=== PATIENT | female | born 1995 | race Caucasian/White ===

== ENCOUNTER 2020-05-21 11:19 | Emergency (ER) | payer OTHER, SELFPAY ==
[2020-05-21 11:30] VITALS: BP 147/91; PULSE 124; RESP 18; TEMP 36.9; O2SAT 97; BMI 29.2
--- NOTE | 2020-05-21 11:45 | HMH.EDGENADL ---
ED Disposition Clinical Impression: Colitis Disposition: Home, Self-Care Condition on Discharge: Good Instructions: DI for Diarrhea and Traveler's Diarrhea -- Adult Referrals: Roberto Winters [Primary Care Provider] - 3 days - Critical Care Critical Care Time: No Attestation: On 05/21/20, the high probability of a clinically significant, sudden or life threatening deterioration of the following system(s) required my full and direct attention, intervention and personal management. The time I documented below is in addition to time spent performing reported procedures but includes the following listed in this critical care notation. Medical Decision Making - Medical Records Medical records reviewed: Yes: I reviewed the patient's medical records. - Louie Inquiry Pt receiving controlled substance: No Vital Signs: 05/21/20 11:30 05/21/20 15:04 05/21/20 15:30 Temperature 98.4 F Temperature Source Oral Pulse Rate [Right Radial] 124 H 112 H 109 H Respiratory Rate 18 20 Blood Pressure [Right Arm] 147/91 H 94/53 L 108/60 L Blood Pressure Mean [Right Arm] 109 66 76 Blood Pressure Source [Right Arm] Automatic Cuff Automatic Cuff Automatic Cuff Blood Pressure Position [Right Arm] Sitting Sitting Sitting 02 Sat by Pulse Oximetry 97 95 100 Oxygen Delivery Method Room Air Room Air - Lab Data Lab results reviewed: Yes: I reviewed the patient's lab results. Lab Results 05/21/20 11:35: WBC 12.1 H, RBC 5.47 H, Hgb 12.4, Hct 39.4, MCV 72.0 L, MCH 22.6 L, MCHC 31.4 L, RDW 17.6 H, Plt Count 250, MPV 8.0, Neut % (Auto) 76.4, Lymph % (Auto) 17.9, [place] % (Auto) 3.9, Eos % (Auto) 1.5, Baso % (Auto) 0.3, Neut # (Auto) 9.3 H, Lymph # (Auto) 2.2, [place] # (Auto) 0.5, Eos # (Auto) 0.2, Baso # (Auto) 0.0 05/21/20 11:35: Sodium 137, Potassium 3.5, Chloride 102, Carbon Dioxide 23, Anion Gap 15.5 H, BUN 7, Creatinine 0.70, Estimated Creat Clear 134, Estimated GFR 100, Est GFR ( Amer) 121, Glucose 79, Calcium 8.8, Total Bilirubin 0.4, AST 21, ALT 13, Alkaline Phosphatase 121, Total Protein 7.2, Albumin 4.0, Globulin 3.2, Albumin/Globulin Ratio 1.3, Lipase 656 H 05/21/20 11:35: SARS-CoV-2 IgG Ab (Rapid) Negative, SARS-CoV-2 IgM Ab (Rapid) Negative 05/21/20 11:35: Serum HCG, Qual Negative 05/21/20 11:50: Lactate 0.8 05/21/20 15:15: Urine Color Yellow, Urine Appearance Clear, Urine pH 6.0, Ur Specific [place] 1.020, Urine Protein Negative, Urine Glucose (UA) Negative, Urine Ketones 3+, Urine Blood Negative, Urine Nitrate Negative, Urine Bilirubin Negative, Urine Urobilinogen 0.2, Ur Leukocyte Esterase Negative, Ur Squamous Epith Cells 10-20 05/21/20 15:15: Urine HCG, Qual Negative Result diagrams: 05/21/20 11:35 05/21/20 11:35 Orders (Tests/Meds): ED MEDICATIONS Generic Name Dose Route Start Last Admin Trade Name Freq PRN Reason Stop Dose Admin Sodium Chloride 1,000 mls @ 999 mls/hr 05/21/20 15:00 05/21/20 15:28 Sod Chlor 0.9% 1000ml Bag IV 05/21/20 16:00 999 mls/hr .Q1H1M NEHA Administration Discontinued Medications Generic Name Dose Route Start Last Admin Trade Name Freq PRN Reason Stop Dose Admin Sodium Chloride 1,000 mls @ 999 mls/hr 05/21/20 11:45 05/21/20 11:54 Sod Chlor 0.9% 1000ml Bag IV 05/21/20 12:45 999 mls/hr .Q1H1M NEHA Administration Sodium Chloride 1,000 mls @ 999 mls/hr 05/21/20 13:00 05/21/20 13:04 Sod Chlor 0.9% 1000ml Bag IV 05/21/20 14:00 999 mls/hr .Q1H1M NEHA Administration Iopamidol 75 ml 05/21/20 14:28 05/21/20 14:29 Iopamidol-370 (76%);100ml Bottle IV 05/21/20 14:29 75 ml ONCE ONE Administration Sodium Chloride 10 ml 05/21/20 14:28 05/21/20 14:29 Sodium Chloride 0.9% 10ml Syr (Rad Only) IV 05/21/20 14:29 10 ml ONCE ONE Administration - CT Data CT Scan: Abdomen, Pelvis Time Received: 15:[address] Reviewed: Yes: I have reviewed the patient's CT results Findings Narrative: Diffuse colitis, 7 mm appendix of uncertain significance Med
[2020-05-21 11:52] LABS: Chloride 102 mmol/L (98-107)
[2020-05-21 11:53] LABS: Basophils % 0.3 % (0.1-2.0); Eosinophils # 0.2 K/mm3 (0.0-0.4); Eosinophils % 1.5 % (0.1-12.0); Hematocrit 39.4 % (37.0-47.0); Hemoglobin 12.4 g/dL (12.2-16.2); Lymphocytes # 2.2 K/mm3 (0.7-4.5); Lymphocytes % 17.9 % (10-50); Mean Corpuscular HGB Conc 31.4 g/dL (31.8-35.4); Mean Corpuscular Hemoglobin 22.6 pg (27.0-31.2); Monocytes # 0.5 K/mm3 (0.1-1.0); Monocytes % 3.9 % (1.7-9.3); Neutrophils # 9.3 K/mm3 (1.8-7.8); Neutrophils % 76.4 % (37.0-80.0); Platelet Count 250 K/mm3 (142-424); Potassium 3.5 mmoL/L (3.5-5.1); Red Blood Count 5.47 M/mm3 (4.20-5.40); Red Cell Distribution Width 17.6 % (11.5-17.5); Sodium 137 mmol/L (136-145); White Blood Count 12.1 K/mm3 (4.8-10.8)
[2020-05-21 11:55] LABS: Alanine Aminotransferase 13 U/L (12-78); Aspartate Amino Transferase 21 U/L (14-36); Blood Urea Nitrogen 7 mg/dl (7-17); Creatinine Clearance Estimated 134 mL/min (50-200); Estimated Glomerular Filt Rate 100 ml/min (>60); GFR (African American) 121 ML/MIN (>60)
[2020-05-21 11:56] LABS: Albumin/Globulin Ratio 1.3 (1.1-1.8); Alkaline Phosphatase 121 U/L (38-126); Anion Gap 15.5 mEq/L (5-15); Bilirubin,Total 0.4 mg/dl (0.2-1.3); Calcium 8.8 mg/dl (8.4-10.2); Carbon Dioxide 23 mmol/L (22.0-30.0); Globulin 3.2 g/dL (1.3-3.2); Glucose 79 mg/dl (74-100); Total Protein,Serum 7.2 g/dl (6.3-8.2)
[2020-05-21 12:01] LABS: Lipase 656 U/L (23-300)
--- NOTE | 2020-05-21 12:05 | CT_ITS ---
PROCEDURE: CT ABDOMEN PELVIS W CON CLINICAL INDICATION: diarrhea, elevated lipase COMPARISON: No exams were available for comparison TECHNIQUE: IV Contrast: 75ML Isovue 370 Oral Contrast None Axial images obtained with sagittal and coronal reformats. All CT scans at the facility use one or more dose reduction, viz: automated exposure control, ma/kV adjustment per patient size (including targeted exams where dose is matched to indication, i.e. head), or iterative reconstruction technique. FINDINGS: LOWER THORAX: No acute finding ABDOMEN & PELVIS: The liver, spleen, adrenal glands, and pancreas have an unremarkable appearance. No renal or ureteral calculi. There is diffuse thickening of the entire colon with mild stranding of the pericolic fat consistent with pancolitis. No obstruction or free air. No evidence pneumatosis. There is mild prominence of the appendix measuring up to 7 mm in diameter. No stranding of the periappendiceal fat.. There is some minimal fluid in the right pericolic gutter. There are few scattered small mesenteric and retroperitoneal lymph nodes. No acute bony findings. IMPRESSION: Diffuse colitis involving the entire colon Mild prominence of the appendix of questionable clinical significance. Dictated by: Benedicto Yan MD 05/21/2020 14:54 Benedicto Yan MD in [place] 05/21/2020 14:54
[2020-05-21 12:16] LABS: Lactic Acid 0.8 mmol/L (0.7-2.1)
[2020-05-21 12:32] LABS: Coronavirus 19 IgG Antibody Negative (Negative); Coronavirus 19 IgM Antibody Negative (Negative)
[2020-05-21 13:05] LABS: HCG Qualitative, Serum Negative (Negative)
--- NOTE | 2020-05-21 13:24 | PC.NURSE ---
Pt going for CT
[2020-05-21 15:04] VITALS: BP 94/53; PULSE 112; O2SAT 95
[2020-05-21 15:26] LABS: Microscopic, Urine URINE MICROSCOPIC (MICROSCOPIC)
[2020-05-21 15:28] LABS: Appearance,Urine CLEAR (Clear); Blood, Urine Negative (Negative); Color,Urine YELLOW (Yellow); Glucose,Urine (UA) Negative (Negative); Ketones,Urine 3+ (Negative); Leukocyte Esterase,Urine Negative (Negative); Nitrate,Urine Negative (Negative); Protein,Urine Negative (Negative); Urobilinogen,Urine 0.2 EU/dl (0.2)
[2020-05-21 15:30] VITALS: BP 108/60; PULSE 109; RESP 20; O2SAT 100
[2020-05-21 15:32] LABS: Urine Pregnancy, HCG Qual. Negative (Negative)
[2020-05-21 15:33] LABS: Bilirubin,Urine Negative (Negative)
[2020-05-21 16:04] VITALS: BP 102/65; PULSE 95; RESP 16; TEMP 36.6; O2SAT 98
== END 2020-05-21 16:06 | disposition home or self-care (01) ==
PROVIDERS: Emergency Provider Emergency Medicine; PCP Internal Medicine
DX: K52.9 Noninfective gastroenteritis and colitis, unspecified (principal)
CPT/HCPCS: 74177; 80053; 81001; 81025; 83605; 83690; 84703; 85025; 86328; 96365; 96366; 99283; Q9967

== ENCOUNTER 2020-05-23 18:11 | Observation (INO) | payer OTHER, SELFPAY ==
[2020-05-23] VITALS (7 sets, daily range): BP systolic 117–141; BP diastolic 79–95; PULSE 112–150; RESP 16–18; TEMP 36.7–36.9; O2SAT 96–100; BMI 29.2; BMI 27.2
--- NOTE | 2020-05-23 18:18 | HMH.EDGENADL ---
ED Disposition Clinical Impression: Colitis Abdominal pain Qualifiers: Abdominal location: generalized Qualified Code(s): R10.84 - Generalized abdominal pain Vomiting Qualifiers: Vomiting type: unspecified Vomiting Intractability: non-intractable Nausea presence: with nausea Qualified Code(s): R11.2 - Nausea with vomiting, unspecified Disposition: Admitted as Observation Condition on Discharge: Fair Referrals: Roberto Winters [Primary Care Provider] - Time of Disposition: 19:45 - Critical Care Critical Care Time: No Attestation: On , the high probability of a clinically significant, sudden or life threatening deterioration of the following system(s) required my full and direct attention, intervention and personal management. The time I documented below is in addition to time spent performing reported procedures but includes the following listed in this critical care notation. Medical Decision Making - Medical Records Medical records reviewed: Yes: I reviewed the patient's medical records. - Louie Inquiry Pt receiving controlled substance: No Vital Signs: 05/23/20 18:13 05/23/20 18:45 Temperature 98.5 F Temperature Source Oral Pulse Rate [Right] 150 H 131 H Respiratory Rate 16 Blood Pressure [Right Arm] 134/95 H Blood Pressure Mean [Right Arm] 108 Blood Pressure Source [Right Arm] Automatic Cuff Automatic Cuff Blood Pressure Position [Right Arm] Sitting Sitting 02 Sat by Pulse Oximetry 99 97 Oxygen Delivery Method Room Air Room Air - Lab Data Lab Results 05/23/20 18:25: SARS-CoV-2 IgG Ab (Rapid) Negative, SARS-CoV-2 IgM Ab (Rapid) Negative 05/23/20 18:26: WBC 14.1 H, RBC 5.75 H, Hgb 12.8, Hct 42.0, MCV 73.0 L, MCH 22.3 L, MCHC 30.5 L, RDW 17.9 H, Plt Count 458 H D, MPV 8.4, Neut % (Auto) 78.0, Lymph % (Auto) 16.3, [place] % (Auto) 4.3, Eos % (Auto) 0.8, Baso % (Auto) 0.7, Neut # (Auto) 11.0 H, Lymph # (Auto) 2.3, [place] # (Auto) 0.6, Eos # (Auto) 0.1, Baso # (Auto) 0.1 05/23/20 18:26: Sodium 137, Potassium 4.6 D, Chloride 109 H, Carbon Dioxide 9 L* D, Anion Gap 23.6 H, BUN 3 L D, Creatinine 0.70, Estimated GFR 100, Est GFR ( Amer) 121, Glucose 113 H, Calcium 9.6, Total Bilirubin 0.4, AST 18, ALT 13, Alkaline Phosphatase 116, Total Protein 8.0, Albumin 4.4, Globulin 3.6 H, Albumin/Globulin Ratio 1.2 Result diagrams: 05/23/20 18:26 05/23/20 18:26 Orders (Tests/Meds): ED MEDICATIONS Generic Name Dose Route Start Last Admin Trade Name Freq PRN Reason Stop Dose Admin Metronidazole 500 mg in 100 mls @ 100 mls/hr 05/23/20 20:00 Flagyl 500mg/100ml Ivpb IV 06/06/20 19:59 Q8H NEHA Protocol Levofloxacin/Dextrose 750 mg in 150 mls @ 100 mls/hr 05/23/20 20:00 Levofloxacin 750mg/150ml Premix IV 06/06/20 19:59 Q24H NEHA Protocol Discontinued Medications Generic Name Dose Route Start Last Admin Trade Name Freq PRN Reason Stop Dose Admin Sodium Chloride 1,000 mls @ 999 mls/hr 05/23/20 18:30 05/23/20 18:36 Sod Chlor 0.9% 1000ml Bag IV 05/23/20 19:30 999 mls/hr .Q1H1M NEHA Administration Iopamidol 75 ml 05/23/20 19:03 05/23/20 19:04 Iopamidol-370 (76%);100ml Bottle IV 05/23/20 19:04 75 ml ONCE ONE Administration Metoclopramide HCl 10 mg 05/23/20 19:27 Metoclopramide Hcl 10mg/2ml Vial IVP 05/23/20 19:28 ONCE ONE Morphine Sulfate 4 mg 05/23/20 18:23 05/23/20 18:36 Morphine 4mg/Ml Syringe IV 05/23/20 18:24 4 mg ONCE ONE Administration Ondansetron HCl 4 mg 05/23/20 18:23 05/23/20 18:36 Ondansetron 4mg/2ml Vial IV 05/23/20 18:24 4 mg ONCE ONE Administration Sodium Chloride 10 ml 05/23/20 19:03 05/23/20 19:04 Sodium Chloride 0.9% 10ml Syr (Rad Only) IV 05/23/20 19:04 10 ml ONCE ONE Administration ORDERS Category Date Time Status CT abdomen pelvis w con Stat Cat Scan 05/23/20 18:32 Taken Lactic Acid Stat Lab 05/23/20 18:17 Ordered UA [Urinalysis and Microscopic] Stat Lab 05/23/20 18:54
--- NOTE | 2020-05-23 18:32 | CT_ITS ---
PROCEDURE: CT ABDOMEN PELVIS W CON CLINICAL INDICATION: abd pain localized right upper quadrant pain COMPARISON: CT CT ABDOMEN PELVIS W CON from 05/21/2020 TECHNIQUE: IV Contrast: 75ML Isovue 370 Oral Contrast None Axial images obtained with sagittal and coronal reformats. All CT scans at the facility use one or more dose reduction, viz: automated exposure control, ma/kV adjustment per patient size (including targeted exams where dose is matched to indication, i.e. head), or iterative reconstruction technique. FINDINGS: LOWER THORAX: No acute finding ABDOMEN & PELVIS: The liver, spleen adrenal glands pancreas and kidneys have an unremarkable appearance. There is some vague increased density within the gallbladder which could be due to stones and/or sludge. Gallbladder ultrasound may provide further evaluation. There remains mild diffuse thickening of the colon throughout with mild stranding of the pericolic fat consistent with colitis. No pneumatosis. No free air or portal venous gas. There is mild prominence of the appendix. No stranding of the periappendiceal fat. No intestinal obstruction or free air. No pelvic mass or abnormal fluid collection.. No acute bony findings. IMPRESSION: 1. Persistent diffuse thickening of the colon with mild stranding of the pericolic fat consistent with pancolitis. 2. Mild nonspecific prominence of the appendix not significantly changed 3. Vague slight increased density of the gallbladder which could be due to underlying sludge and/or stones. Gallbladder ultrasound may provide further evaluation. Dictated by: Benedicto Yan MD 05/24/2020 04:46 Benedicto Yan MD in [place] 05/24/2020 04:46
[2020-05-23 18:36] LABS: Basophils # 0.1 K/mm3 (0-0.2); Basophils % 0.7 % (0.1-2.0); Eosinophils # 0.1 K/mm3 (0.0-0.4); Eosinophils % 0.8 % (0.1-12.0); Hemoglobin 12.8 g/dL (12.2-16.2); Lymphocytes # 2.3 K/mm3 (0.7-4.5); Lymphocytes % 16.3 % (10-50); Mean Corpuscular HGB Conc 30.5 g/dL (31.8-35.4); Mean Corpuscular Hemoglobin 22.3 pg (27.0-31.2); Mean Platelet Volume 8.4 fl (7.4-10.4); Monocytes # 0.6 K/mm3 (0.1-1.0); Monocytes % 4.3 % (1.7-9.3); Platelet Count 458 K/mm3 (142-424); Red Blood Count 5.75 M/mm3 (4.20-5.40); Red Cell Distribution Width 17.9 % (11.5-17.5); White Blood Count 14.1 K/mm3 (4.8-10.8)
[2020-05-23 18:37] LABS: Chloride 109 mmol/L (98-107); Potassium 4.6 mmoL/L (3.5-5.1); Sodium 137 mmol/L (136-145)
[2020-05-23 18:40] LABS: Alanine Aminotransferase 13 U/L (12-78); Albumin Level 4.4 g/dl (3.5-5.0); Albumin/Globulin Ratio 1.2 (1.1-1.8); Alkaline Phosphatase 116 U/L (38-126); Anion Gap 23.6 mEq/L (5-15); Aspartate Amino Transferase 18 U/L (14-36); Bilirubin,Total 0.4 mg/dl (0.2-1.3); Blood Urea Nitrogen 3 mg/dl (7-17); Estimated Glomerular Filt Rate 100 ml/min (>60); GFR (African American) 121 ML/MIN (>60); Globulin 3.6 g/dL (1.3-3.2)
[2020-05-23 18:41] LABS: Calcium 9.6 mg/dl (8.4-10.2); Glucose 113 mg/dl (74-100)
[2020-05-23 18:42] LABS: Carbon Dioxide 9 mmol/L (22.0-30.0)
--- NOTE | 2020-05-23 18:55 | PC.NURSE ---
Pt was unable to urinate.
[2020-05-23 19:11] LABS: Coronavirus 19 IgG Antibody Negative (Negative); Coronavirus 19 IgM Antibody Negative (Negative)
[2020-05-23 20:58] LABS: Lactic Acid 0.8 mmol/L (0.7-2.1)
--- NOTE | 2020-05-23 21:05 | PC.NURSE ---
PT ARRIVED TO FLOOR VIA W/C FROM ED W/STAFF AT 2105
[2020-05-23 23:12] LABS: Microscopic, Urine URINE MICROSCOPIC (MICROSCOPIC)
[2020-05-23 23:14] LABS: Appearance,Urine CLEAR (Clear); Blood, Urine 1+ (Negative); Color,Urine YELLOW (Yellow); Glucose,Urine (UA) Negative (Negative); Ketones,Urine 3+ (Negative); Leukocyte Esterase,Urine Negative (Negative); Nitrate,Urine Negative (Negative); Protein,Urine 2+ (Negative); Specific Gravity, Urine >= 1.030 (1.005-1.030); Urobilinogen,Urine 0.2 EU/dl (0.2)
[2020-05-23 23:31] LABS: Bilirubin,Urine Negative (Negative)
[2020-05-23 23:35] LABS: Bacteria,Urine 1+ /lpf; Mucus,Urine 1+ /lpf
[2020-05-24 04:00] VITALS: BP 104/55; PULSE 116; RESP 16; TEMP 36.5; O2SAT 98
[2020-05-24 05:00] VITALS: BMI 27.2
[2020-05-24 06:45] LABS: Basophils # 0.1 K/mm3 (0-0.2); Basophils % 0.5 % (0.1-2.0); Eosinophils # 0.1 K/mm3 (0.0-0.4); Eosinophils % 0.5 % (0.1-12.0); Hematocrit 38.2 % (37.0-47.0); Lymphocytes # 1.8 K/mm3 (0.7-4.5); Lymphocytes % 17.4 % (10-50); Mean Corpuscular HGB Conc 29.5 g/dL (31.8-35.4); Mean Corpuscular Hemoglobin 21.9 pg (27.0-31.2); Mean Platelet Volume 8.1 fl (7.4-10.4); Monocytes # 0.6 K/mm3 (0.1-1.0); Monocytes % 5.7 % (1.7-9.3); Neutrophils # 7.9 K/mm3 (1.8-7.8); Neutrophils % 75.8 % (37.0-80.0); Platelet Count 356 K/mm3 (142-424); Red Blood Count 5.16 M/mm3 (4.20-5.40); Red Cell Distribution Width 18.3 % (11.5-17.5); White Blood Count 10.4 K/mm3 (4.8-10.8)
[2020-05-24 06:50] LABS: Chloride 112 mmol/L (98-107); Sodium 137 mmol/L (136-145)
[2020-05-24 06:51] LABS: Potassium 3.7 mmoL/L (3.5-5.1)
[2020-05-24 06:53] LABS: Blood Urea Nitrogen 2 mg/dl (7-17); Creatinine Clearance Estimated 145 mL/min (50-200); Estimated Glomerular Filt Rate 120 ml/min (>60); GFR (African American) 145 ML/MIN (>60)
[2020-05-24 06:54] LABS: Anion Gap 15.7 mEq/L (5-15); Carbon Dioxide 13 mmol/L (22.0-30.0); Glucose 106 mg/dl (74-100)
[2020-05-24 07:11] LABS: Hemoglobin 11.3 g/dL (12.2-16.2)
[2020-05-24 07:13] LABS: Calcium 8.3 mg/dl (8.4-10.2)
--- NOTE | 2020-05-24 07:58 | P.CONPHA_ITS ---
[facility] Pharmacy VTE Monitoring - Patient Demographics Admission date: 05/23/20 Report Date: 05/24/20 Time: 07:58 Allergies/Adverse Reactions: Patient Allergies No Known Allergies Allergy (Verified 05/21/20 11:35) Height: 1.55 m Weight: 65.402 kg Patient Problems: Current Active Problems Colitis (Acute) Abdominal pain (Acute) Vomiting (Acute) - VTE Risk Labs: VTE Related Lab Results Hgb 11.3 g/dL (12.2-16.2) L D 05/24/20 05:47 Hct 38.2 % (37.0-47.0) 05/24/20 05:47 Plt Count 356 K/mm3 (142-424) 05/24/20 05:47 BUN 2 mg/dl (7-17) L D 05/24/20 05:47 Creatinine 0.60 mg/dl (0.52-1.04) 05/24/20 05:47 Estimated Creat Clear 145 mL/min (50-200) 05/24/20 05:47 Was VTE Risk Assessment Performed: Yes VTE Score: 0 VTE Risk Level: Very Low Risk - Prophylaxis VTE Prophylaxis Ordered?: Yes Types of VTE Prophylaxis: TEDS Knee High Location of Applied Device: Bilateral Lower Extremeties
[2020-05-24 08:00] VITALS: BP 122/70; PULSE 119; RESP 16; TEMP 36.8; O2SAT 96
--- NOTE | 2020-05-24 08:06 | PC.NURSE ---
Pt. had one episode of nausea, no vomiting; relieved with zofran per mar. Tenderness to rlq; bowel sounds active. No c/o soa, or dizziness.
--- NOTE | 2020-05-24 08:56 | HMH.HP ---
*Admission Date: 05/23/20 <Cassia Cervantes 05/24/20 09:08> *History of present illness: Avis is a 25-year-old female who presented to the emergency department with abdominal pain. She has had pain for the last 4 to 5 days along with diarrhea. Most of the pain is across her lower abdomen. She has been unable to eat or drink anything and yesterday began having nausea and vomiting as well. Denies fevers, chills. She was evaluated in the ER 2 days prior where a CT scan of the abdomen and pelvis was performed. She was given IV fluids and felt better and was discharged home. She presented back to the ER yesterday after the nausea and vomiting started. She was tachycardic at 140 bpm. The ER physician was concerned about acute appendicitis, ruptured appendicitis, and colitis. She was given an IV fluid bolus, 4 mg IV morphine and 4 mg IV Zofran. Her White blood cell count was elevated at 14,000. She had a repeat CT showing pancolitis. She was admitted and started on IV antibiotics. <Cassia Cervantes 05/24/20 09:08> [facility] History I have reviewed the patient's past medical history: Yes <Cassia Ceravntes 05/24/20 09:08> Medical History: Denies:: Diabetes Mellitus Type 2, Hyperlipidemia, Hypertension <Cassia Cervantes 05/24/20 09:08> *Have you ever received a pneumonia vaccine?: No <Cassia Cervantes 05/24/20 09:08> *Have you received a flu vaccine this season?: Yes <Cassia Cervantes 05/24/20 09:08> Laterality Cases: Bilateral: Other <Cassia Cervantes 05/24/20 09:08> Other Surgeries: Yes: <Cassia Cervantes 05/24/20 09:08> - *Social History Last grade of school completed: Some college <Cassia Cervantes 05/24/20 09:08> Smoking Status: Current every day smoker <Cassia Cervantes 05/24/20 09:08> Tobacco Type: cigarettes <Cassia Cervantes 05/24/20 09:08> # Packs/Day (cigarettes): 1 <Cassia Cervantes 05/24/20 09:08> Alcohol Intake: never <VictorianonoelCassia 05/24/20 09:08> *Occupational Status:: employed <VictorianonoelCassia 05/24/20 09:08> Housing: house <VictorianonoelCassia 05/24/20 09:08> Household Members: spouse <HelenCassia 05/24/20 09:08> *Travel in the last 8 weeks: None <Cassia Cervantes 05/24/20 09:08> Family Hx:: No significant family history <HelenCassia 05/24/20 09:08> Review of Systems - Constitutional Reports fatigue, Reports weakness, Denies fever(s) <HelenCassia 05/24/20 09:08> - Eyes Denies blurry vision, Denies double vision <HelenCassia 05/24/20 09:08> - ENT Denies nasal congestion, Denies sore throat <Cassia Cervantes 05/24/20 09:08> - *Cardiovascular Denies chest pain, Denies shortness of breath <HelenCassia 05/24/20 09:08> - *Respiratory Denies cough, Denies shortness of breath <HelenCassia 05/24/20 09:08> - *Gastrointestinal Reports abdominal pain, Reports loose stools, Reports nausea, Reports vomiting <HelenCassia 05/24/20 09:08> - *Genitourinary Denies difficulty urinating, Denies painful urination <Cassia Cervantes 05/24/20 09:08> - *Musculoskeletal Denies joint pain <Cassia Cervantes 05/24/20 09:08> - *Neurologic Reports weakness, Denies headache(s), Denies dizziness <Diogo Cervantesa 05/24/20 09:08> Meds Home Medications Medication Instructions Recorded Confirmed Type No Known Home Medications 05/23/20 05/23/20 History <Osman Parker 05/24/20 09:28> Allergies Allergy/AdvReac Type Severity Reaction Status Date / Time No Known Allergies Allergy Verified 05/21/20 11:35 <Osman Parker 05/24/20 09:28> Exam Vital signs and Labs for Last 24 Hours: Temp Pulse Resp BP Pulse Ox 98.3 F 119 H 16 122/70 96 05/24/20 08:00 05/24/20 08:00 05/24/20 08:00 05/24/20 08:00 05/24/20 08:00 Laboratory Results - last 24 hr 05/23/20 18:25: SARS-CoV-2 IgG Ab (Rapid) Negative, SARS-CoV-2 IgM Ab (Rapid) Negative 05/23/20 18:26: WBC 14.1 H, RBC 5.75 H, Hgb 12.8, Hct 42.0, MCV 73.0 L, MCH 22.3 L, MCHC 30.5 L, RDW 17.9
[2020-05-24 10:14] LABS: Adenovirus F 40/41, stool Not Detected (NotDetected); Astrovirus Not Detected (NotDetected); Campylobacter Not Detected (NotDetected); Clostridium Difficile A/B, PCR Not Detected (NotDetected); Cryptosporidium Not Detected (NotDetected); Cyclospora Cayetanesis Not Detected (NotDetected); Entamoeba histolytica Not Detected (NotDetected); Enteroaggregative E coli Not Detected (NotDetected); Enteropathogenic E coli Not Detected (NotDetected); Enterotoxigenic E coli Not Detected (NotDetected); Giardia lamblia Not Detected (NotDetected); Norovirus Not Detected (NotDetected); Plesimonas Shigalloides, PCR Not Detected (NotDetected); Rotavirus A Not Detected (NotDetected); Salmonella, PCR Not Detected (NotDetected); Sapovirus Not Detected (NotDetected); Shiga-like toxin E coli Not Detected (NotDetected); Shigella Enterovasive E coli Not Detected (NotDetected); Vibrio Cholerae Not Detected (NotDetected); Vibrio, PCR Not Detected (NotDetected); Yersinia Entercolitica, PCR Not Detected (NotDetected)
[2020-05-24 11:37] VITALS: BMI 27.0
[2020-05-24 15:26] VITALS: BP 117/68; PULSE 107; RESP 16; TEMP 36.9; O2SAT 99
[2020-05-24 20:00] VITALS: BP 125/70; PULSE 115; RESP 20; TEMP 37.3; O2SAT 96
--- NOTE | 2020-05-24 21:24 | PC.NURSE ---
PATIENT REQUESTED ZOFRAN 2X DURING THIS RN SHIFT. PATIENT REQUESTED ICE CHIPS. THIS RN PHONED DR. JARA, ORDER RECEIVED TO PLACE PATIENT ON CLEAR LIQUID DIET. PATIENT TOLERATED WELL. NO NEW CONCERNS AT THIS TIME.
[2020-05-25 04:00] VITALS: BP 120/58; PULSE 110; RESP 21; TEMP 36.9; O2SAT 96
--- NOTE | 2020-05-25 06:09 | PC.NURSE ---
No acute changes. Pt has c/o nausea this shift. She states she has had 4 liquid stools this shift. Pt has been tachycardic this shift. Other VSS. Medications administered per jun. No other concerns. Will continue to monitor.
[2020-05-25 08:00] VITALS: BP 130/76; PULSE 125; RESP 16; TEMP 36.8; O2SAT 98
--- NOTE | 2020-05-25 08:55 | HMH.ACPN2 ---
<Cassia Cervantes - Last Filed: 05/25/20 08:55> Internal Medicine - PN: Subj *Date: 05/25/20 *Time: 08:55 Interval history: Patient states she feels about the same today. She still having vomiting and diarrhea. She still has some lower abdominal pain. She was able to rest some last night. Exam Vital signs and Labs for Last 24 Hours: Temp Pulse Resp BP Pulse Ox 98.4 F 110 H 21 120/58 L 96 05/25/20 04:00 05/25/20 04:00 05/25/20 04:00 05/25/20 04:00 05/25/20 04:00 I & O for Last 24 hours: Intake & Output 05/22/20 05/23/20 05/24/20 05/25/20 11:59 11:59 11:59 11:59 Intake Total 1100 / 1100 740 / 740 Balance 1100 / 1100 740 / 740 Weight 143 lb 4.807 oz - Constitutional no acute distress - *Routine Respiratory Exam Present: CTA bilaterally - *Routine Cardiovascular Exam Present: RRR - *Routine Abdominal Exam Present: soft, normoactive bowel sounds, tenderness (bilateral lower quadrants) - *Routine Extremities Exam Absent: cyanosis, clubbing, edema - *Routine Skin Exam Present: pallor, warm. Absent: rash - *Routine Neurological Exam Present: alert, oriented X3 Assessment and Plan (1) Colitis Status: Acute Category: Medical Code(s): K52.9 - Noninfective gastroenteritis and colitis, unspecified (2) Abdominal pain Status: Acute Qualifiers: Abdominal location: generalized Qualified Code(s): R10.84 - Generalized abdominal pain Category: Medical Code(s): R10.9 - Unspecified abdominal pain (3) Vomiting Status: Acute Qualifiers: Vomiting type: unspecified Vomiting Intractability: non-intractable Nausea presence: with nausea Qualified Code(s): R11.2 - Nausea with vomiting, unspecified Category: Medical Code(s): R11.10 - Vomiting, unspecified - Assessment and plan all Dx Assessment and Plan for all problems:: Patient did provide a sample for a diarrhea panel, however will take a few days for this to come back. We will continue IV antibiotics and IV fluids. Will advance to a full liquid diet and start patient on some Phenergan for nausea. <Osman Parker - Last Filed: 05/25/20 09:04> Internal Medicine - PN: Subj *Date: 05/25/20 *Time: 09:04 Exam Vital signs and Labs for Last 24 Hours: Temp Pulse Resp BP Pulse Ox 98.4 F 110 H 21 120/58 L 96 05/25/20 04:00 05/25/20 04:00 05/25/20 04:00 05/25/20 04:00 05/25/20 04:00 I & O for Last 24 hours: Intake & Output 05/22/20 05/23/20 05/24/20 05/25/20 23:59 23:59 23:59 23:59 Intake Total 1100 / 1100 740 / 740 Balance 1100 / 1100 740 / 740 Weight 144 lb 3 oz 143 lb 4.807 oz Assessment and Plan (1) Colitis Status: Acute Category: Medical Code(s): K52.9 - Noninfective gastroenteritis and colitis, unspecified (2) Abdominal pain Status: Acute Qualifiers: Abdominal location: generalized Qualified Code(s): R10.84 - Generalized abdominal pain Category: Medical Code(s): R10.9 - Unspecified abdominal pain (3) Vomiting Status: Acute Qualifiers: Vomiting type: unspecified Vomiting Intractability: non-intractable Nausea presence: with nausea Qualified Code(s): R11.2 - Nausea with vomiting, unspecified Category: Medical Code(s): R11.10 - Vomiting, unspecified - Assessment and plan all Dx Assessment and Plan for all problems:: Saw patient, agree with above note.
[2020-05-25 16:00] VITALS: BP 120/62; PULSE 119; RESP 18; TEMP 36.9; O2SAT 97
--- NOTE | 2020-05-25 19:25 | PC.NURSE ---
pt has reported n/v, medicated per mar, with relief. pt reports 4 bowel movements but does not report blood noted. vss. will cont. to monitor.
[2020-05-25 20:00] VITALS: BP 125/69; PULSE 119; RESP 14; TEMP 37.4; O2SAT 97
--- NOTE | 2020-05-26 03:09 | PC.NURSE ---
Addendum entered by Anabell Green RN 05/26/20 06:29: Pt has been sinus tach this shift. Original Note: No acute changes. Pt has had less nausea this shift. C/O nausea x1. Medicated per jun. Pt states that she has had 2 loose stools. She also stated that she saw some blood in it. Was not observed by staff. VSS. No other concerns. Call light within reach. Will continue to monitor.
[2020-05-26 04:00] VITALS: BP 123/74; PULSE 125; RESP 14; TEMP 37.5; O2SAT 100
[2020-05-26 04:42] VITALS: BMI 28.3
[2020-05-26 06:02] LABS: Basophils % 0.4 % (0.1-2.0); Eosinophils # 0.1 K/mm3 (0.0-0.4); Eosinophils % 0.7 % (0.1-12.0); Hematocrit 30.7 % (37.0-47.0); Hemoglobin 10.1 g/dL (12.2-16.2); Lymphocytes # 1.2 K/mm3 (0.7-4.5); Lymphocytes % 13.8 % (10-50); Mean Corpuscular HGB Conc 32.9 g/dL (31.8-35.4); Mean Corpuscular Hemoglobin 23.5 pg (27.0-31.2); Mean Corpuscular Volume 71.6 fl (81-99); Mean Platelet Volume 8.3 fl (7.4-10.4); Monocytes # 0.4 K/mm3 (0.1-1.0); Monocytes % 4.3 % (1.7-9.3); Neutrophils # 6.8 K/mm3 (1.8-7.8); Neutrophils % 80.8 % (37.0-80.0); Platelet Count 260 K/mm3 (142-424); Red Blood Count 4.29 M/mm3 (4.20-5.40); White Blood Count 8.4 K/mm3 (4.8-10.8)
[2020-05-26 06:31] LABS: Anion Gap 11.5 mEq/L (5-15); Carbon Dioxide 16 mmol/L (22.0-30.0); Chloride 108 mmol/L (98-107); Creatinine Clearance Estimated 182 mL/min (50-200); Estimated Glomerular Filt Rate 148 ml/min (>60); GFR (African American) 179 ML/MIN (>60); Glucose 72 mg/dl (74-100); Sodium 133 mmol/L (136-145)
[2020-05-26 06:49] LABS: Blood Urea Nitrogen < 2 mg/dl (7-17)
[2020-05-26 06:50] LABS: Potassium 2.5 mmoL/L (3.5-5.1)
[2020-05-26 06:55] LABS: Calcium 7.2 mg/dl (8.4-10.2)
--- NOTE | 2020-05-26 06:58 | PC.NURSE ---
MD notified about critical lab result of potassium 2.5. PO potassium 20 meq TID ordered.
[2020-05-26 08:00] VITALS: BP 118/69; PULSE 117; RESP 17; TEMP 37.8; O2SAT 96
--- NOTE | 2020-05-26 08:12 | P.PN_ITS ---
Internal Medicine - PN: Subj *Date: 05/26/20 *Time: 08:32 Interval history: Patient feels a little better this morning. She took only a few bites of her full liquid diet yesterday. Exam Vital signs and Labs for Last 24 Hours: Temp Pulse Resp BP Pulse Ox 99.5 F 125 H 14 123/74 100 05/26/20 04:00 05/26/20 04:00 05/26/20 04:00 05/26/20 04:00 05/26/20 04:00 Laboratory Results - last 24 hr 05/26/20 04:50: WBC 8.4, RBC 4.29, Hgb 10.1 L, Hct 30.7 L, MCV 71.6 L, MCH 23.5 L, MCHC 32.9, RDW 19.0 H, Plt Count 260 D, MPV 8.3, Neut % (Auto) 80.8 H, Lymph % (Auto) 13.8, [place] % (Auto) 4.3, Eos % (Auto) 0.7, Baso % (Auto) 0.4, Neut # (Auto) 6.8, Lymph # (Auto) 1.2, [place] # (Auto) 0.4, Eos # (Auto) 0.1, Baso # (Auto) 0.0 05/26/20 04:50: Sodium 133 L, Potassium 2.5 L* D, Chloride 108 H, Carbon Dioxide 16 L D, Anion Gap 11.5, BUN < 2 L, Creatinine 0.50 L, Estimated Creat Clear 182, Estimated GFR 148, Est GFR ( Amer) 179 D, Glucose 72 L, Calcium 7.2 L D Vital Signs - 24 hr 05/25/20 16:00 05/25/20 20:00 05/26/20 04:00 Temperature 98.5 F 99.4 F 99.5 F Pulse Rate [Right] 119 H 119 H 125 H Respiratory Rate 18 14 14 Blood Pressure [Right Arm] 120/62 125/69 123/74 02 Sat by Pulse Oximetry 97 97 100 I & O for Last 24 hours: Intake & Output 05/23/20 05/24/20 05/25/20 05/26/20 23:59 23:59 23:59 23:59 Intake Total 1100 / 1100 740 / 740 1080 / 1080 480 / 480 Balance 1100 / 1100 740 / 740 1080 / 1080 480 / 480 Weight 144 lb 3 oz 143 lb 4.807 oz 150 lb 1 oz - Constitutional no acute distress - *Routine HEENT Exam Head: Present: normocephalic Eye: Present: EOMI ENT: Present: mucous membranes moist - *Routine Neck Exam Present: supple. Absent: lymphadenopathy - *Routine Respiratory Exam Present: CTA bilaterally - *Routine Cardiovascular Exam Present: RRR - *Routine Abdominal Exam Present: soft, normoactive bowel sounds, tenderness (periumbilical). Absent: rebound, guarding - *Routine Extremities Exam Absent: cyanosis, clubbing, edema - *Routine Skin Exam Present: warm. Absent: rash - *Routine Neurological Exam Present: alert, oriented X3 Assessment and Plan (1) Colitis Status: Acute Category: Medical Code(s): K52.9 - Noninfective gastroenteritis and colitis, unspecified (2) Abdominal pain Status: Acute Qualifiers: Abdominal location: generalized Qualified Code(s): R10.84 - Generalized abdominal pain Category: Medical Code(s): R10.9 - Unspecified abdominal pain (3) Vomiting Status: Acute Qualifiers: Vomiting type: unspecified Vomiting Intractability: non-intractable Nausea presence: with nausea Qualified Code(s): R11.2 - Nausea with vomiting, unspecified Category: Medical Code(s): R11.10 - Vomiting, unspecified (4) Hypokalemia Status: Acute Category: Medical Code(s): E87.6 - Hypokalemia - Assessment and plan all Dx Assessment and Plan for all problems:: Pt is improving, replace potassium, await stool study.
[2020-05-26 13:00] VITALS: BP 117/64; PULSE 110; RESP 16; TEMP 36.7; O2SAT 100
[2020-05-26 15:45] VITALS: BP 109/62; PULSE 115; RESP 16; TEMP 36.7; O2SAT 96
--- NOTE | 2020-05-26 15:55 | PC.NURSE ---
Patient is resting in bed. Neurologically is intact. Cardiac is normotensive and remains on room air. Patient was admitted for colitis and abdominal pain with n/v/d. Patient has only required one dose of zofran today due to nausea. No diarrhea or vomiting. Has tolerated roughly half of her meals today. New IV required due to leaking of existing IV> IV removed. Patient is hopeful to go home tomorrow. No issues or concerns. Will continue to monitor.
--- NOTE | 2020-05-26 19:05 | PC.NURSE ---
report received from Marisa Willson RN
[2020-05-26 20:00] VITALS: BP 107/52; PULSE 119; RESP 16; TEMP 37.3; O2SAT 100
[2020-05-27 04:00] VITALS: BP 102/59; PULSE 118; RESP 14; TEMP 37.4; O2SAT 98
--- NOTE | 2020-05-27 05:21 | PC.NURSE ---
pt has rested well throughout shift, pt alert and oriented and able to make needs known, no change from previous assesment, pt states she has had two episodes of diarrhea this shift, denies abdominal pain or nausea at this time, vss will continue to monitor
[2020-05-27 06:00] VITALS: BMI 28.4
[2020-05-27 06:16] LABS: Basophils # 0.1 K/mm3 (0-0.2); Basophils % 0.5 % (0.1-2.0); Eosinophils # 0.1 K/mm3 (0.0-0.4); Eosinophils % 0.5 % (0.1-12.0); Hemoglobin 9.3 g/dL (12.2-16.2); Lymphocytes # 1.8 K/mm3 (0.7-4.5); Lymphocytes % 18.2 % (10-50); Mean Corpuscular HGB Conc 31.6 g/dL (31.8-35.4); Mean Corpuscular Hemoglobin 22.6 pg (27.0-31.2); Mean Corpuscular Volume 71.4 fl (81-99); Monocytes # 0.5 K/mm3 (0.1-1.0); Monocytes % 4.7 % (1.7-9.3); Neutrophils # 7.3 K/mm3 (1.8-7.8); Platelet Count 301 K/mm3 (142-424); Red Blood Count 4.14 M/mm3 (4.20-5.40); Red Cell Distribution Width 18.7 % (11.5-17.5); White Blood Count 9.6 K/mm3 (4.8-10.8)
[2020-05-27 06:19] LABS: Hematocrit 29.5 % (37.0-47.0)
[2020-05-27 06:22] LABS: Chloride 106 mmol/L (98-107); Sodium 132 mmol/L (136-145)
[2020-05-27 06:25] LABS: Carbon Dioxide 19 mmol/L (22.0-30.0); Creatinine Clearance Estimated 182 mL/min (50-200); Estimated Glomerular Filt Rate 148 ml/min (>60); GFR (African American) 179 ML/MIN (>60)
[2020-05-27 06:26] LABS: Calcium 7.4 mg/dl (8.4-10.2); Glucose 95 mg/dl (74-100)
[2020-05-27 06:45] LABS: Blood Urea Nitrogen < 2 mg/dl (7-17)
[2020-05-27 08:00] VITALS: BP 117/68; PULSE 121; RESP 18; TEMP 36.9; O2SAT 98
--- NOTE | 2020-05-27 08:35 | HMH.ACPN2 ---
Internal Medicine - PN: Subj *Date: 05/27/20 *Time: 08:35 Interval history: Patient feels better today, tolerating full liquid diet, no vomiting in the past 24 hours. Exam Vital signs and Labs for Last 24 Hours: Temp Pulse Resp BP Pulse Ox 98.4 F 121 H 18 117/68 98 05/27/20 08:00 05/27/20 08:00 05/27/20 08:00 05/27/20 08:00 05/27/20 08:00 Laboratory Results - last 24 hr 05/27/20 05:55: WBC 9.6, RBC 4.14 L, Hgb 9.3 L, Hct 29.5 L, MCV 71.4 L, MCH 22.6 L, MCHC 31.6 L, RDW 18.7 H, Plt Count 301, MPV 9.0, Neut % (Auto) 76.0, Lymph % (Auto) 18.2, [place] % (Auto) 4.7, Eos % (Auto) 0.5, Baso % (Auto) 0.5, Neut # (Auto) 7.3, Lymph # (Auto) 1.8, [place] # (Auto) 0.5, Eos # (Auto) 0.1, Baso # (Auto) 0.1 05/27/20 05:55: Sodium 132 L, Potassium 3.0 L, Chloride 106, Carbon Dioxide 19 L, Anion Gap 10.0, BUN < 2 L, Creatinine 0.50 L, Estimated Creat Clear 182, Estimated GFR 148, Est GFR ( Amer) 179, Glucose 95, Calcium 7.4 L Vital Signs - 24 hr 05/26/20 13:00 05/26/20 15:45 05/26/20 20:00 Temperature 98.1 F 98.1 F 99.1 F Pulse Rate [Right] 110 H 115 H 119 H Respiratory Rate 16 16 16 Blood Pressure [Right Arm] 117/64 109/62 L 107/52 L 02 Sat by Pulse Oximetry 100 96 100 05/27/20 04:00 05/27/20 08:00 Temperature 99.4 F 98.4 F Pulse Rate [Right] 118 H 121 H Respiratory Rate 14 18 Blood Pressure [Right Arm] 102/59 L 117/68 02 Sat by Pulse Oximetry 98 98 I & O for Last 24 hours: Intake & Output 05/24/20 05/25/20 05/26/20 05/27/20 23:59 23:59 23:59 23:59 Intake Total 740 / 740 1080 / 1080 1440 / 1440 Balance 740 / 740 1080 / 1080 1440 / 1440 Weight 143 lb 4.807 oz 150 lb 1 oz 150 lb 8 oz - Constitutional no acute distress - *Routine HEENT Exam Head: Present: normocephalic Eye: Present: EOMI ENT: Present: mucous membranes moist - *Routine Neck Exam Present: supple. Absent: lymphadenopathy - *Routine Respiratory Exam Present: CTA bilaterally - *Routine Cardiovascular Exam Present: RRR - *Routine Abdominal Exam Present: soft, normoactive bowel sounds, tenderness (minimal periumbilical) - *Routine Extremities Exam Absent: cyanosis, clubbing, edema - *Routine Skin Exam Present: warm. Absent: rash - *Routine Neurological Exam Present: alert, oriented X3 Assessment and Plan (1) Colitis Status: Acute Category: Medical Code(s): K52.9 - Noninfective gastroenteritis and colitis, unspecified (2) Abdominal pain Status: Acute Qualifiers: Abdominal location: generalized Qualified Code(s): R10.84 - Generalized abdominal pain Category: Medical Code(s): R10.9 - Unspecified abdominal pain (3) Vomiting Status: Acute Qualifiers: Vomiting type: unspecified Vomiting Intractability: non-intractable Nausea presence: with nausea Qualified Code(s): R11.2 - Nausea with vomiting, unspecified Category: Medical Code(s): R11.10 - Vomiting, unspecified (4) Hypokalemia Status: Acute Category: Medical Code(s): E87.6 - Hypokalemia - Assessment and plan all Dx Assessment and Plan for all problems:: OK to discharge home today, with Levaquin, Flagyl, Zofran and potassium, f/u with Dr. Winters in 1 week.
--- NOTE | 2020-05-27 14:23 | HMH.DCSUM ---
General - General Admission date:: 05/23/20 Discharge date: 05/27/20 HPI HPI: Avis was a 25-year-old female who presented to the emergency department with abdominal pain. She had had pain for the prior 4 to 5 days along with diarrhea. Most of the pain was across her lower abdomen. She had been unable to eat or drink anything and had begun having nausea and vomiting as well the day prior. Denied fevers or chills. She had been evaluated in the ER 2 days prior where a CT scan of the abdomen and pelvis was performed. She was given IV fluids and felt better and was discharged home. She presented back to the ER when the nausea and vomiting started. She was tachycardic at 140 bpm. The ER physician was concerned about acute appendicitis, ruptured appendicitis, and colitis. She was given an IV fluid bolus, 4 mg IV morphine, and 4 mg IV Zofran. Her white blood cell count was elevated at 14,000. She had a repeat CT scan showing pancolitis. She was admitted and started on IV antibiotics. Hospital Course Hospital Course: The following morning, she was feeling slightly better. Her white blood cell count had normalized. Her vomiting had stopped although she continued with diarrhea. She was tolerating ice chips. Her IV antibiotics were continued. By the morning of 05/25/2020, she was feeling about the same. She continued with vomiting and diarrhea and stool sample was obtained for diarrhea panel. She was advanced to a full liquid diet and started on Phenergan for nausea. On 05/26/2020 she continued to improve although her appetite remained decreased. She was started on oral potassium replacement for a potassium of 2.7 which did improve to 3.0. By the morning of 05/27/2020, she was feeling better and was tolerating full liquid diet with no vomiting. She was felt to be stable for discharge home with Levaquin, Flagyl, Zofran, and potassium. She was instructed to follow up with Dr. Winters in 1 week. At the time of this writing, results of diarrhea panel remain pending. Objective Vital signs: Temp Pulse Resp BP Pulse Ox 98.4 F 121 H 18 117/68 98 05/27/20 08:00 05/27/20 08:00 05/27/20 08:00 05/27/20 08:00 05/27/20 08:00 Results Labs on day of discharge: Labs from last 24 hours 05/27/20 05/27/20 05:55 05:55 WBC 9.6 RBC 4.14 L Hgb 9.3 L Hct 29.5 L MCV 71.4 L MCH 22.6 L MCHC 31.6 L RDW 18.7 H Plt Count 301 MPV 9.0 Neut % (Auto) 76.0 Lymph % (Auto) 18.2 [place] % (Auto) 4.7 Eos % (Auto) 0.5 Baso % (Auto) 0.5 Neut # (Auto) 7.3 Lymph # (Auto) 1.8 [place] # (Auto) 0.5 Eos # (Auto) 0.1 Baso # (Auto) 0.1 Sodium 132 L Potassium 3.0 L Chloride 106 Carbon Dioxide 19 L Anion Gap 10.0 BUN < 2 L Creatinine 0.50 L Estimated Creat Clear 182 Estimated GFR 148 Est GFR ( Amer) 179 Glucose 95 Calcium 7.4 L DS: Diagnosis - Discharge Diagnosis (1) Colitis Status: Acute (2) Abdominal pain Status: Acute (3) Vomiting Status: Acute (4) Hypokalemia Status: Acute Discharge Plan - Patient Discharge Instructions ACTIVITY: Continue current activity Additional Instructions: Nursing Diagnosis: Knowledge Deficit Disease/Condition Goal(s): Education of disease process Instruction(s): Follow provider plan/instructions (See attached discharge education) Follow/up with primary care provider as instructed in discharge packet Patient Instructions: Nausea and Vomiting-Adult, DI for Colitis - Follow up Plan Follow up with: Roberto Winters [Primary Care Provider] - 06/03/20 9:50 am Disposition: Home, Self-Usp Medications: Home Medications Medication Instructions Recorded Confirmed Type Potassium Chloride 10 meq PO DAILY #10 tablet.er 05/27/20 Rx levoFLOXacin [Levaquin 500mg 500 mg PO DAILY #5 tab 05/27/20 Rx tab] metroNIDAZOLE [Flagyl 500mg 500 mg PO TID #15 t
== END 2020-05-27 10:35 | disposition home or self-care (01) ==
LOC: ER 19:45 → 2ND 21:17
PROVIDERS: Admitting Provider Family Medicine; Emergency Provider Emergency Medicine; PCP Internal Medicine; Visit Provider Family Medicine
DX: K52.9 Noninfective gastroenteritis and colitis, unspecified (principal); R10.9 Unspecified abdominal pain; Z72.0 Tobacco use; E87.6 Hypokalemia; R11.10 Vomiting, unspecified; Z79.899 Other long term (current) drug therapy
CPT/HCPCS: 36415; 74177; 80048; 80053; 81001; 83605; 85025; 86328; 87507; 96365; 96367; 96375; 99284; G0378; J1956; J2405; Q9967

== ENCOUNTER 2020-05-31 14:34 | Outpatient (CLI) | payer OTHER, SELFPAY ==
[2020-05-31 15:00] VITALS: BMI 26.0
[2020-05-31 15:07] VITALS: BP 103/63; PULSE 115; RESP 18; TEMP 36.2
[2020-05-31 15:11] LABS: Basophils # 0.1 K/mm3 (0-0.2); Eosinophils # 0.1 K/mm3 (0.0-0.4); Hematocrit 33.7 % (37.0-47.0); Hemoglobin 10.9 g/dL (12.2-16.2); Red Cell Distribution Width 17.9 % (11.5-17.5)
[2020-05-31 15:15] LABS: Basophils % 0.6 % (0.1-2.0); Eosinophils % 0.5 % (0.1-12.0); Lymphocytes # 1.9 K/mm3 (0.7-4.5); Lymphocytes % 14.8 % (10-50); Mean Corpuscular HGB Conc 32.4 g/dL (31.8-35.4); Mean Corpuscular Hemoglobin 22.4 pg (27.0-31.2); Mean Corpuscular Volume 69.2 fl (81-99); Mean Platelet Volume 9.4 fl (7.4-10.4); Monocytes # 0.5 K/mm3 (0.1-1.0); Monocytes % 3.7 % (1.7-9.3); Neutrophils # 10.1 K/mm3 (1.8-7.8); Neutrophils % 80.4 % (37.0-80.0); Platelet Count 563 K/mm3 (142-424); Red Blood Count 4.88 M/mm3 (4.20-5.40); White Blood Count 12.6 K/mm3 (4.8-10.8)
[2020-05-31 15:19] LABS: Anion Gap 12.2 mEq/L (5-15); Blood Urea Nitrogen 4 mg/dl (7-17); Calcium 8.1 mg/dl (8.4-10.2); Carbon Dioxide 26 mmol/L (22.0-30.0); Chloride 92 mmol/L (98-107); Creatinine Clearance Estimated 119 mL/min (50-200); Estimated Glomerular Filt Rate 100 ml/min (>60); GFR (African American) 121 ML/MIN (>60); Glucose 133 mg/dl (74-100); Sodium 128 mmol/L (136-145)
[2020-05-31 15:20] LABS: Potassium 2.2 mmoL/L (3.5-5.1)
[2020-05-31 17:20] VITALS: BP 127/73; PULSE 121; RESP 18
[2020-05-31 17:26] LABS: Adenovirus F 40/41, stool Not Detected (NotDetected); Astrovirus Not Detected (NotDetected); Campylobacter Not Detected (NotDetected); Clostridium Difficile A/B, PCR Not Detected (NotDetected); Cryptosporidium Not Detected (NotDetected); Cyclospora Cayetanesis Not Detected (NotDetected); Entamoeba histolytica Not Detected (NotDetected); Enteroaggregative E coli Not Detected (NotDetected); Enteropathogenic E coli Not Detected (NotDetected); Enterotoxigenic E coli Not Detected (NotDetected); Giardia lamblia Not Detected (NotDetected); Norovirus Not Detected (NotDetected); Plesimonas Shigalloides, PCR Not Detected (NotDetected); Rotavirus A Not Detected (NotDetected); Salmonella, PCR Not Detected (NotDetected); Shiga-like toxin E coli Not Detected (NotDetected); Shigella Enterovasive E coli Not Detected (NotDetected); Vibrio Cholerae Not Detected (NotDetected); Vibrio, PCR Not Detected (NotDetected); Yersinia Entercolitica, PCR Not Detected (NotDetected)
[2020-06-04 19:57] LABS: Sapovirus Not Detected (NotDetected)
== END 2020-05-31 17:20 | disposition home or self-care (01) ==
LOC: INF 14:37
PROVIDERS: PCP Internal Medicine; Visit Provider Internal Medicine
DX: K52.9 Noninfective gastroenteritis and colitis, unspecified (principal); E86.0 Dehydration
CPT/HCPCS: 80048; 85025; 87507; 96360; 96361; J2405

== ENCOUNTER 2020-06-17 09:43 | Inpatient (IN) | payer OTHER, SELFPAY ==
[2020-06-17] VITALS (7 sets, daily range): BP systolic 90–113; BP diastolic 57–75; PULSE 76–128; RESP 13–18; TEMP 36.3–36.7; O2SAT 95–100; BMI 25.4; BMI 25.0
--- NOTE | 2020-06-17 09:44 | HMH.EDABDPAI ---
ED Disposition Clinical Impression: Colitis, Hypokalemia, Hyponatremia Disposition: Admitted as Observation Condition on Discharge: Fair Referrals: Roberto Winters [Primary Care Provider] - Time of Disposition: 11:36 - Critical Care Critical Care Time: No Attestation: On , the high probability of a clinically significant, sudden or life threatening deterioration of the following system(s) required my full and direct attention, intervention and personal management. The time I documented below is in addition to time spent performing reported procedures but includes the following listed in this critical care notation. Medical Decision Making - Louie Inquiry Pt receiving controlled substance: No Vital Signs: 06/17/20 09:43 06/17/20 10:11 06/17/20 10:56 Temperature 97.4 F L Temperature Source Oral Pulse Rate [Left Radial] 128 H 76 98 H Respiratory Rate 16 18 16 Blood Pressure [Left Arm] 90/57 L 104/67 L 103/71 L Blood Pressure Mean [Left Arm] 68 79 81 Blood Pressure Source [Left Arm] Automatic Cuff Automatic Cuff Blood Pressure Position [Left Arm] Sitting Supine 02 Sat by Pulse Oximetry 98 95 100 Oxygen Delivery Method Room Air Room Air - Lab Data Lab results reviewed: Yes: I reviewed the patient's lab results. Lab Results 06/17/20 09:50: WBC 10.5, RBC 4.43, Hgb 9.9 L, Hct 31.3 L, MCV 70.7 L, MCH 22.3 L, MCHC 31.5 L, RDW 17.5, Plt Count 453 H, MPV 7.2 L, Neut % (Auto) 85.7 H, Lymph % (Auto) 10.9, [place] % (Auto) 2.6, Eos % (Auto) 0.3, Baso % (Auto) 0.4, Neut # (Auto) 9.0 H, Lymph # (Auto) 1.2, [place] # (Auto) 0.3, Eos # (Auto) 0.0, Baso # (Auto) 0.0, Total Counted 100, Neutrophils % (Manual) 86 H, Lymphocytes % (Manual) 12, Monocytes % (Manual) 2, Platelet Estimate Normal, RBC Morphology Normal 06/17/20 09:50: Sodium 123 L, Potassium 2.4 L*, Chloride 84 L, Carbon Dioxide 36 H, Anion Gap 5.4, BUN 10, Creatinine 0.50 L, Estimated Creat Clear 163, Estimated GFR 148, Est GFR ( Amer) 179, Glucose 118 H, Calcium 6.9 L, Total Bilirubin 0.3, AST 21, ALT 10 L, Alkaline Phosphatase 139 H, Total Protein 5.2 L D, Albumin 1.9 L, Globulin 3.3 H, Albumin/Globulin Ratio 0.6 L 06/17/20 10:18: Lactate 1.2 Result diagrams: 06/17/20 09:50 06/17/20 09:50 Orders (Tests/Meds): ED MEDICATIONS Generic Name Dose Route Start Last Admin Trade Name Freq PRN Reason Stop Dose Admin Potassium Chloride/Water 100 mls @ 50 mls/hr 06/17/20 10:15 06/17/20 10:49 Potassium Chloride 20meq/100ml Ivpb IV 06/17/20 16:14 50 mls/hr Q2H NEHA Administration Discontinued Medications Generic Name Dose Route Start Last Admin Trade Name Freq PRN Reason Stop Dose Admin Sodium Chloride 1,000 mls @ 999 mls/hr 06/17/20 10:00 06/17/20 10:05 Sod Chlor 0.9% 1000ml Bag IV 06/17/20 11:00 999 mls/hr .Q1H1M NEHA Administration Morphine Sulfate 2 mg 06/17/20 09:59 06/17/20 10:10 Morphine 2mg/Ml Syringe IV 06/17/20 10:00 Not Given ONCE ONE Morphine Sulfate 2 mg 06/17/20 10:02 06/17/20 10:05 Morphine 2mg/Ml Syringe IV 06/17/20 10:03 2 mg ONCE ONE Administration ORDERS Category Date Time Status Urinalysis and Microscopic Stat Lab 06/17/20 09:58 Ordered Urine , HCG Qual. Stat Lab 06/17/20 09:58 Ordered Medical Decision Narrative: 25yo F presents for worsening of her colitis symptoms. Patient was recently admitted and states she is no better now. Laboratory studies reveal a persistent hypokalemia along with a worsening hyponatremia. Patient is receiving IV fluids and IV pain medication at this time. Patient recently underwent CT of the abdomen and pelvis I feel an additional scan at this time is unnecessary. She has no new symptoms, only worsening of her previous symptoms. Patient is intolerant to p.o. intake at this time and will therefore require potassium repletion via IV. This will take several hours. Patient would benefit from admission for further treatment and evaluation. Care i
[2020-06-17 10:04] LABS: Basophils % 0.4 % (0.1-2.0); Eosinophils % 0.3 % (0.1-12.0); Hematocrit 31.3 % (37.0-47.0); Hemoglobin 9.9 g/dL (12.2-16.2); Lymphocytes # 1.2 K/mm3 (0.7-4.5); Lymphocytes % 10.9 % (10-50); Mean Corpuscular HGB Conc 31.5 g/dL (31.8-35.4); Mean Corpuscular Hemoglobin 22.3 pg (27.0-31.2); Mean Corpuscular Volume 70.7 fl (81-99); Mean Platelet Volume 7.2 fl (7.4-10.4); Monocytes # 0.3 K/mm3 (0.1-1.0); Monocytes % 2.6 % (1.7-9.3); Neutrophils % 85.7 % (37.0-80.0); Platelet Count 453 K/mm3 (142-424); Red Blood Count 4.43 M/mm3 (4.20-5.40); Red Cell Distribution Width 17.5 % (11.5-17.5); White Blood Count 10.5 K/mm3 (4.8-10.8)
[2020-06-17 10:06] LABS: MANUAL DIFFERENTIAL MANUAL DIFFERENTIAL (MANUAL DIFF)
[2020-06-17 10:09] LABS: Chloride 84 mmol/L (98-107)
[2020-06-17 10:10] LABS: Sodium 123 mmol/L (136-145)
[2020-06-17 10:11] LABS: Potassium 2.4 mmoL/L (3.5-5.1)
[2020-06-17 10:12] LABS: Alanine Aminotransferase 10 U/L (12-78); Aspartate Amino Transferase 21 U/L (14-36); Blood Urea Nitrogen 10 mg/dl (7-17); Creatinine Clearance Estimated 163 mL/min (50-200); Estimated Glomerular Filt Rate 148 ml/min (>60); GFR (African American) 179 ML/MIN (>60)
--- NOTE | 2020-06-17 10:12 | PC.NURSE ---
lab called to draw lactic
[2020-06-17 10:13] LABS: Albumin Level 1.9 g/dl (3.5-5.0); Albumin/Globulin Ratio 0.6 (1.1-1.8); Alkaline Phosphatase 139 U/L (38-126); Anion Gap 5.4 mEq/L (5-15); Bilirubin,Total 0.3 mg/dl (0.2-1.3); Carbon Dioxide 36 mmol/L (22.0-30.0); Globulin 3.3 g/dL (1.3-3.2); Glucose 118 mg/dl (74-100); Total Protein,Serum 5.2 g/dl (6.3-8.2)
--- NOTE | 2020-06-17 10:15 | PC.NURSE ---
notified ER MD of Potassium 2.4
[2020-06-17 10:16] LABS: Calcium 6.9 mg/dl (8.4-10.2)
[2020-06-17 10:32] LABS: Lymphocytes % 12 % (10-50); Monocytes % 2 % (2-9); Neutrophils % 86 % (42-76); Platelet Estimate Normal; RBC Morphology Normal; Total Cells Counted 100
[2020-06-17 10:43] LABS: Lactic Acid 1.2 mmol/L (0.7-2.1)
--- NOTE | 2020-06-17 11:11 | PC.NURSE ---
dike supervisor for service paged
--- NOTE | 2020-06-17 11:15 | PC.NURSE ---
speaking with Dr Alegria
--- NOTE | 2020-06-17 11:50 | PC.NURSE ---
notified care management of admission
--- NOTE | 2020-06-17 13:01 | PC.NURSE ---
lab states pt covid swab has 130 minutes left on result notified housekeeper child care that we have no bed available in ER, states she will notify second floor to use ppe with pt until results are back and she will have them come get pt.
--- NOTE | 2020-06-17 13:19 | PC.NURSE ---
Pt arrived to the floor at this time.
--- NOTE | 2020-06-17 13:22 | PC.NURSE ---
report given to LI brush from second floor
--- NOTE | 2020-06-17 13:25 | HMH.PHAVTE ---
[facility] Pharmacy VTE Monitoring - Patient Demographics Admission date: 06/17/20 Report Date: 06/17/20 Time: 13:26 Allergies/Adverse Reactions: Patient Allergies No Known Allergies Allergy (Verified 05/21/20 11:35) Height: 1.55 m Weight: 61.235 kg Patient Problems: Current Active Problems Colitis (Acute) Hypokalemia (Acute) Hyponatremia (Acute) - VTE Risk Labs: VTE Related Lab Results Hgb 9.9 g/dL (12.2-16.2) L 06/17/20 09:50 Hct 31.3 % (37.0-47.0) L 06/17/20 09:50 Plt Count 453 K/mm3 (142-424) H 06/17/20 09:50 BUN 10 mg/dl (7-17) 06/17/20 09:50 Creatinine 0.50 mg/dl (0.52-1.04) L 06/17/20 09:50 Estimated Creat Clear 163 mL/min (50-200) 06/17/20 09:50 - Prophylaxis VTE Prophylaxis Ordered?: Yes Types of VTE Prophylaxis: IPCS Thigh High Location of Applied Device: Bilateral Lower Extremeties
[2020-06-17 15:57] LABS: Microscopic, Urine URINE MICROSCOPIC (MICROSCOPIC)
[2020-06-17 16:01] LABS: Appearance,Urine CLEAR (Clear); Blood, Urine Negative (Negative); Color,Urine YELLOW (Yellow); Glucose,Urine (UA) Negative (Negative); Ketones,Urine 2+ (Negative); Leukocyte Esterase,Urine Negative (Negative); Nitrate,Urine Negative (Negative); PH,Urine 6.5 (5.0-8.5); Protein,Urine TRACE (Negative); Specific Gravity, Urine 1.015 (1.005-1.030); Urobilinogen,Urine 0.2 EU/dl (0.2)
--- NOTE | 2020-06-17 16:01 | PC.NURSE ---
Report given to Jami Carreno RN at this time. Pt moving to room 265 per positive COVID PCR
[2020-06-17 16:06] LABS: Urine Pregnancy, HCG Qual. Negative (Negative)
[2020-06-17 16:07] LABS: Bilirubin,Urine Negative (Negative)
[2020-06-17 16:15] LABS: Bacteria,Urine 1+ /lpf; Mucus,Urine 2+ /lpf; WBC,Urine 20-50 #/hpf (0-3)
--- NOTE | 2020-06-17 16:53 | HMH.CONS ---
*Admission Date: 06/17/20 *Reason for consult:: Colitis, suspected IBD *History of present illness: This is a 25-year-old female patient who has been seen in the ER and the hospital multiple times over the past month with symptoms of nausea, vomiting, diarrhea and bloody stools. She came to the ER initially and was diagnosed with colitis. She initially improved with IV fluids and was discharged home. She did not improve at home, came back through the ER and was admitted with nausea, vomiting, abdominal pain and persistent colitis 05/23/2020. Stool panel was negative at that time she did have an elevated white blood cell count of 14,000. CT scan on 05/23/2020 showed pancolitis with mild stranding of the pericolic fat. She was treated with IV Levaquin and Flagyl and reports that she was discharged home with oral Levaquin and Flagyl. She reports that she was only able to take about 3 days of the medication at home because she had such severe nausea and vomiting she could not keep it down. The patient reports that after arriving home she began to have a loss of taste and smell and was diagnosed with Covid-19 two weeks ago. Since then she has not had resolution of her symptoms. She has developed significantly more fatigue. She has been unable to hydrate herself appropriately. Her mucous membranes are dry and she appears acutely ill. She is having rectal bleeding, bright red blood per rectum every day for over a month. She came back to the ER and is now admitted again. Her hemoglobin dropped from 12.8 to 9.9 since initial hospitalization 1 month ago. She is pale and reports fatigue and tiredness. She is hyponatremic and hypokalemic with a sodium level of 123 and a potassium level of 2.4. She is admitted for IV fluids and rehydration and is on IV Ertanepenem. Her repeat Covid screening is positive. She denies any respiratory symptoms or fevers. The patient is reporting 8 watery stools per day with nausea and vomiting. She denies any fever but she has abdominal pain across her lower abdomen and is exquisitely tender to palpation. The patient denies any family history of colon cancer, inflammatory bowel disease or celiac disease. She denies any history of the symptoms prior to this. We are awaiting a repeat stool panel and a fecal calprotectin and lactoferrin. [facility] History Medical History: Denies:: Diabetes Mellitus Type 1, Diabetes Mellitus Type 2, Hyperlipidemia, Hypertension *Have you ever received a pneumonia vaccine?: No *Have you received a flu vaccine this season?: Yes Laterality Cases: Bilateral: Other Other Surgeries: Yes: , Tubal Ligation - *Social History Last grade of school completed: Some college Smoking Status: Never smoker Tobacco Type: cigarettes # Packs/Day (cigarettes): 1 Alcohol Intake: never *Occupational Status:: employed Housing: house Household Members: spouse, children *Travel in the last 8 weeks: None Family Hx:: Cancer, Alcoholism Review of Systems - Constitutional Reports fatigue, Reports lack of energy, Reports malaise, Reports weakness, Denies fever(s) - Eyes Denies blurry vision, Denies pain - ENT Reports dry mouth, Denies dizziness, Denies difficulty swallowing, Denies hoarseness, Denies sore throat - *Cardiovascular Reports foot swelling, Denies chest pain, Denies shortness of breath Comments: Complains of bilateral feet swelling - *Respiratory Denies chest congestion, Denies cough, Denies shortness of breath, Denies stridor, Denies wheezing - *Gastrointestinal Reports abdominal pain, Reports change in bowel habits, Reports change in stools, Reports cramping, Reports loose stools, Reports bright, red blood in stools, Reports nausea, Reports vomiting, Denies belching, Denies bloating, Denies coffee ground vomit, Denies constipation, Denies difficulty swallowing, Denies black, tarry stools - *Genitourinary Denies abnormal periods, Denies abnormal vaginal bleeding - *Musculoskeletal Repor
--- NOTE | 2020-06-17 17:37 | HMH.HP ---
*Admission Date: 06/17/20 *Chief complaint: Diarrhea/fatigue/abdominal pain *History of present illness: This is a 25-year-old female patient who has been seen in the ER and the hospital multiple times over the past month with symptoms of nausea, vomiting, diarrhea and bloody stools. She came to the ER initially and was diagnosed with colitis. She initially improved with IV fluids and was discharged home. She did not improve at home, came back through the ER and was admitted with nausea, vomiting, abdominal pain and persistent colitis 05/23/2020. Stool panel was negative at that time she did have an elevated white blood cell count of 14,000. CT scan on 05/23/2020 showed pancolitis with mild stranding of the pericolic fat. She was treated with IV Levaquin and Flagyl and reports that she was discharged home with oral Levaquin and Flagyl. She reports that she was only able to take about 3 days of the medication at home because she had such severe nausea and vomiting she could not keep it down. The patient reports that after arriving home she began to have a loss of taste and smell and was diagnosed with Covid-19 two weeks ago. Since then she has not had resolution of her symptoms. She has developed significantly more fatigue. She has been unable to hydrate herself appropriately. Her mucous membranes are dry and she appears acutely ill. She is having rectal bleeding, bright red blood per rectum every day for over a month. She came back to the ER and is now admitted again. Her hemoglobin dropped from 12.8 to 9.9 since initial hospitalization 1 month ago. She is pale and reports fatigue and tiredness. She is hyponatremic and hypokalemic with a sodium level of 123 and a potassium level of 2.4. She is admitted for IV fluids and rehydration and is on IV Ertanepenem. Her repeat Covid screening is positive. She denies any respiratory symptoms or fevers. The patient is reporting 8 watery stools per day with nausea and vomiting. She denies any fever but she has abdominal pain across her lower abdomen and is exquisitely tender to palpation. The patient denies any family history of colon cancer, inflammatory bowel disease or celiac disease. She denies any history of the symptoms prior to this. We are awaiting a repeat stool panel and a fecal calprotectin and lactoferrin. Above note per GI consultation, agree with history. Patient normally sees Dr. Winters, she saw him after her admission last month and antibiotics were stopped. She feels somewhat better after 1 L of IV fluid. Continues to feel weak, abdominal cramping is somewhat improved [facility] History I have reviewed the patient's past medical history: Yes Medical History: Denies:: Diabetes Mellitus Type 1, Diabetes Mellitus Type 2, Hyperlipidemia, Hypertension *Have you ever received a pneumonia vaccine?: No *Have you received a flu vaccine this season?: Yes Laterality Cases: Bilateral: Other Other Surgeries: Yes: , Tubal Ligation - *Social History Last grade of school completed: Some college Smoking Status: Never smoker Tobacco Type: cigarettes # Packs/Day (cigarettes): 1 Alcohol Intake: never *Occupational Status:: employed Housing: house Household Members: spouse, children *Travel in the last 8 weeks: None Family Hx:: Cancer, Alcoholism Review of Systems - Review of Systems Review of systems:: pertinent systems reviewed and negative unless documented below - *Neurologic Reports weakness, Denies abnormal speech, Denies behavioral changes, Denies dizziness, Denies numbness, Denies fainting, Denies tingling Meds Home Medications Medication Instructions Recorded Confirmed Type ondansetron HCL [Ondansetron 4mg 4 mg PO Q6HP PRN 06/17/20 06/17/20 History tab*] Allergies Allergy/AdvReac Type Severity Reaction Status Date / Time No Known Allergies Allergy Verified 05/21/20 11:35 Exam Vital signs and Labs for Last 24 Hours: Temp Pulse Resp BP Pulse Ox 97
[2020-06-17 19:11] LABS: Iron 25 ug/dL (37-170)
[2020-06-17 19:18] LABS: C-Reactive Protein 20.3 mg/L (0-4)
[2020-06-17 19:21] LABS: Total Iron Binding Capacity 142 ug/dL (265-497)
[2020-06-17 19:47] LABS: Ferritin 19.7 ng/ml (6.24-137)
[2020-06-17 23:23] LABS: Erythrocyte Sedimentation Rate 17 mm/hr (0-20)
[2020-06-18] VITALS (18 sets, daily range): BP systolic 92–120; BP diastolic 52–79; PULSE 86–112; RESP 11–18; TEMP 36.1–36.9; O2SAT 98–100; BMI 24.9
--- NOTE | 2020-06-18 04:04 | PC.NURSE ---
Pt has been pleasant and cooperative this shift. A&O X4. Pt has complained of pain X1 and received Morphine per MAR with favorable results. Pt is on room air with sats. >90%. Lungs CTA. No edema noted. Skin is C/D/I. No N/V/D this shift. Pt ambulates independently to/from the bathroom and throughout the room. 20 G peripheral IV in the LT AC is patent and SL. 20 G peripheral IV in the RT AC is patent and infusing LR @ 100 ML/HR. VSS. Call light within reach. Will continue to monitor.
[2020-06-18 05:28] LABS: Basophils % 0.3 % (0.1-2.0); Eosinophils % 0.2 % (0.1-12.0); Hematocrit 28.3 % (37.0-47.0); Lymphocytes # 1.2 K/mm3 (0.7-4.5); Lymphocytes % 13.4 % (10-50); Mean Corpuscular HGB Conc 30.9 g/dL (31.8-35.4); Mean Corpuscular Hemoglobin 22.1 pg (27.0-31.2); Mean Corpuscular Volume 71.7 fl (81-99); Mean Platelet Volume 8.1 fl (7.4-10.4); Monocytes # 0.3 K/mm3 (0.1-1.0); Monocytes % 3.1 % (1.7-9.3); Neutrophils # 7.2 K/mm3 (1.8-7.8); Neutrophils % 83.1 % (37.0-80.0); Platelet Count 483 K/mm3 (142-424); Red Blood Count 3.95 M/mm3 (4.20-5.40); Red Cell Distribution Width 17.9 % (11.5-17.5); White Blood Count 8.7 K/mm3 (4.8-10.8)
[2020-06-18 05:35] LABS: Anion Gap 7.4 mEq/L (5-15); Blood Urea Nitrogen 9 mg/dl (7-17); Carbon Dioxide 29 mmol/L (22.0-30.0); Chloride 93 mmol/L (98-107); Creatinine Clearance Estimated 160 mL/min (50-200); Estimated Glomerular Filt Rate 148 ml/min (>60); GFR (African American) 179 ML/MIN (>60); Glucose 98 mg/dl (74-100); Magnesium 1.5 mg/dl (1.6-2.3); Sodium 127 mmol/L (136-145)
[2020-06-18 05:36] LABS: Hemoglobin 8.6 g/dL (12.2-16.2)
[2020-06-18 05:38] LABS: Calcium 6.3 mg/dl (8.4-10.2); Potassium 2.4 mmoL/L (3.5-5.1)
[2020-06-18 05:54] LABS: Procalcitonin 0.156 ng/mL (0.0-2.0)
--- NOTE | 2020-06-18 06:58 | HMH.ACPN2 ---
Internal Medicine - PN: Subj *Date: 06/18/20 *Time: 13:53 Interval history: Has continued to have significant abdominal pain overnight since admission. Still having bloody bowel movements. Denies chest pain or shortness of breath. No cough. Tolerating small amounts of clear liquid diet. Still complains of significant fatigue and weakness. reviewed labs this morning, worsening anemia, electrolyte abnormalities not significantly better. Exam Vital signs and Labs for Last 24 Hours: Temp Pulse Resp BP Pulse Ox 98.2 F 98 H 11 L 95/70 L 100 06/18/20 04:00 06/18/20 04:00 06/18/20 04:00 06/18/20 04:00 06/18/20 04:00 Laboratory Results - last 24 hr 06/17/20 09:50: WBC 10.5, RBC 4.43, Hgb 9.9 L, Hct 31.3 L, MCV 70.7 L, MCH 22.3 L, MCHC 31.5 L, RDW 17.5, Plt Count 453 H, MPV 7.2 L, Neut % (Auto) 85.7 H, Lymph % (Auto) 10.9, [place] % (Auto) 2.6, Eos % (Auto) 0.3, Baso % (Auto) 0.4, Neut # (Auto) 9.0 H, Lymph # (Auto) 1.2, [place] # (Auto) 0.3, Eos # (Auto) 0.0, Baso # (Auto) 0.0, Total Counted 100, Neutrophils % (Manual) 86 H, Lymphocytes % (Manual) 12, Monocytes % (Manual) 2, Platelet Estimate Normal, RBC Morphology Normal 06/17/20 09:50: Sodium 123 L, Potassium 2.4 L*, Chloride 84 L, Carbon Dioxide 36 H, Anion Gap 5.4, BUN 10, Creatinine 0.50 L, Estimated Creat Clear 163, Estimated GFR 148, Est GFR ( Amer) 179, Glucose 118 H, Calcium 6.9 L, Total Bilirubin 0.3, AST 21, ALT 10 L, Alkaline Phosphatase 139 H, Total Protein 5.2 L D, Albumin 1.9 L, Globulin 3.3 H, Albumin/Globulin Ratio 0.6 L 06/17/20 09:50: Iron 25 L, TIBC 142 L, Iron Saturation 17.21338, Ferritin 19.7, C-Reactive Protein 20.3 H 06/17/20 10:18: Lactate 1.2 06/17/20 15:45: Urine Color Yellow, Urine Appearance Clear, Urine pH 6.5, Ur Specific [place] 1.015, Urine Protein Trace, Urine Glucose (UA) Negative, Urine Ketones 2+, Urine Blood Negative, Urine Nitrate Negative, Urine Bilirubin Negative, Urine Urobilinogen 0.2, Ur Leukocyte Esterase Negative, Urine WBC 20-50, Urine Bacteria 1+, Urine Mucus 2+ 06/17/20 15:45: Urine HCG, Qual Negative 06/17/20 22:55: ESR 17 06/18/20 05:00: WBC 8.7, RBC 3.95 L, Hgb 8.6 L D, Hct 28.3 L, MCV 71.7 L, MCH 22.1 L, MCHC 30.9 L, RDW 17.9 H, Plt Count 483 H, MPV 8.1, Neut % (Auto) 83.1 H, Lymph % (Auto) 13.4, [place] % (Auto) 3.1, Eos % (Auto) 0.2, Baso % (Auto) 0.3, Neut # (Auto) 7.2, Lymph # (Auto) 1.2, [place] # (Auto) 0.3, Eos # (Auto) 0.0, Baso # (Auto) 0.0 06/18/20 05:00: Sodium 127 L, Potassium 2.4 L*, Chloride 93 L, Carbon Dioxide 29, Anion Gap 7.4, BUN 9, Creatinine 0.50 L, Estimated Creat Clear 160, Estimated GFR 148, Est GFR ( Amer) 179, Glucose 98, Calcium 6.3 L, Phosphorus 3.0, Magnesium 1.5 L 06/18/20 05:00: Procalcitonin 0.156 I & O for Last 24 hours: Intake & Output 06/15/20 06/16/20 06/17/20 06/18/20 23:59 23:59 23:59 23:59 Intake Total 240 / 240 1421 / 1421 Balance 240 / 240 1421 / 1421 Weight 60.056 kg 59.931 kg Microbiology Reports for the Last 24 Hours: Microbiology 06/17/20 11:48 Nasopharyngeal Coronavirus COVID-19 PCR - Final - Constitutional mild distress Comments: fatigued - *Routine HEENT Exam Head: Present: normocephalic Eye: Present: EOMI, PERRL ENT: Present: mucous membranes moist - *Routine Neck Exam Present: supple. Absent: lymphadenopathy - *Routine Respiratory Exam Present: CTA bilaterally - *Routine Cardiovascular Exam Present: RRR - *Routine Abdominal Exam Present: soft, normoactive bowel sounds, tenderness (diffuse, no rabound or guarding) - *Routine Extremities Exam Present: pallor. Absent: cyanosis, clubbing, edema - *Routine Skin Exam Present: pallor, warm. Absent: petechiae, rash - *Routine Neurological Exam Present: alert, oriented X3 Assessment and Plan (1) Colitis Status: Acute Category: Medical Code(s): K52.9 - Noninfective gastroenteritis and colitis, unspecified (2) Anemia Status: Acute Qualifiers: Anemia type: unsp
--- NOTE | 2020-06-18 13:53 | PC.NURSE ---
MD KATZ AWARE OF PT C/O DIZZINESS AFTER 20MIN OF PRBC INFUSION, RATE TURNED DOWN TO 125ML/HR. STATED HE WILL PUT ORDERS IN.
--- NOTE | 2020-06-18 15:31 | PC.NURSE ---
lab stated pt diarrhea panel kept failing, and a we would need to recollect a new sample.
--- NOTE | 2020-06-18 15:43 | PC.NURSE ---
[id number] was verified by Samantha Frausto RN and myself. unit began at 1315 and ended at 1540
[2020-06-18 18:09] LABS: Hematocrit 30.1 % (37.0-47.0); Hemoglobin 9.4 g/dL (12.2-16.2)
[2020-06-18 19:20] LABS: Chloride 99 mmol/L (98-107); Sodium 126 mmol/L (136-145)
[2020-06-18 19:21] LABS: Potassium 4.2 mmoL/L (3.5-5.1)
[2020-06-18 19:24] LABS: Anion Gap 8.2 mEq/L (5-15); Blood Urea Nitrogen 10 mg/dl (7-17); Carbon Dioxide 23 mmol/L (22.0-30.0); Creatinine Clearance Estimated 266 mL/min (50-200); Estimated Glomerular Filt Rate 267 ml/min (>60); GFR (African American) 323 ML/MIN (>60); Glucose 126 mg/dl (74-100)
--- NOTE | 2020-06-18 19:35 | PC.NURSE ---
PT HAS DONE WELL TODAY. NO MORE C/O DIZZINESS SINCE PREVIOUS NOTE. HAS C/O X2 TODAY, PRN PAIN MEDICATION GIVEN WITH ADEQUATE RELIEF. PT HAS AMBULATED TO BATHROOM WITH ASSISTANCE OF THE IV POLE. PT REPORTS MINIMAL BMS THIS SHIFT, WAS ABLE TO VISUALLY SEE ONE BM AND IT WAS SMALL WITH NO BLOOD NOTED. VSS. WILL CONT. TO MONITOR.
[2020-06-18 19:43] LABS: Calcium 6.6 mg/dl (8.4-10.2)
[2020-06-18 23:27] LABS: Adenovirus F 40/41, stool Not Detected (NotDetected); Astrovirus Not Detected (NotDetected); Campylobacter Not Detected (NotDetected); Clostridium Difficile A/B, PCR Not Detected (NotDetected); Cryptosporidium Not Detected (NotDetected); Cyclospora Cayetanesis Not Detected (NotDetected); Entamoeba histolytica Not Detected (NotDetected); Enteroaggregative E coli Not Detected (NotDetected); Enteropathogenic E coli Not Detected (NotDetected); Enterotoxigenic E coli Not Detected (NotDetected); Giardia lamblia Not Detected (NotDetected); Norovirus Not Detected (NotDetected); Plesimonas Shigalloides, PCR Not Detected (NotDetected); Rotavirus A Not Detected (NotDetected); Salmonella, PCR Not Detected (NotDetected); Sapovirus Not Detected (NotDetected); Shiga-like toxin E coli Not Detected (NotDetected); Shigella Enterovasive E coli Not Detected (NotDetected); Vibrio Cholerae Not Detected (NotDetected); Vibrio, PCR Not Detected (NotDetected); Yersinia Entercolitica, PCR Not Detected (NotDetected)
[2020-06-19] VITALS (16 sets, daily range): BP systolic 87–122; BP diastolic 59–86; PULSE 80–101; RESP 14–18; TEMP 36.5–36.9; O2SAT 98–100; BMI 24.9; BMI 25.0
--- NOTE | 2020-06-19 04:17 | PC.NURSE ---
Pt has been pleasant and cooperative this shift. A&O X4. Pt has complained of pain X1 and received Morphine per MAR with favorable results. Pt is on room air with sats. >90%. Lungs CTA. No edema noted. Skin is C/D/I. Pt reports 2 episodes of loose stool thus far this shift. Stool specimen obtained. No nausea or vomiting. Pt ambulates independently to/from the bathroom and throughout the room. 20 G peripheral IV in the LT AC is patent and SL. 20 G peripheral IV in the RT AC is patent and infusing LR @ 100 ML/HR. VSS. Call light within reach. Will continue to monitor.
[2020-06-19 06:59] LABS: Lymphocytes # 0.8 K/mm3 (0.7-4.5); Monocytes # 0.2 K/mm3 (0.1-1.0); Neutrophils # 3.8 K/mm3 (1.8-7.8); Red Cell Distribution Width 18.6 % (11.5-17.5); White Blood Count 4.9 K/mm3 (4.8-10.8)
[2020-06-19 07:05] LABS: Basophils % 0.3 % (0.1-2.0); Eosinophils % 0.2 % (0.1-12.0); Hematocrit 26.5 % (37.0-47.0); Lymphocytes % 16.5 % (10-50); Mean Corpuscular Hemoglobin 23.4 pg (27.0-31.2); Mean Corpuscular Volume 75.4 fl (81-99); Mean Platelet Volume 7.9 fl (7.4-10.4); Monocytes % 4.5 % (1.7-9.3); Neutrophils % 78.5 % (37.0-80.0); Platelet Count 313 K/mm3 (142-424); Red Blood Count 3.51 M/mm3 (4.20-5.40)
[2020-06-19 07:15] LABS: Alanine Aminotransferase 8 U/L (12-78); Albumin Level 1.4 g/dl (3.5-5.0); Albumin/Globulin Ratio 0.5 (1.1-1.8); Alkaline Phosphatase 101 U/L (38-126); Anion Gap 2.4 mEq/L (5-15); Aspartate Amino Transferase 21 U/L (14-36); Bilirubin,Total 0.2 mg/dl (0.2-1.3); Blood Urea Nitrogen 9 mg/dl (7-17); Carbon Dioxide 31 mmol/L (22.0-30.0); Chloride 95 mmol/L (98-107); Creatinine Clearance Estimated 200 mL/min (50-200); Estimated Glomerular Filt Rate 191 ml/min (>60); GFR (African American) 232 ML/MIN (>60); Globulin 2.7 g/dL (1.3-3.2); Glucose 113 mg/dl (74-100); Magnesium 1.9 mg/dl (1.6-2.3); Potassium 3.4 mmoL/L (3.5-5.1); Sodium 125 mmol/L (136-145); Total Protein,Serum 4.1 g/dl (6.3-8.2)
[2020-06-19 07:19] LABS: Hemoglobin 8.2 g/dL (12.2-16.2)
[2020-06-19 07:26] LABS: Calcium 6.8 mg/dl (8.4-10.2)
--- NOTE | 2020-06-19 07:47 | HMH.ACPN2 ---
Internal Medicine - PN: [place] *Date: 06/19/20 *Time: 07:47 Interval history: Overall patient states she feels better, tolerating clear liquids well. Notes that she has a little bit more energy. Notes that she has tolerated sitting up and using the bedside commode, has had a couple of stools that look reddish. Exam Vital signs and Labs for Last 24 Hours: Temp Pulse Resp BP Pulse Ox 98.1 F 80 14 87/60 L 98 06/19/20 04:00 06/19/20 04:00 06/19/20 04:00 06/19/20 04:00 06/19/20 04:00 Laboratory Results - last 24 hr 06/18/20 08:55: Blood Type B Negative, Antibody Screen Negative, Crossmatch (AHG) See Detail 06/18/20 10:54: Blood Type Confirm B Negative 06/18/20 17:50: Hgb 9.4 L, Hct 30.1 L 06/18/20 17:50: Sodium 126 L, Potassium 4.2 D, Chloride 99, Carbon Dioxide 23 D, Anion Gap 8.2, BUN 10, Creatinine 0.30 L D, Estimated Creat Clear 266, Estimated GFR 267, Est GFR ( Amer) 323 D, Glucose 126 H D, Calcium 6.6 L, Magnesium 2.0 D 06/18/20 22:15: Stl Aeromonas (PCR) Not detected, Stl C. cayetanensis PCR Not detected, Stool Rotavirus (PCR) Not detected, Stl Adenov F 40/41 PCR Not detected, Stool Astrovirus (PCR) Not detected, Stool Campylobacter PCR Not detected, Stl C.difficile Tox PCR Not detected, Stool Cryptosporidium PCR Not detected, Stl E.coli Shiga Tox PCR Not detected, Stool E coli O157 PCR Not detected, Stl Enterotoxigenic E PCR Not detected, Stool EPEC (PCR) Not detected, Stool EAEC (PCR) Not detected, Stl E. histolytica PCR Not detected, Stool Giardia Lamblia PCR Not detected, Stool Salmonella PCR Not detected, Stool Sapovirus (PCR) Not detected, Stl P. shigelloides PCR Not detected, Stl Shigella/EIEC PCR Not detected, St Y.enterocolitica PCR Not detected, Stool Vibrio (PCR) Not detected, Stl Vibrio cholerae PCR Not detected, Stl Norovirus GI/GII PCR Not detected 06/19/20 06:35: WBC 4.9 D, RBC 3.51 L, Hgb 8.2 L D, Hct 26.5 L, MCV 75.4 L, MCH 23.4 L, MCHC 31.0 L, RDW 18.6 H, Plt Count 313 D, MPV 7.9, Neut % (Auto) 78.5, Lymph % (Auto) 16.5, [place] % (Auto) 4.5, Eos % (Auto) 0.2, Baso % (Auto) 0.3, Neut # (Auto) 3.8, Lymph # (Auto) 0.8, [place] # (Auto) 0.2, Eos # (Auto) 0.0, Baso # (Auto) 0.0 06/19/20 06:35: Sodium 125 L, Potassium 3.4 L, Chloride 95 L, Carbon Dioxide 31 H D, Anion Gap 2.4 L, BUN 9, Creatinine 0.40 L D, Estimated Creat Clear 200, Estimated GFR 191, Est GFR ( Amer) 232 D, Glucose 113 H, Calcium 6.8 L, Magnesium 1.9, Total Bilirubin 0.2, AST 21, ALT 8 L, Alkaline Phosphatase 101, Total Protein 4.1 L, Albumin 1.4 L, Globulin 2.7, Albumin/Globulin Ratio 0.5 L I & O for Last 24 hours: Intake & Output 06/16/20 06/17/20 06/18/20 06/19/20 11:59 11:59 11:59 11:59 Intake Total 1781 / 1781 1608 / 1608 Output Total Balance 1780 / 1780 1608 / 1608 Weight 135 lb 132 lb 2 oz 132 lb Microbiology Reports for the Last 24 Hours: Microbiology 06/17/20 15:45 Urine,Clean Catch Urine Culture - Preliminary NO GROWTH AFTER 24 HOURS Narrative: Alert, pleasant, talkative. Less pallor today. Lungs clear, heart rate regular. Positive bowel sounds. Abdomen slightly tender diffusely but no rebound or guarding. Neurologically intact, no rash. ENT exam clear. Assessment and Plan (1) Colitis Status: Acute Category: Medical Code(s): K52.9 - Noninfective gastroenteritis and colitis, unspecified (2) Anemia Status: Acute Qualifiers: Anemia type: unspecified type Qualified Code(s): D64.9 - Anemia, unspecified Category: Medical Code(s): D64.9 - Anemia, unspecified (3) COVID-19 virus infection Status: Acute Category: Medical Code(s): U07.1 - COVID-19 (4) Hypokalemia Status: Acute Category: Medical Code(s): E87.6 - Hypokalemia (5) Hyponatremia Status: Acute Category: Medical Code(s): E87.1 - Hypo-osmolality and hyponatremia (6) Hypomagnesemia Status: Acute Category: Medical Code(s): E83.42 - Hypomagn
--- NOTE | 2020-06-19 17:38 | PC.NURSE ---
Alert and oriented x4. Lungs clear, bowel sounds active x4. She remains on RA with O2 sats in the upper 90's. Abdomen mildly tender to palpation. She has requested morphine x2 this shift for abdominal pain. Relief noted on reassessment. She has ambulated to the bathroom independently and with assist x1, depending on how well she is feeling. She has had a few loose stools with some redness noted to them. Appetite OK, tolerating her full liquid diet with no complaints. She received 1 unit of PRBC's this shift. Afebrile. Refused teds. Will continue to monitor.
--- NOTE | 2020-06-19 18:19 | PC.NURSE ---
Notified María in lab that labs are ready to be picked up
[2020-06-19 18:28] LABS: Hematocrit 30.7 % (37.0-47.0)
[2020-06-19 18:53] LABS: Hemoglobin 9.9 g/dL (12.2-16.2)
[2020-06-20] VITALS: BP 117/75; PULSE 94; RESP 16; TEMP 36.6; O2SAT 98
[2020-06-20 04:00] VITALS: BP 112/71; PULSE 77; RESP 14; TEMP 36.6; O2SAT 96
--- NOTE | 2020-06-20 04:16 | PC.NURSE ---
Pt has been pleasant and cooperative this shift. A&O X4. Pt has complained of pain X2 and received Morphine per MAR with favorable results. Pt is on room air with sats. >90%. Lungs CTA. Pt is noted to be slightly edematous in her extremities. IVF currently on stand-by per pt request. Skin is C/D/I. Pt reports 2 episodes of loose stool thus far this shift. Pt ambulates independently to/from the bathroom and throughout the room. 20 G peripheral IV's to bilateral AC's are patent and SL. VSS. Call light within reach. Will continue to monitor.
[2020-06-20 05:00] VITALS: BMI 26.1
[2020-06-20 06:55] LABS: Basophils % 0.4 % (0.1-2.0); Eosinophils % 0.1 % (0.1-12.0); Lymphocytes # 1.8 K/mm3 (0.7-4.5); Lymphocytes % 19.2 % (10-50); Mean Corpuscular HGB Conc 30.8 g/dL (31.8-35.4); Mean Corpuscular Hemoglobin 23.9 pg (27.0-31.2); Mean Corpuscular Volume 77.5 fl (81-99); Mean Platelet Volume 8.6 fl (7.4-10.4); Monocytes # 0.3 K/mm3 (0.1-1.0); Monocytes % 2.7 % (1.7-9.3); Neutrophils # 7.2 K/mm3 (1.8-7.8); Neutrophils % 77.7 % (37.0-80.0); Platelet Count 432 K/mm3 (142-424); Red Blood Count 4.78 M/mm3 (4.20-5.40); Red Cell Distribution Width 18.5 % (11.5-17.5); White Blood Count 9.2 K/mm3 (4.8-10.8)
[2020-06-20 07:10] LABS: Alanine Aminotransferase 13 U/L (12-78); Albumin Level 1.9 g/dl (3.5-5.0); Albumin/Globulin Ratio 0.6 (1.1-1.8); Alkaline Phosphatase 138 U/L (38-126); Anion Gap 8.7 mEq/L (5-15); Aspartate Amino Transferase 31 U/L (14-36); Bilirubin,Total 0.2 mg/dl (0.2-1.3); Blood Urea Nitrogen 9 mg/dl (7-17); Calcium 7.4 mg/dl (8.4-10.2); Carbon Dioxide 27 mmol/L (22.0-30.0); Chloride 97 mmol/L (98-107); Creatinine Clearance Estimated 209 mL/min (50-200); Estimated Glomerular Filt Rate 191 ml/min (>60); GFR (African American) 232 ML/MIN (>60); Globulin 3.4 g/dL (1.3-3.2); Glucose 97 mg/dl (74-100); Potassium 3.7 mmoL/L (3.5-5.1); Sodium 129 mmol/L (136-145); Total Protein,Serum 5.3 g/dl (6.3-8.2)
[2020-06-20 07:42] LABS: Hemoglobin 11.5 g/dL (12.2-16.2)
--- NOTE | 2020-06-20 07:59 | HMH.ACPN2 ---
Internal Medicine - PN: Subj *Date: 06/20/20 *Time: 07:59 Interval history: Patient did well overnight, had a couple of more bloody stool episodes but has had no vomiting and is tolerated full liquids fairly well. Exam Vital signs and Labs for Last 24 Hours: Temp Pulse Resp BP Pulse Ox 97.8 F 77 14 112/71 96 06/20/20 04:00 06/20/20 04:00 06/20/20 04:00 06/20/20 04:00 06/20/20 04:00 Laboratory Results - last 24 hr 06/18/20 08:55: Blood Type B Negative, Antibody Screen Negative, Crossmatch (AHG) See Detail 06/19/20 18:20: Hgb 9.9 L D, Hct 30.7 L 06/20/20 05:30: WBC 9.2 D, RBC 4.78 D, Hgb 11.5 L D, Hct 37.0, MCV 77.5 L, MCH 23.9 L, MCHC 30.8 L, RDW 18.5 H, Plt Count 432 H D, MPV 8.6, Neut % (Auto) 77.7, Lymph % (Auto) 19.2, [place] % (Auto) 2.7, Eos % (Auto) 0.1, Baso % (Auto) 0.4, Neut # (Auto) 7.2, Lymph # (Auto) 1.8, [place] # (Auto) 0.3, Eos # (Auto) 0.0, Baso # (Auto) 0.0 06/20/20 05:30: Sodium 129 L, Potassium 3.7, Chloride 97 L, Carbon Dioxide 27, Anion Gap 8.7, BUN 9, Creatinine 0.40 L, Estimated Creat Clear 209, Estimated GFR 191, Est GFR ( Amer) 232, Glucose 97, Calcium 7.4 L, Total Bilirubin 0.2, AST 31 D, ALT 13 D, Alkaline Phosphatase 138 H, Total Protein 5.3 L D, Albumin 1.9 L D, Globulin 3.4 H, Albumin/Globulin Ratio 0.6 L I & O for Last 24 hours: Intake & Output 06/17/20 06/18/20 06/19/20 06/20/20 11:59 11:59 11:59 11:59 Intake Total 1781 / 1781 2568 / 2568 2427 / 2427 Output Total 500 / 500 Balance 1780 / 1780 2568 / 2568 1927 / 1927 Weight 135 lb 132 lb 2 oz 132 lb 138 lb 3.677 oz Microbiology Reports for the Last 24 Hours: Microbiology 06/17/20 15:45 Urine,Clean Catch Urine Culture - Final NO GROWTH AFTER 48 HOURS 06/17/20 12:07 Blood Blood Culture - Preliminary NO GROWTH AFTER 48 HOURS 06/17/20 12:07 Blood Blood Culture - Preliminary NO GROWTH AFTER 48 HOURS Narrative: Patient is less pale, color to her cheeks, looks like she feels better, sitting up in the bed. Lungs are clear, heart rate regular, abdomen is rubber press tender in both lower quadrants but soft and normal bowel sounds. Minimal hand and feet edema. No skin rash otherwise. Neurologically intact, ENT exam clear. Assessment and Plan (1) Colitis Status: Acute Category: Medical Code(s): K52.9 - Noninfective gastroenteritis and colitis, unspecified (2) Anemia Status: Acute Qualifiers: Anemia type: unspecified type Qualified Code(s): D64.9 - Anemia, unspecified Category: Medical Code(s): D64.9 - Anemia, unspecified (3) COVID-19 virus infection Status: Acute Category: Medical Code(s): U07.1 - COVID-19 (4) Hypokalemia Status: Acute Category: Medical Code(s): E87.6 - Hypokalemia (5) Hyponatremia Status: Acute Category: Medical Code(s): E87.1 - Hypo-osmolality and hyponatremia (6) Hypomagnesemia Status: Acute Category: Medical Code(s): E83.42 - Hypomagnesemia - Assessment and plan all Dx Assessment and Plan for all problems:: Electrolytes are improving, replace calcium again today intravenously. Check labs tomorrow. Anemia secondary to blood loss has improved after the second unit of transfusion with a hemoglobin of 11.5 today. I have saline locked her fluids given her minimal evidence of edema. Given her ongoing bloody stools we will have GI reevaluate tomorrow for endoscopy for biopsy purposes. Overall improving on fluids and steroids. Hopefully home tomorrow after endoscopy.
[2020-06-20 08:00] VITALS: BP 101/62; PULSE 97; RESP 20; TEMP 37; O2SAT 100
--- NOTE | 2020-06-20 08:55 | PC.NURSE ---
Notified Dr Wayne office that Dr Alegria is requesting a scope on patient for tomorrow. Dr Wayne office stated they would get it set up and notify pre-op.
[2020-06-20 12:00] VITALS: BP 112/77; PULSE 94; RESP 18; TEMP 36.9; O2SAT 99
[2020-06-20 16:00] VITALS: BP 102/71; PULSE 90; RESP 16; TEMP 36.6; O2SAT 100
--- NOTE | 2020-06-20 17:01 | PC.NURSE ---
Pt has slept off and on the majority of the shift. She was given morphine x1 for abd pain with her reporting relief on reassessment. Zofran given x1 for nausea with relief noted on reassessment. Lungs are clear, bowel sounds active x4. She is tolerating her clear liquid diet. She has ambulated to the bathroom independently with no complaints. +1 edema noted to extremities. IV to lac is sl per MD. She is to be NPO at midnight except for moviprep for colonoscopy tomorrow. Pt verbalized understanding. Will continue to monitor.
[2020-06-20 20:00] VITALS: BP 106/74; PULSE 84; RESP 16; TEMP 36.7; O2SAT 99
[2020-06-21] VITALS (20 sets, daily range): BP systolic 96–123; BP diastolic 54–87; PULSE 80–106; RESP 14–18; TEMP 36.5–36.7; O2SAT 98–100; BMI 27.0; BMI 26.9
--- NOTE | 2020-06-21 00:53 | PC.NURSE ---
Pt is currently resting in bed. Was up to side of bed for most of evening drinking moviprep and other clear liquids. She is currently NPO. Will receive additional moviprep at 0500. Stool is currently loose and brown. Pt states she will take bath between [id number]. Consent is signed and on chart for procedure. VSS. Pt declined any medication for nausea or pain. Call light within reach. Will continue to monitor.
[2020-06-21 05:27] LABS: Calprotectin, Fecal 3840 ug/g (0-120)
[2020-06-21 05:27] LABS: Saccharomyces cerevisiae, IgA <20.0 Units (0.0-24.9); Saccharomyces cerevisiae, IgG <20.0 Units (0.0-24.9)
[2020-06-21 06:51] LABS: Basophils % 0.2 % (0.1-2.0); Hemoglobin 10.8 g/dL (12.2-16.2); Lymphocytes # 1.5 K/mm3 (0.7-4.5); Lymphocytes % 25.8 % (10-50); Mean Corpuscular HGB Conc 30.9 g/dL (31.8-35.4); Mean Corpuscular Hemoglobin 23.8 pg (27.0-31.2); Mean Corpuscular Volume 77.2 fl (81-99); Mean Platelet Volume 7.6 fl (7.4-10.4); Monocytes # 0.2 K/mm3 (0.1-1.0); Neutrophils # 4.2 K/mm3 (1.8-7.8); Platelet Count 395 K/mm3 (142-424); Red Blood Count 4.54 M/mm3 (4.20-5.40); Red Cell Distribution Width 18.7 % (11.5-17.5); White Blood Count 5.9 K/mm3 (4.8-10.8)
--- NOTE | 2020-06-21 06:53 | HMH.DCSUM ---
General - General Admission date:: 06/17/20 Discharge date: 06/21/20 HPI HPI: This is a 25-year-old female patient who has been seen in the ER and the hospital multiple times over the past month with symptoms of nausea, vomiting, diarrhea and bloody stools. She came to the ER initially and was diagnosed with colitis. She initially improved with IV fluids and was discharged home. She did not improve at home, came back through the ER and was admitted with nausea, vomiting, abdominal pain and persistent colitis 05/23/2020. Stool panel was negative at that time she did have an elevated white blood cell count of 14,000. CT scan on 05/23/2020 showed pancolitis with mild stranding of the pericolic fat. She was treated with IV Levaquin and Flagyl and reports that she was discharged home with oral Levaquin and Flagyl. She reports that she was only able to take about 3 days of the medication at home because she had such severe nausea and vomiting she could not keep it down. The patient reports that after arriving home she began to have a loss of taste and smell and was diagnosed with Covid-19 two weeks ago. Since then she has not had resolution of her symptoms. She has developed significantly more fatigue. She has been unable to hydrate herself appropriately. Her mucous membranes are dry and she appears acutely ill. She is having rectal bleeding, bright red blood per rectum every day for over a month. She came back to the ER and is now admitted again. Her hemoglobin dropped from 12.8 to 9.9 since initial hospitalization 1 month ago. She is pale and reports fatigue and tiredness. She is hyponatremic and hypokalemic with a sodium level of 123 and a potassium level of 2.4. She is admitted for IV fluids and rehydration and is on IV Ertanepenem. Her repeat Covid screening is positive. She denies any respiratory symptoms or fevers. The patient is reporting 8 watery stools per day with nausea and vomiting. She denies any fever but she has abdominal pain across her lower abdomen and is exquisitely tender to palpation. The patient denies any family history of colon cancer, inflammatory bowel disease or celiac disease. She denies any history of the symptoms prior to this. We are awaiting a repeat stool panel and a fecal calprotectin and lactoferrin. Above note per GI consultation, agree with history. Patient normally sees Dr. Winters, she saw him after her admission last month and antibiotics were stopped. She feels somewhat better after 1 L of IV fluid. Continues to feel weak, abdominal cramping is somewhat improved Objective Vital signs: Temp Pulse Resp BP Pulse Ox 97.7 F 86 14 118/73 100 06/21/20 04:00 06/21/20 04:00 06/21/20 04:00 06/21/20 04:00 06/21/20 04:00 Results Labs on day of discharge: Labs from last 24 hours 06/20/20 06/20/20 06/17/20 05:30 05:30 15:45 WBC 9.2 D RBC 4.78 D Hgb 11.5 L D Hct 37.0 MCV 77.5 L MCH 23.9 L MCHC 30.8 L RDW 18.5 H Plt Count 432 H D MPV 8.6 Neut % (Auto) 77.7 Lymph % (Auto) 19.2 [place] % (Auto) 2.7 Eos % (Auto) 0.1 Baso % (Auto) 0.4 Neut # (Auto) 7.2 Lymph # (Auto) 1.8 [place] # (Auto) 0.3 Eos # (Auto) 0.0 Baso # (Auto) 0.0 Sodium 129 L Potassium 3.7 Chloride 97 L Carbon Dioxide 27 Anion Gap 8.7 BUN 9 Creatinine 0.40 L Estimated Creat Clear 209 Estimated GFR 191 Est GFR ( Amer) 232 Glucose 97 Calcium 7.4 L Total Bilirubin 0.2 AST 31 D ALT 13 D Alkaline Phosphatase 138 H Total Protein 5.3 L D Albumin 1.9 L D Globulin 3.4 H Albumin/Globulin Ratio 0.6 L Stool Calprotectin 3840 H Atypical p-ANCA S.cerevisiae IgG Ab S.cerevisiae IgA Ab 06/17/20 09:50 WBC RBC Hgb Hct MCV MCH MCHC RDW Plt Count MPV Neut % (Auto) Lymph % (Auto) [place] % (Auto) Eos % (Auto) Baso % (Auto) Neut # (Auto)
[2020-06-21 07:10] LABS: Alanine Aminotransferase 15 U/L (12-78); Albumin/Globulin Ratio 0.6 (1.1-1.8); Alkaline Phosphatase 143 U/L (38-126); Anion Gap 8.4 mEq/L (5-15); Aspartate Amino Transferase 31 U/L (14-36); Blood Urea Nitrogen 9 mg/dl (7-17); Calcium 7.3 mg/dl (8.4-10.2); Carbon Dioxide 28 mmol/L (22.0-30.0); Chloride 98 mmol/L (98-107); Creatinine Clearance Estimated 217 mL/min (50-200); Estimated Glomerular Filt Rate 191 ml/min (>60); GFR (African American) 232 ML/MIN (>60); Globulin 3.2 g/dL (1.3-3.2); Glucose 84 mg/dl (74-100); Magnesium 1.9 mg/dl (1.6-2.3); Potassium 3.4 mmoL/L (3.5-5.1); Sodium 131 mmol/L (136-145); Total Protein,Serum 5.2 g/dl (6.3-8.2)
[2020-06-21 07:11] LABS: Bilirubin,Total 0.1 mg/dl (0.2-1.3)
--- NOTE | 2020-06-21 11:36 | HMH.ACPN ---
Internal Medicine - PN: Subj *Date: 06/21/20 *Time: 11:36 Exam Vital signs and Labs for Last 24 Hours: Temp Pulse Resp BP Pulse Ox 97.9 F 95 H 18 120/84 99 06/21/20 07:49 06/21/20 07:49 06/21/20 07:49 06/21/20 07:49 06/21/20 08:00 Laboratory Results - last 24 hr 06/17/20 09:50: Atypical p-ANCA 1:80 H, S.cerevisiae IgG Ab <20.0, S.cerevisiae IgA Ab <20.0 06/17/20 15:45: Stool Calprotectin 3840 H 06/21/20 05:55: WBC 5.9 D, RBC 4.54, Hgb 10.8 L, Hct 35.0 L, MCV 77.2 L, MCH 23.8 L, MCHC 30.9 L, RDW 18.7 H, Plt Count 395, MPV 7.6, Neut % (Auto) 71.0, Lymph % (Auto) 25.8, [place] % (Auto) 3.0, Eos % (Auto) 0.0 L, Baso % (Auto) 0.2, Neut # (Auto) 4.2, Lymph # (Auto) 1.5, [place] # (Auto) 0.2, Eos # (Auto) 0.0, Baso # (Auto) 0.0 06/21/20 05:55: Sodium 131 L, Potassium 3.4 L, Chloride 98, Carbon Dioxide 28, Anion Gap 8.4, BUN 9, Creatinine 0.40 L, Estimated Creat Clear 217, Estimated GFR 191, Est GFR ( Amer) 232, Glucose 84, Calcium 7.3 L, Magnesium 1.9, Total Bilirubin 0.1 L, AST 31, ALT 15, Alkaline Phosphatase 143 H, Total Protein 5.2 L, Albumin 2.0 L, Globulin 3.2, Albumin/Globulin Ratio 0.6 L I & O for Last 24 hours: Intake & Output 06/18/20 06/19/20 06/20/20 06/21/20 23:59 23:59 23:59 23:59 Intake Total 2020 4093 / 4093 962 / 962 Output Total 500 / 500 500 / 500 Balance 2019 3593 / 3593 962 / 962 -500 / -500 Weight 59.931 kg 60 kg 62.7 kg 64.609 kg Assessment and Plan (1) Inflammatory bowel diseases (IBD) Problem details: Has responded well to steroids. Fecal Calprotectin significantly elevated, fecal lactoferrin still pending. P-ANCA positive. Suggestive of ulcerative colitis. Formal diagnosis pending results from colonoscopy. Will need further follow-up as an outpatient with GI. Status: Acute Category: Medical Code(s): K52.9 - Noninfective gastroenteritis and colitis, unspecified (2) Colitis Status: Acute Category: Medical Code(s): K52.9 - Noninfective gastroenteritis and colitis, unspecified (3) Anemia Status: Acute Qualifiers: Anemia type: unspecified type Qualified Code(s): D64.9 - Anemia, unspecified Category: Medical Code(s): D64.9 - Anemia, unspecified (4) COVID-19 virus infection Status: Acute Category: Medical Code(s): U07.1 - COVID-19 (5) Hypokalemia Status: Acute Category: Medical Code(s): E87.6 - Hypokalemia (6) Hyponatremia Status: Acute Category: Medical Code(s): E87.1 - Hypo-osmolality and hyponatremia (7) Hypomagnesemia Status: Acute Category: Medical Code(s): E83.42 - Hypomagnesemia The patient's infection will respond to the chosen ABx?: Yes Is the patient receiving the right drug, dose, and route?: Yes Could a more targeted ABx be ordered?: No
--- NOTE | 2020-06-21 14:19 | HMH.ANESCL ---
[facility] Anesthesia Checklist - Patient Identification Patient Identification: Verbal (Name & ) - Structural Data Admitted From: Inpatient Planned Operative Procedure/s: colonoscopy Consent for Planned Operative Procedure(s) Verified: Yes Verified Documents: Surgical Consent - NPO Status Verified Time NPO: 00:00 - Chart Verification Results Verified: CBC, BMP - Cardiovascular Assessment Heart Sounds: S1 & S2 Pulse Rhythm: Regular - Airway Assessment C-Spine Mobility Assessed: Yes TMJ Mobility Assessed: Yes Dentition: Good Dentition - Neurological Assessment Level of Consciousness: Awake - Anesthesia Plan Anesthesia Risk discussed: Yes ASA Class: III Anesthesia Type: [facility] History I have reviewed the patient's past medical history: Yes Medical History: Denies:: Diabetes Mellitus Type 1, Diabetes Mellitus Type 2, Hyperlipidemia, Hypertension *Have you ever received a pneumonia vaccine?: No *Have you received a flu vaccine this season?: Yes Anesthesia experience/problems:: none Laterality Cases: Bilateral: Other Other Surgeries: Yes: , Tubal Ligation - *Social History Last grade of school completed: Some college Smoking Status: Never smoker Tobacco Type: cigarettes # Packs/Day (cigarettes): 1 Alcohol Intake: never Substance Use Type: denies use *Occupational Status:: employed Housing: house Household Members: spouse, children *Travel in the last 8 weeks: None Family Hx:: Cancer, Alcoholism
--- NOTE | 2020-06-21 14:33 | PC.NURSE ---
Pt down for scope @ this time by wheelchair accompanied by staff.
--- NOTE | 2020-06-21 14:52 | HMH.PROC ---
[facility] Procedure Note Procedure Note:: Colonoscopy Procedure Report: Colonoscopy with cold biopsies Endoscopist: Alejandro Wayne II, MD Referring physician: Roberto Winters MD Date of Procedure: June 21, 2020 Equipment: Olympus 180 variable stiffness pediatric colonoscope Sedation: MAC sedation Indication: Mrs. Marte is a 25-year-old female who has been admitted several times for diarrhea and bloody stools. She also has had nausea and some vomiting. She has received intravenous fluids. She had a negative PCR gastrointestinal stool panel for pathogens. Her CAT scan on 05/23/2020 showed pancolitis with mild stranding of the pericolic fat. She had received IV antibiotics with Levaquin and Flagyl. The patient also was diagnosed with COVID-19 2-/2 weeks ago. The patient has had anemia with hemoglobin and hematocrit 9.9 and 31.3. She does have a very mildly elevated alkaline phosphatase level. She has thrombocytosis related to inflammation. Her sed rate was 17. She reports a 20 to 30 pound weight loss. She has had crampy lower abdominal pain and discomfort with diarrhea and loss of appetite. She has some moderate fatigue. The patient reports no gas or bloating. She has 6-8 loose to watery bowel movements daily. Procedure: Prior to the procedure, a history and physical exam was performed, and patient's medications and allergies were reviewed. The risks, benefits and alternatives of the sedation and procedure were discussed with the patient. All questions were answered and informed consent was obtained. The patient was brought to the procedure room. Patient identification and proposed procedure were verified by the physician and the nurse. The patient was placed in a left lateral decubitus position and the scope was passed under direct vision. Throughout the procedure, the patient's blood pressure, pulse, and oxygen saturations were monitored continuously. The colonoscopy was accomplished without difficulty. The patient tolerated the procedure well. Findings: On digital rectal examination there was normal rectal tone. There were no external hemorrhoids. The colonoscope was introduced through the anal canal to the rectum and advanced to the cecum. The ileocecal valve and appendiceal orifice were identified. The scope was advanced a short distance into the ileum which appeared grossly normal. The scope was then withdrawn into the colon. There was diffuse moderate to severe circumferential erythema and edema, friability and ulceration noted throughout the colon with some spontaneous heme. There were several nodular pseudopolyps and several aphthous erosions and aphthous ulcerations. There was sparing of the rectum. These findings were most consistent with moderate to severe Crohn's colitis (Crohn's disease of the large intestine but not small intestine). Biopsies were taken separately from the right/ascending colon and left colon. There were no pseudomembranes. There were areas where there was mild luminal stenosis. Impression: 1. Moderate to severe Crohn's colitis with sparing of the rectum Plan: I would recommend IV hydrocortisone 100 mg IV every 8 hours or Solu-Medrol. I would also consider oral mesalamine (Lialda 2.4 g p.o. twice daily). Given the severity of her Crohn's colitis, she will likely need a top-down approach. I would consider starting with Humira but we will need to get this approved. I would obtain iron studies and recommend parenteral iron infusion if she is low. I would also like for her to have IBD serologies ([facility]). We will need to get TB Gold testing prior to initiation of Humira. I would also obtain routine hepatitis testing. I would slowly increase diet to low residue.
[2020-06-21 16:11] LABS: Iron 26 ug/dL (37-170)
[2020-06-21 16:20] LABS: Total Iron Binding Capacity 148 ug/dL (265-497)
--- NOTE | 2020-06-21 17:26 | PC.NURSE ---
Addendum entered by Lizz Frausto RN 06/21/20 18:29: Pt up to [facility] w/ standby assistance of staff. She did have one med size blood tinged watery stool. Reports abdominal pain rating 8/10. Medicated per JUN. Dr. Ramos @ bedside @ this time speaking w/ pt to update on POC. Original Note: Still drowsy after sedation from colonoscopy. VS remain stable. Remains on room air. Afebrile. Lungs CTA. Hr regular. No edema. Abdomen soft, tender w/ active BS in all quads. Has had multiple watery stools that are blood tinged this shift, no BM since returning to room. Voiding w/o difficulty. Prior to scope pt was very weak when transferring back and forth to C. Is currently resting. No complaints voiced. Has not required any pain meds or anit-emetics this shift. Call kasey w/in reach.
--- NOTE | 2020-06-21 17:31 | HMH.ACPN2 ---
Internal Medicine - PN: Subj *Date: 06/21/20 *Time: 09:00 Interval history: Patient overall look good this morning. Still pale and weak but doing better. Tolerating clear liquid diet until last night when made n.p.o. for scope today. Afebrile. Blood pressure improved. Labs improving with increased hemoglobin and normalization of electrolytes. Denies nausea or vomiting. Still having some loose stools with blood but significant improvement. Further management pending results from C-scope. Exam Vital signs and Labs for Last 24 Hours: Temp Pulse Resp BP Pulse Ox 98.1 F 98 H 16 102/69 L 100 06/21/20 17:05 06/21/20 17:05 06/21/20 17:05 06/21/20 17:05 06/21/20 17:05 Laboratory Results - last 24 hr 06/17/20 09:50: Atypical p-ANCA 1:80 H, S.cerevisiae IgG Ab <20.0, S.cerevisiae IgA Ab <20.0 06/17/20 15:45: Stool Calprotectin 3840 H 06/21/20 05:55: WBC 5.9 D, RBC 4.54, Hgb 10.8 L, Hct 35.0 L, MCV 77.2 L, MCH 23.8 L, MCHC 30.9 L, RDW 18.7 H, Plt Count 395, MPV 7.6, Neut % (Auto) 71.0, Lymph % (Auto) 25.8, [place] % (Auto) 3.0, Eos % (Auto) 0.0 L, Baso % (Auto) 0.2, Neut # (Auto) 4.2, Lymph # (Auto) 1.5, [place] # (Auto) 0.2, Eos # (Auto) 0.0, Baso # (Auto) 0.0 06/21/20 05:55: Sodium 131 L, Potassium 3.4 L, Chloride 98, Carbon Dioxide 28, Anion Gap 8.4, BUN 9, Creatinine 0.40 L, Estimated Creat Clear 217, Estimated GFR 191, Est GFR ( Amer) 232, Glucose 84, Calcium 7.3 L, Magnesium 1.9, Total Bilirubin 0.1 L, AST 31, ALT 15, Alkaline Phosphatase 143 H, Total Protein 5.2 L, Albumin 2.0 L, Globulin 3.2, Albumin/Globulin Ratio 0.6 L 06/21/20 05:55: Iron 26 L, TIBC 148 L, Iron Saturation 17.48111 I & O for Last 24 hours: Intake & Output 06/18/20 06/19/20 06/20/20 06/21/20 23:59 23:59 23:59 23:59 Intake Total 2020 4093 / 4093 962 / 962 Output Total 500 / 500 500 / 500 Balance 2019 3593 / 3593 962 / 962 -500 / -500 Weight 59.931 kg 60 kg 62.7 kg 64.609 kg - Constitutional no acute distress, cooperative Comments: Fatigued - *Routine HEENT Exam Head: Present: normocephalic Eye: Present: EOMI, PERRL ENT: Present: mucous membranes moist - *Routine Neck Exam Present: supple. Absent: lymphadenopathy - *Routine Respiratory Exam Present: CTA bilaterally - *Routine Cardiovascular Exam Present: RRR - *Routine Abdominal Exam Present: soft, normoactive bowel sounds, tenderness (Diffuse but improving) - *Routine Extremities Exam Present: edema (1+ to knees). Absent: cyanosis, clubbing - *Routine Skin Exam Present: pallor, warm. Absent: rash - *Routine Neurological Exam Present: alert, oriented X3 Assessment and Plan (1) Inflammatory bowel diseases (IBD) Problem details: Has responded well to steroids. Fecal Calprotectin significantly elevated, fecal lactoferrin still pending. P-ANCA positive. Suggestive of ulcerative colitis. Formal diagnosis pending results from colonoscopy. Will need further follow-up as an outpatient with GI. Status: Acute Category: Medical Code(s): K52.9 - Noninfective gastroenteritis and colitis, unspecified (2) Colitis Status: Acute Category: Medical Code(s): K52.9 - Noninfective gastroenteritis and colitis, unspecified (3) Anemia Status: Acute Qualifiers: Anemia type: unspecified type Qualified Code(s): D64.9 - Anemia, unspecified Category: Medical Code(s): D64.9 - Anemia, unspecified (4) COVID-19 virus infection Status: Acute Category: Medical Code(s): U07.1 - COVID-19 (5) Hypokalemia Status: Acute Category: Medical Code(s): E87.6 - Hypokalemia (6) Hyponatremia Status: Acute Category: Medical Code(s): E87.1 - Hypo-osmolality and hyponatremia (7) Hypomagnesemia Status: Acute Category: Medical Code(s): E83.42 - Hypomagnesemia - Assessment and plan all Dx Assessment and Plan for all problems:: 25-year-old female with suspected inflammatory bowel disease. Labs positive for elev
--- NOTE | 2020-06-21 22:27 | PC.NURSE ---
Spoke with lab about collection for QuantiFERon client incubated routine. Can not be obtained at this time. Will have to be collected on Wednesday. Will pass on to AM nurse to notify .
[2020-06-22] VITALS: BP 103/73; PULSE 91; RESP 16; TEMP 36.7; O2SAT 97
[2020-06-22 04:00] VITALS: BP 110/73; PULSE 87; RESP 16; TEMP 36.6; O2SAT 100
--- NOTE | 2020-06-22 04:51 | PC.NURSE ---
shift summary pts lung sounds are slightly diminished sats maintained 95% or above on room air with a rate ranging from 16-18. pt complained of abdominal pain once which was relieved with pain meds. pt is alert and oiented X4. pt uses bedside commode urine clear, yellow in color. pt still has blood tinged stool observed by staff.
[2020-06-22 05:00] VITALS: BMI 27.0
[2020-06-22 08:00] VITALS: BP 128/92; PULSE 116; RESP 16; TEMP 36.7; O2SAT 97
--- NOTE | 2020-06-22 08:35 | HMH.DCSUM ---
General - General Admission date:: 06/17/20 Discharge date: 06/22/20 HPI HPI: This is a 25-year-old female patient who has been seen in the ER and the hospital multiple times over the past month with symptoms of nausea, vomiting, diarrhea and bloody stools. She came to the ER initially and was diagnosed with colitis. She initially improved with IV fluids and was discharged home. She did not improve at home, came back through the ER and was admitted with nausea, vomiting, abdominal pain and persistent colitis 05/23/2020. Stool panel was negative at that time she did have an elevated white blood cell count of 14,000. CT scan on 05/23/2020 showed pancolitis with mild stranding of the pericolic fat. She was treated with IV Levaquin and Flagyl and reports that she was discharged home with oral Levaquin and Flagyl. She reports that she was only able to take about 3 days of the medication at home because she had such severe nausea and vomiting she could not keep it down. The patient reports that after arriving home she began to have a loss of taste and smell and was diagnosed with Covid-19 two weeks ago. Since then she has not had resolution of her symptoms. She has developed significantly more fatigue. She has been unable to hydrate herself appropriately. Her mucous membranes are dry and she appears acutely ill. She is having rectal bleeding, bright red blood per rectum every day for over a month. She came back to the ER and is now admitted again. Her hemoglobin dropped from 12.8 to 9.9 since initial hospitalization 1 month ago. She is pale and reports fatigue and tiredness. She is hyponatremic and hypokalemic with a sodium level of 123 and a potassium level of 2.4. She is admitted for IV fluids and rehydration and is on IV Ertanepenem. Her repeat Covid screening is positive. She denies any respiratory symptoms or fevers. The patient is reporting 8 watery stools per day with nausea and vomiting. She denies any fever but she has abdominal pain across her lower abdomen and is exquisitely tender to palpation. The patient denies any family history of colon cancer, inflammatory bowel disease or celiac disease. She denies any history of the symptoms prior to this. We are awaiting a repeat stool panel and a fecal calprotectin and lactoferrin. Above note per GI consultation, agree with history. Patient normally sees Dr. Winters, she saw him after her admission last month and antibiotics were stopped. She feels somewhat better after 1 L of IV fluid. Continues to feel weak, abdominal cramping is somewhat improved Hospital Course Hospital Course: Patient was admitted to hospital. Please see ER notes above. Given patient's repetitive episodes of bleeding the diagnosis of inflammatory bowel disease was considered and GI was consulted. Recommendations were followed, antibiotics were discontinued and patient was placed on p.o. steroids after initially IV steroids and did well with this. Over the next several days she did have significant lower GI bleeding requiring a total of 2 units of packed cells with good improvement in her hemoglobin. Yesterday she was subjected to colonoscopy which did reveal changes consistent with Crohn's disease and GI recommendations were made for oral prednisone with slow taper. This morning she is feeling good, up on the side of the bed eating. Plan number to discharge her home. She will be on prednisone, 60 mg daily for 1 week then tapering down by 10 mg weekly, we will see her in our offices this coming Wednesday, to follow clinical course and establish care as an outpatient. We will also follow along with GI. Of note she did have a positive COVID-19 PCR but she was diagnosed with a rapid antigen test at her place of employment greater than 20 days ago so she is not contagious and can resume normal activity when she feels well from a GI perspective Objective Vital signs: Temp Pulse Resp BP Pulse Ox 97.8 F
[2020-06-24 19:56] LABS: Lactoferrin, Fecal, Quant. 208.68 ug/mL(g) (0.00-7.24)
== END 2020-06-22 11:00 | disposition home or self-care (01) | DRG 391 ==
LOC: ER 11:36 → ICU 06-18 05:59 → 2ND 06-18 10:21
PROVIDERS: Internal Medicine Adolescent Medicine; Internal Medicine Gastroenterology; Nurse Practitioner Family; Admitting Provider Internal Medicine Adolescent Medicine; Emergency Provider Family Medicine; PCP Internal Medicine; Visit Provider Internal Medicine Adolescent Medicine
PROC: 0DJD8ZZ Inspection of Lower Intestinal Tract, Via Natural or Artificial Opening Endoscopic (ICD-10-PCS; CPT 45378; principal; 2020-06-21 14:00)
DX: K58.0 Irritable bowel syndrome with diarrhea (principal); U07.1 COVID-19; E87.1 Hypo-osmolality and hyponatremia; E87.6 Hypokalemia; D64.9 Anemia, unspecified; E83.42 Hypomagnesemia
CPT/HCPCS: 45380; 36415; 80048; 80053; 81001; 81025; 82728; 83540; 83550; 83605; 83630; 83735; 83993; 84100; 84145; 85007; 85014; 85018; 85025; 85651; 86140; 86256; 86671; 86850; 87040; 87086; 87385; 87507; 96365; 96367; 99284; J1335; J2405; P9016; Q0138; U0003

== ENCOUNTER → 2020-06-28 12:09 | Outpatient (CLI) | payer OTHER, SELFPAY ==
--- NOTE | 2020-06-28 12:29 | XR_ITS ---
PROCEDURE: XR CHEST 2V CLINICAL HISTORY: CROHNS,REGIONAL ENTERITIS COMPARISON: CT CT ABDOMEN PELVIS W CON from 05/23/2020 FINDINGS: The cardiomediastinal silhouette and pulmonary vascularity are within normal limits. The lungs are clear without infiltrates, suspicious nodules, or pleural effusions. Air is present in the right hemidiaphragm consistent with pneumoperitoneum. Calcified granuloma is present in the anterior clear space. No acute bony findings IMPRESSION: Pneumoperitoneum Old granulomatous disease Dr. Wayne was notified of the above findings by telephone 06/28/2020 at 2:20 p.m. Dictated by: Benedicto Yan MD 06/28/2020 14:38 Benedicto Yan MD in [place] 06/28/2020 14:38
[2020-06-28 12:49] LABS: Basophils % 0.1 % (0.1-2.0); Eosinophils % 0.1 % (0.1-12.0); Hematocrit 32.9 % (37.0-47.0); Hemoglobin 10.2 g/dL (12.2-16.2); Lymphocytes # 1.2 K/mm3 (0.7-4.5); Mean Corpuscular HGB Conc 31.1 g/dL (31.8-35.4); Mean Corpuscular Hemoglobin 24.4 pg (27.0-31.2); Mean Corpuscular Volume 78.5 fl (81-99); Mean Platelet Volume 7.6 fl (7.4-10.4); Monocytes # 0.2 K/mm3 (0.1-1.0); Monocytes % 1.9 % (1.7-9.3); Neutrophils # 10.3 K/mm3 (1.8-7.8); Neutrophils % 87.9 % (37.0-80.0); Platelet Count 473 K/mm3 (142-424); Red Blood Count 4.18 M/mm3 (4.20-5.40); Red Cell Distribution Width 19.6 % (11.5-17.5); White Blood Count 11.7 K/mm3 (4.8-10.8)
[2020-06-28 12:52] LABS: MANUAL DIFFERENTIAL MANUAL DIFFERENTIAL (MANUAL DIFF)
[2020-06-28 13:03] LABS: Alanine Aminotransferase 32 U/L (12-78); Albumin Level 2.1 g/dl (3.5-5.0); Albumin/Globulin Ratio 0.8 (1.1-1.8); Alkaline Phosphatase 127 U/L (38-126); Anion Gap 4.9 mEq/L (5-15); Aspartate Amino Transferase 22 U/L (14-36); Bilirubin,Total 0.5 mg/dl (0.2-1.3); Blood Urea Nitrogen 7 mg/dl (7-17); Calcium 7.3 mg/dl (8.4-10.2); Carbon Dioxide 38 mmol/L (22.0-30.0); Chloride 92 mmol/L (98-107); Estimated Glomerular Filt Rate 267 ml/min (>60); GFR (African American) 323 ML/MIN (>60); Globulin 2.8 g/dL (1.3-3.2); Glucose 83 mg/dl (74-100); Sodium 132 mmol/L (136-145); Total Protein,Serum 4.9 g/dl (6.3-8.2)
[2020-06-28 13:30] LABS: Potassium 2.9 mmoL/L (3.5-5.1)
[2020-06-28 14:00] LABS: Anisocytosis 1+; Hypochromasia 2+; Lymphocytes % 9 % (10-50); Microcytosis 1+; Monocytes % 3 % (2-9); Neutrophils % 88 % (42-76); Platelet Estimate Slight Increase; Stomatocytes 2+; Total Cells Counted 100
[2020-07-01 15:55] LABS: Hep B Core Ab, Total Negative (Negative); Hep Be Ag Negative (Negative); Hepatitis B Core Antibody IgM Negative (Negative); Hepatitis B Surface Antigen Negative (Negative); Hepatitis Be Antibody Negative (Negative)
[2020-07-02 14:19] LABS: Hep B Surface Ab, Qual Non Reactive (.)
== END ==
PROVIDERS: PCP Internal Medicine Adolescent Medicine; Visit Provider Internal Medicine Gastroenterology
DX: K50.90 Crohn's disease, unspecified, without complications (principal); D50.0 Iron deficiency anemia secondary to blood loss (chronic)
CPT/HCPCS: 36415; 71046; 80053; 85007; 85025; 86704; 86706; 86707; 87340; 87350

== ENCOUNTER → 2020-07-01 15:36 | Outpatient (CLI) | payer OTHER, SELFPAY ==
[2020-07-04 19:43] LABS: QuantiFERON-TB Gold Plus Negative (Negative)
== END ==
PROVIDERS: Visit Provider Internal Medicine Gastroenterology
DX: K50.90 Crohn's disease, unspecified, without complications (principal)
CPT/HCPCS: 36415; 86480

== ENCOUNTER 2020-07-05 16:44 | Inpatient (IN) | payer OTHER, SELFPAY ==
[2020-07-05 12:38] LABS: Basophils % 0.3 % (0.1-2.0); Eosinophils % 0.5 % (0.1-12.0); Hematocrit 31.8 % (37.0-47.0); Hemoglobin 9.3 g/dL (12.2-16.2); Lymphocytes # 1.4 K/mm3 (0.7-4.5); Lymphocytes % 19.1 % (10-50); Mean Corpuscular HGB Conc 29.1 g/dL (31.8-35.4); Mean Corpuscular Hemoglobin 23.4 pg (27.0-31.2); Mean Corpuscular Volume 80.4 fl (81-99); Monocytes # 0.2 K/mm3 (0.1-1.0); Neutrophils # 5.7 K/mm3 (1.8-7.8); Platelet Count 692 K/mm3 (142-424); Red Blood Count 3.96 M/mm3 (4.20-5.40); Red Cell Distribution Width 18.5 % (11.5-17.5); White Blood Count 7.4 K/mm3 (4.8-10.8)
--- NOTE | 2020-07-05 12:40 | CT_ITS ---
PROCEDURE: CT ABDOMEN PELVIS WO/W CON CLINICAL INDICATION: LT LOWER QUAD PAIN,CROHNS DISEASE COMPARISON: CT CT ABDOMEN PELVIS W CON from 05/23/2020 CR XR CHEST 2V from 06/28/2020 TECHNIQUE: IV Contrast: 75ML Isovue 370 Oral Contrast None Axial images obtained with sagittal and coronal reformats. All CT scans at the facility use one or more dose reduction, viz: automated exposure control, ma/kV adjustment per patient size (including targeted exams where dose is matched to indication, i.e. head), or iterative reconstruction technique. FINDINGS: LOWER THORAX: No acute finding ABDOMEN & PELVIS: There is diffuse fatty infiltration of the liver. Pneumoperitoneum is noted with a moderate amount of free air. There remains thickening of the large bowel consistent with colitis. There is a moderate amount of fluid in the pelvis with an air-fluid level and a small amount of interspersed gas in the cul-de-sac region within the fluid. There is mild stranding of the peritoneal fat in the lower abdomen and pelvic region suggesting peritonitis. There is no extravasation of oral contrast. There are 2 pelvic fluid collections. The 1st collection is anterior to the uterus measuring 10 by 4 cm. The 2nd collection is in the cul-de-sac region measuring 9.4 by 6.6 cm. These collections may be contiguous. No acute bony findings. IMPRESSION: Pneumoperitoneum consistent with ruptured viscus with findings suggesting peritonitis and pelvic abscess. Persistent thickening of the entire colon consistent with colitis Dictated by: Benedicto Yan MD 07/05/2020 16:36 Benedicto Yan MD in [place] 07/05/2020 16:36
[2020-07-05 12:47] LABS: Alanine Aminotransferase 12 U/L (12-78); Albumin Level 2.4 g/dl (3.5-5.0); Albumin/Globulin Ratio 0.8 (1.1-1.8); Alkaline Phosphatase 131 U/L (38-126); Anion Gap 7.7 mEq/L (5-15); Aspartate Amino Transferase 17 U/L (14-36); Bilirubin,Total 0.3 mg/dl (0.2-1.3); Blood Urea Nitrogen 8 mg/dl (7-17); Calcium 7.4 mg/dl (8.4-10.2); Carbon Dioxide 34 mmol/L (22.0-30.0); Chloride 93 mmol/L (98-107); Estimated Glomerular Filt Rate 191 ml/min (>60); GFR (African American) 232 ML/MIN (>60); Globulin 2.9 g/dL (1.3-3.2); Glucose 85 mg/dl (74-100); Sodium 132 mmol/L (136-145); Total Protein,Serum 5.3 g/dl (6.3-8.2)
[2020-07-05 12:50] LABS: Potassium 2.7 mmoL/L (3.5-5.1)
[2020-07-05 15:53] LABS: Adenovirus F 40/41, stool Not Detected (NotDetected); Astrovirus Not Detected (NotDetected); Campylobacter Not Detected (NotDetected); Cryptosporidium Not Detected (NotDetected); Cyclospora Cayetanesis Not Detected (NotDetected); Entamoeba histolytica Not Detected (NotDetected); Enteroaggregative E coli Not Detected (NotDetected); Enteropathogenic E coli Not Detected (NotDetected); Enterotoxigenic E coli Not Detected (NotDetected); Giardia lamblia Not Detected (NotDetected); Norovirus Not Detected (NotDetected); Plesimonas Shigalloides, PCR Not Detected (NotDetected); Rotavirus A Not Detected (NotDetected); Salmonella, PCR Not Detected (NotDetected); Sapovirus Not Detected (NotDetected); Shiga-like toxin E coli Not Detected (NotDetected); Shigella Enterovasive E coli Not Detected (NotDetected); Vibrio Cholerae Not Detected (NotDetected); Vibrio, PCR Not Detected (NotDetected); Yersinia Entercolitica, PCR Not Detected (NotDetected)
[2020-07-05 16:49] VITALS: BMI 22.5
[2020-07-05 17:12] VITALS: BP 117/73; PULSE 116; RESP 20; TEMP 36.8; O2SAT 98
[2020-07-05 17:15] VITALS: RESP 16
--- NOTE | 2020-07-05 17:52 | HMH.GSCON ---
*Admission Date: 07/05/20 *Reason for consult:: IBD / perforation *History of present illness: 25yo female admitted to the service of Dr. Ramos for evaluation of abdominal pain. She has known IBD and recently underwent colonoscopy by Dr. Wayne. CT scan confirms free air and abscess. Review of Systems - Review of Systems Review of systems:: unable to obtain [facility] History Medical History: Denies:: Diabetes Mellitus Type 1, Diabetes Mellitus Type 2, Hyperlipidemia, Hypertension *Have you ever received a pneumonia vaccine?: No *Have you received a flu vaccine this season?: Yes Laterality Cases: Bilateral: Other Other Surgeries: Yes: , Tubal Ligation - *Social History Smoking Status: Never smoker Tobacco Type: cigarettes # Packs/Day (cigarettes): 1 Alcohol Intake: never Substance Use Type: denies use *Occupational Status:: employed Housing: house Household Members: spouse, children *Travel in the last 8 weeks: None Family Hx:: Cancer, Alcoholism Meds Home Medications Medication Instructions Recorded Confirmed Type Mesalamine [Asacol HD 800mg Tablet] 2,400 mg PO BID 30 Days #180 06/21/20 Rx tablet. predniSONE [Deltasone 10mg tablet] 60 mg PO DAILY 30 Days #84 tab 06/21/20 Rx Allergies Allergy/AdvReac Type Severity Reaction Status Date / Time No Known Allergies Allergy Verified 05/21/20 11:35 Exam Vital signs and Labs for Last 24 Hours: Temp Pulse Resp BP Pulse Ox 98.3 F 116 H 16 117/73 98 07/05/20 17:12 07/05/20 17:12 07/05/20 17:15 07/05/20 17:12 07/05/20 17:12 Laboratory Results - last 24 hr 07/05/20 12:20: WBC 7.4, RBC 3.96 L, Hgb 9.3 L, Hct 31.8 L, MCV 80.4 L, MCH 23.4 L, MCHC 29.1 L, RDW 18.5 H, Plt Count 692 H, MPV 7.0 L, Neut % (Auto) 77.0, Lymph % (Auto) 19.1, [place] % (Auto) 3.0, Eos % (Auto) 0.5, Baso % (Auto) 0.3, Neut # (Auto) 5.7, Lymph # (Auto) 1.4, [place] # (Auto) 0.2, Eos # (Auto) 0.0, Baso # (Auto) 0.0 07/05/20 12:20: Sodium 132 L, Potassium 2.7 L*, Chloride 93 L, Carbon Dioxide 34 H, Anion Gap 7.7, BUN 8, Creatinine 0.40 L, Estimated GFR 191, Est GFR ( Amer) 232, Glucose 85, Calcium 7.4 L, Total Bilirubin 0.3, AST 17, ALT 12, Alkaline Phosphatase 131 H, Total Protein 5.3 L, Albumin 2.4 L, Globulin 2.9, Albumin/Globulin Ratio 0.8 L I & O for Last 24 hours: Intake & Output 07/03/20 07/04/20 07/05/20 07/06/20 11:59 11:59 11:59 11:59 Weight 131 lb 5 oz - Constitutional Comments: exam deferred due to need for emergent transfer Results - Labs 07/05/20 12:20 07/05/20 12:20 Laboratory Results - last 24 hr 07/05/20 12:20: WBC 7.4, RBC 3.96 L, Hgb 9.3 L, Hct 31.8 L, MCV 80.4 L, MCH 23.4 L, MCHC 29.1 L, RDW 18.5 H, Plt Count 692 H, MPV 7.0 L, Neut % (Auto) 77.0, Lymph % (Auto) 19.1, [place] % (Auto) 3.0, Eos % (Auto) 0.5, Baso % (Auto) 0.3, Neut # (Auto) 5.7, Lymph # (Auto) 1.4, [place] # (Auto) 0.2, Eos # (Auto) 0.0, Baso # (Auto) 0.0 07/05/20 12:20: Sodium 132 L, Potassium 2.7 L*, Chloride 93 L, Carbon Dioxide 34 H, Anion Gap 7.7, BUN 8, Creatinine 0.40 L, Estimated GFR 191, Est GFR ( Amer) 232, Glucose 85, Calcium 7.4 L, Total Bilirubin 0.3, AST 17, ALT 12, Alkaline Phosphatase 131 H, Total Protein 5.3 L, Albumin 2.4 L, Globulin 2.9, Albumin/Globulin Ratio 0.8 L Assessment and Plan (1) Free intraperitoneal air Status: Acute Category: Medical Code(s): K66.8 - Other specified disorders of peritoneum Due to the morbidity/mortality associated with perforated viscus s/p colonoscopy in a patient with known IBD...I recommend immediate transfer to a tertiary care center for evaluation and management (Surgical/GI/Critical Care/ID, etc.). I have spoken with Dr. Ramos concerning these recommendations. (2) IBD (inflammatory bowel disease) Status: Acute Category: Medical Code(s): K52.9 - Noninfective gastroenteritis and colitis, unspecified (3) Colitis Status: Acute Category: Medical Code(s): K52.9 - Noninfective gas
--- NOTE | 2020-07-05 18:17 | HMH.HPDC ---
General - General Admission date:: 07/05/20 Discharge date: 07/05/20 *Admission Date: 07/05/20 *Chief complaint: ABDOMINAL PAIN *History of present illness: Ms. Mciknney is a pleasant 25-year-old female, G2, P2 most recent 5 months ago, with a recent complicated hospital course of hospitalization in early May with colitis that never improved leading to rehospitalization in early June with diagnosis of Crohn's colitis at that time. Of note, she was diagnosed positive for Covid after her first hospitalization at the beginning of May. Covid symptoms resolved prior to second hospitalization where her inflammatory bowel disease was diagnosed. Patient was initiated on mesalamine and prednisone. Had gradual improvement in her symptoms until being seen in clinic today. Presented to clinic today with 2-3 days of worsening abdominal pain in lower abdomen. Increase stool output and cramping during this time of 8-11 stools a day. Patient denies vomiting or fever but has had increased tenderness of her abdomen. Pain when ambulating. Requiring help to get on and off the toilet. Patient was sent to [facility] for urgent imaging and labs. CT abdomen noted to be positive for free fluid in her lower abdomen and free air concerning for colonic perforation and peritonitis. Admitted urgently to the hospital for further management initiation of antibiotics. Surgery consult placed. Given complexity of patient, concurrent diagnosis of Crohn's with acute perforation and peritonitis, surgery concern for significant mortality risk and complexity of patient and recommended transfer to tertiary care center for further management. Of note: - CT obtained 05/21/2020 on initial admission to [facility] showed pancolitis but had no pneumoperitoneum and minimal free fluid in right pericolic gutter. -X-ray of her chest obtained 06/28/20 with free air under the right hemidiaphragm -CT obtained 07/05/2020 demonstrating pneumoperitoneum consistent with ruptured viscus with findings suggestive of peritonitis and pelvic abscess. Persistent thickening of the entire colon consistent with colitis. [facility] History I have reviewed the patient's past medical history: Yes Medical History: Denies:: Diabetes Mellitus Type 1, Diabetes Mellitus Type 2, Hyperlipidemia, Hypertension *Have you ever received a pneumonia vaccine?: No *Have you received a flu vaccine this season?: Yes Laterality Cases: Bilateral: Other Other Surgeries: Yes: , Tubal Ligation - *Social History Last grade of school completed: Some college Smoking Status: Never smoker Tobacco Type: cigarettes # Packs/Day (cigarettes): 1 Alcohol Intake: never Substance Use Type: denies use *Occupational Status:: employed Housing: house Household Members: spouse *Travel in the last 8 weeks: None Family Hx:: Alcoholism Review of Systems - Review of Systems Review of systems:: pertinent systems reviewed and negative unless documented below (14 point review of systems performed, pertinent positives and negatives as per HPI) Exam Vital signs and Labs for Last 24 Hours: Temp Pulse Resp BP Pulse Ox 98.3 F 116 H 16 117/73 98 07/05/20 17:12 07/05/20 17:12 07/05/20 17:15 07/05/20 17:12 07/05/20 17:12 Laboratory Results - last 24 hr 07/05/20 12:20: WBC 7.4, RBC 3.96 L, Hgb 9.3 L, Hct 31.8 L, MCV 80.4 L, MCH 23.4 L, MCHC 29.1 L, RDW 18.5 H, Plt Count 692 H, MPV 7.0 L, Neut % (Auto) 77.0, Lymph % (Auto) 19.1, [place] % (Auto) 3.0, Eos % (Auto) 0.5, Baso % (Auto) 0.3, Neut # (Auto) 5.7, Lymph # (Auto) 1.4, [place] # (Auto) 0.2, Eos # (Auto) 0.0, Baso # (Auto) 0.0 07/05/20 12:20: Sodium 132 L, Potassium 2.7 L*, Chloride 93 L, Carbon Dioxide 34 H, Anion Gap 7.7, BUN 8, Creatinine 0.40 L, Estimated GFR 191, Est GFR ( Amer) 232, Glucose 85, Calcium 7.4 L, Total Bilirubin 0.3, AST 17, ALT 12, Alkaline Phosphatase 131 H, Total Protein 5.3 L, Albumin 2.4 L, Globulin 2
[2020-07-05 18:18] VITALS: RESP 16
--- NOTE | 2020-07-05 18:26 | PC.NURSE ---
1730 - Dr. Ray paged for surgical consult 1734 - Dr. Ray called @ this time and made aware of consult
--- NOTE | 2020-07-05 18:59 | PC.NURSE ---
185 - Report called to Justin @ [facility].
[2020-07-05 19:03] LABS: Lactic Acid 0.9 mmol/L (0.7-2.1)
--- NOTE | 2020-07-05 19:08 | PC.NURSE ---
Attempted to notify [facility] of transfer @ 1905, no answer. 1906 - [facility] called, [facility] to call back.
--- NOTE | 2020-07-05 19:10 | PC.NURSE ---
was notified that [facility]'s ambulance would not be able to pick pt up temporarily. asked if pt needed to be airlifted out. declined. Pt can be taken by ambulance unless pt hemodynamically declines then pt can be airlifted.
[2020-07-05 19:35] LABS: Clostridium Difficile A/B, PCR Detected (NotDetected)
[2020-07-05 19:51] LABS: Microscopic,Cath URINE MICROSCOPIC (MICROSCOPIC)
[2020-07-05 20:00] VITALS: BP 120/71; PULSE 116; RESP 16; TEMP 36.8; O2SAT 97
[2020-07-05 20:05] LABS: Appearance,Urine/Cath CLEAR (Clear); Bilirubin,Cath Negative (Negative); Blood, Urine/Cath Negative (Negative); Color,Urine/Cath YELLOW (Yellow); Glucose,Urine/Cath (UA) Negative (Negative); Ketones,Urine/Cath 2+ (Negative); Leukocyte Esterase,Cath Negative (Negative); Nitrate,Cath Negative (Negative); Protein,Urine/Cath Negative (Negative); Specific Gravity, Urine/Cath <= 1.005 (1.005-1.030); Urobilinogen,Cath 0.2 EU/dl (0.2)
[2020-07-05 20:08] LABS: Amorphous Sediment,Ur/Cath Trace /lpf; WBC,Urine/Cath Occasional #/hpf (0-3)
--- NOTE | 2020-07-05 21:30 | PC.NURSE ---
[facility] ambulance picked pt up and pt to be transferred to ED. Notified Akilah at ED that PCR was positive for CDiff.
--- NOTE | 2020-07-05 21:31 | PC.NURSE ---
patient left with EMS at this time.
== END 2020-07-05 21:30 | disposition short-term general hospital (02) | DRG 395 ==
LOC: 2ND 16:45
PROVIDERS: Admitting Provider Internal Medicine Adolescent Medicine; PCP Internal Medicine Adolescent Medicine; Visit Provider Internal Medicine Adolescent Medicine
DX: K63.1 Perforation of intestine (nontraumatic) (principal); Z86.16 Personal history of COVID-19; K58.9 Irritable bowel syndrome, unspecified
CPT/HCPCS: 36415; 74178; 80053; 81001; 83605; 85025; 87040; 87075; 87086; 87507; J1956; Q9967

== ENCOUNTER 2020-09-11 08:50 | Outpatient (CLI) | payer OTHER, SELFPAY ==
[2020-09-11 09:19] VITALS: BMI 24.5
[2020-09-11 09:35] VITALS: BP 108/60; PULSE 91; RESP 17; TEMP 36.7; O2SAT 99
[2020-09-11 09:41] LABS: Basophils % 0.5 % (0.1-2.0); Eosinophils # 0.1 K/mm3 (0.0-0.4); Eosinophils % 1.3 % (0.1-12.0); Lymphocytes # 2.2 K/mm3 (0.7-4.5); Lymphocytes % 31.2 % (10-50); Mean Corpuscular HGB Conc 31.4 g/dL (31.8-35.4); Mean Corpuscular Hemoglobin 24.1 pg (27.0-31.2); Mean Corpuscular Volume 76.7 fl (81-99); Mean Platelet Volume 9.5 fl (7.4-10.4); Monocytes # 0.3 K/mm3 (0.1-1.0); Monocytes % 4.2 % (1.7-9.3); Neutrophils # 4.4 K/mm3 (1.8-7.8); Neutrophils % 62.8 % (37.0-80.0); Platelet Count 239 K/mm3 (142-424); Red Blood Count 4.57 M/mm3 (4.20-5.40); Red Cell Distribution Width 15.6 % (11.5-17.5); White Blood Count 7.1 K/mm3 (4.8-10.8)
[2020-09-11 09:50] LABS: Alanine Aminotransferase 17 U/L (12-78); Albumin Level 3.9 g/dl (3.5-5.0); Albumin/Globulin Ratio 1.3 (1.1-1.8); Alkaline Phosphatase 77 U/L (38-126); Anion Gap 8.2 mEq/L (5-15); Aspartate Amino Transferase 26 U/L (14-36); Bilirubin,Total 0.3 mg/dl (0.2-1.3); Blood Urea Nitrogen 7 mg/dl (7-17); Calcium 8.7 mg/dl (8.4-10.2); Carbon Dioxide 29 mmol/L (22.0-30.0); Chloride 106 mmol/L (98-107); Creatinine Clearance Estimated 157 mL/min (50-200); Estimated Glomerular Filt Rate 148 ml/min (>60); GFR (African American) 179 ML/MIN (>60); Glucose 88 mg/dl (74-100); Potassium 4.2 mmoL/L (3.5-5.1); Sodium 139 mmol/L (136-145); Total Protein,Serum 6.9 g/dl (6.3-8.2)
[2020-09-11 09:55] LABS: C-Reactive Protein 2.5 mg/L (0-4)
[2020-09-11 10:11] VITALS: BP 97/58; PULSE 101; RESP 17; O2SAT 98
[2020-09-11 10:51] VITALS: BP 90/50; PULSE 87; RESP 17; O2SAT 97
== END 2020-09-11 10:57 | disposition home or self-care (01) ==
LOC: INF 08:55
PROVIDERS: Visit Provider Physician Assistant
DX: K50.114 Crohn's disease of large intestine with abscess (principal)
CPT/HCPCS: 80053; 85025; 86140; 96365; 96413; J3590

== ENCOUNTER → 2021-11-22 11:40 | Outpatient (CLI) | payer OTHER, SELFPAY ==
[2021-11-22 12:56] LABS: Basophils % 0.8 % (0.1-2.0); Eosinophils # 0.1 K/mm3 (0.0-0.4); Eosinophils % 2.4 % (0.1-12.0); Hemoglobin 11.6 g/dL (12.2-16.2); Lymphocytes % 39.7 % (10-50); Mean Corpuscular HGB Conc 31.3 g/dL (31.8-35.4); Mean Corpuscular Hemoglobin 21.9 pg (27.0-31.2); Mean Platelet Volume 12.4 fl (7.4-10.4); Monocytes # 0.2 K/mm3 (0.1-1.0); Monocytes % 3.9 % (1.7-9.3); Neutrophils # 2.6 K/mm3 (1.8-7.8); Neutrophils % 53.2 % (37.0-80.0); Platelet Count 203 K/mm3 (142-424); Red Blood Count 5.29 M/mm3 (4.20-5.40); Red Cell Distribution Width 16.7 % (11.5-17.5); White Blood Count 4.9 K/mm3 (4.8-10.8)
[2021-11-22 13:01] LABS: Alanine Aminotransferase 15 U/L (12-78); Albumin Level 4.1 g/dl (3.5-5.0); Albumin/Globulin Ratio 1.3 (1.1-1.8); Alkaline Phosphatase 91 U/L (38-126); Anion Gap 11.1 mEq/L (5-15); Aspartate Amino Transferase 24 U/L (14-36); Blood Urea Nitrogen 11 mg/dl (7-17); Calcium 8.5 mg/dl (8.4-10.2); Carbon Dioxide 25 mmol/L (22.0-30.0); Chloride 105 mmol/L (98-107); Estimated Glomerular Filt Rate 147 ml/min (>60); GFR (African American) 178 ML/MIN (>60); Globulin 3.1 g/dL (1.3-3.2); Glucose 96 mg/dl (74-100); Potassium 4.1 mmoL/L (3.5-5.1); Sodium 137 mmol/L (136-145); Total Protein,Serum 7.2 g/dl (6.3-8.2)
[2021-11-22 13:08] LABS: C-Reactive Protein 4.9 mg/L (0-4)
[2021-11-22 13:10] LABS: Bilirubin,Total 0.1 mg/dl (0.2-1.3)
[2021-11-22 13:34] LABS: Erythrocyte Sedimentation Rate 14 mm/hr (0-20)
== END ==
PROVIDERS: PCP Nurse Practitioner Family; Visit Provider Nurse Practitioner Family
DX: U07.1 COVID-19 (principal); B09 Unspecified viral infection characterized by skin and mucous membrane lesions
CPT/HCPCS: 36415; 80053; 85025; 85651; 86140

== ENCOUNTER 2023-05-03 11:01 | Outpatient (POV) | payer OTHER, SELFPAY | END 2023-05-03 23:59 | disposition home or self-care (01) | LOC: SC 11:01 | PROVIDERS: Visit Provider Specialist/Technologist | DX: Z00.00 Encounter for general adult medical examination without abnormal findings (principal) ==

== ENCOUNTER 2023-05-14 14:50 | Outpatient (CLI) | payer OTHER, SELFPAY ==
--- NOTE | 2023-05-14 14:52 | MR_ITS ---
FINAL REPORT CLINICAL HISTORY: r/o acoustic neuroma. FINDINGS: Multi planar MR imaging was obtained through the brain without contrast. The midline structures appear intact. There is no evidence of Chiari malformation. On T2 and flair axial images the brain parenchyma is homogeneous. On diffusion-weighted images there is no evidence of restricted diffusion. The visualized paranasal sinuses demonstrate normal signal voids. The seventh and eighth nerve root complexes are intact. No CP angle masses are seen. IMPRESSION: Essentially unremarkable nonenhanced brain MRI. Reviewed, Interpreted and Dictated by Sven Ruelas MD Transcribed by Mimi Rojas Authenticated and [facility]
== END 2023-05-14 23:59 ==
PROVIDERS: PCP Nurse Practitioner Family; Visit Provider Nurse Practitioner
DX: H93.8X3 Other specified disorders of ear, bilateral (principal)
CPT/HCPCS: 70551

== ENCOUNTER 2023-06-07 09:48 | Outpatient (CLI) | payer OTHER, SELFPAY ==
--- NOTE | 2023-06-07 09:49 | US_ITS ---
FINAL REPORT CLINICAL HISTORY: Tinnitus COMPARISON: None FINDINGS: ULTRASOUND SOFT TISSUES NECK: Ultrasound examination of the soft tissues of the neck reveals the submandibular glands are normal in size. In the right parotid gland there is a 7 mm ovoid hypoechoic focus that may represent an intraparotid node versus cyst. There are a few scattered bilateral cervical lymph nodes identified, nonspecific. If clinically indicated CT examination of the neck with contrast could be performed. IMPRESSION: 7 mm ovoid hypoechoic focus that may represent an intraparotid node versus cyst. A few scattered bilateral cervical nodes are identified, nonspecific. If clinically indicated CT examination of the neck with contrast could be performed for further evaluation. Reviewed, Interpreted and Dictated by Sven Ruelas MD Transcribed by Aimee Glez Authenticated and . [facility]
== END 2023-06-07 23:59 ==
LOC: RAD 09:49
PROVIDERS: PCP Nurse Practitioner Family; Visit Provider Nurse Practitioner
DX: H93.8X3 Other specified disorders of ear, bilateral (principal)
CPT/HCPCS: 76536

== ENCOUNTER 2023-12-09 13:54 | Outpatient (CLI) | payer BC, SELFPAY ==
[2023-12-09 14:02] VITALS: BMI 25.4
[2023-12-09] MEDS: diphenhydrAMINE 25MG CAPSULE 25 MG PO (14:26)
[2023-12-09] MEDS: ACETAMINOPHEN 325MG TAB 650 MG PO (14:26)
[2023-12-09] MEDS: METHYLPREDNISOLONE SOD SUCC 125MG VIAL 125 MG IV (14:27)
[2023-12-09] MEDS: SODIUM CHLORIDE 0.9% 50ML BAG 50 ML IV (14:27)
[2023-12-09 14:41] LABS: Basophils % 0.8 % (0.1-2.0); Eosinophils % 0.8 % (0.1-12.0); Hematocrit 36.7 % (37.0-47.0); Hemoglobin 11.4 g/dL (12.2-16.2); Lymphocytes # 1.9 K/mm3 (0.7-4.5); Lymphocytes % 42.8 % (10-50); Mean Corpuscular HGB Conc 31.1 g/dL (31.8-35.4); Mean Corpuscular Hemoglobin 23.5 pg (27.0-31.2); Mean Corpuscular Volume 75.3 fl (81-99); Mean Platelet Volume 11.1 fl (7.4-10.4); Monocytes # 0.1 K/mm3 (0.1-1.0); Monocytes % 3.1 % (1.7-9.3); Neutrophils # 2.3 K/mm3 (1.8-7.8); Neutrophils % 52.5 % (37.0-80.0); Platelet Count 203 K/mm3 (142-424); Red Blood Count 4.88 M/mm3 (4.20-5.40); White Blood Count 4.3 K/mm3 (4.8-10.8)
[2023-12-09 14:43] LABS: Alanine Aminotransferase 18 U/L (12-78); Albumin Level 4.4 g/dl (3.5-5.0); Albumin/Globulin Ratio 1.4 (1.1-1.8); Anion Gap 9.2 mEq/L (5-15); Aspartate Amino Transferase 22 U/L (14-36); Bilirubin,Total 0.3 mg/dl (0.2-1.3); Blood Urea Nitrogen 12 mg/dl (7-17); C-Reactive Protein 0.9 mg/L (0-4); Calcium 8.4 mg/dl (8.4-10.2); Carbon Dioxide 27 mmol/L (22.0-30.0); Chloride 105 mmol/L (98-107); Creatinine Clearance Estimated 133 mL/min (50-200); Estimated Glomerular Filt Rate 117 ml/min (>60); GFR (African American) 142 ML/MIN (>60); Globulin 3.1 g/dL (1.3-3.2); Glucose 95 mg/dl (74-100); Potassium 3.2 mmoL/L (3.5-5.1); Sodium 138 mmol/L (136-145); Total Protein,Serum 7.5 g/dl (6.3-8.2)
[2023-12-09 14:44] LABS: Alkaline Phosphatase 69 U/L (38-126)
[2023-12-09] MEDS: SODIUM CHLORIDE 0.9% IV (14:57)
[2023-12-09] MEDS: USTEKINUMAB IV (14:57)
[2023-12-09 15:00] VITALS: BP 103/60; PULSE 72; RESP 16; O2SAT 99
[2023-12-09 15:30] VITALS: BP 97/58; PULSE 74; RESP 16
[2023-12-09 16:00] VITALS: BP 108/56; PULSE 75; RESP 16
== END 2023-12-09 16:15 | disposition home or self-care (01) ==
LOC: INF 13:56
PROVIDERS: PCP Internal Medicine Adolescent Medicine; Visit Provider Physician Assistant
DX: K50.114 Crohn's disease of large intestine with abscess (principal)
CPT/HCPCS: 80053; 85025; 86140; 96413; J2919; J3358

== ENCOUNTER 2024-04-03 08:54 | Outpatient (CLI) | payer BC, SELFPAY ==
[2024-04-03 09:02] VITALS: BMI 26.4
[2024-04-03 09:34] LABS: Basophils % 0.7 % (0.1-2.0); Eosinophils # 0.1 K/mm3 (0.0-0.4); Eosinophils % 2.1 % (0.1-12.0); Hematocrit 35.5 % (37.0-47.0); Hemoglobin 11.7 g/dL (12.2-16.2); Lymphocytes # 1.8 K/mm3 (0.7-4.5); Lymphocytes % 36.6 % (10-50); Mean Corpuscular Hemoglobin 23.6 pg (27.0-31.2); Mean Corpuscular Volume 71.4 fl (81-99); Monocytes # 0.2 K/mm3 (0.1-1.0); Monocytes % 3.9 % (1.7-9.3); Neutrophils # 2.8 K/mm3 (1.8-7.8); Neutrophils % 56.6 % (37.0-80.0); Platelet Count 190 K/mm3 (142-424); Red Blood Count 4.98 M/mm3 (4.20-5.40); Red Cell Distribution Width 16.2 % (11.5-17.5); White Blood Count 4.9 K/mm3 (4.8-10.8)
[2024-04-03] MEDS: SODIUM CHLORIDE 0.9% 50ML BAG 50 ML IV (09:37)
[2024-04-03] MEDS: SODIUM CHLORIDE 0.9% 10ML FLUSH SYRINGE 10 ML IV (09:37)
[2024-04-03 09:38] VITALS: BP 93/62; PULSE 79; RESP 14; TEMP 36.6; O2SAT 98
[2024-04-03] MEDS: VEDOLIZUMAB 300 MG in 0.9 % SODIUM CHLORIDE 250 ML 500 MG IV (09:38)
[2024-04-03 09:39] LABS: Alanine Aminotransferase 18 U/L (12-78); Albumin Level 4.2 g/dl (3.5-5.0); Anion Gap 12.5 mEq/L (5-15); Aspartate Amino Transferase 32 U/L (14-36); Bilirubin,Total 0.3 mg/dl (0.2-1.3); Blood Urea Nitrogen 15 mg/dl (7-17); Calcium 8.5 mg/dl (8.4-10.2); Carbon Dioxide 25 mmol/L (22.0-30.0); Chloride 107 mmol/L (98-107); Creatinine Clearance Estimated 163 mL/min (50-200); Estimated Glomerular Filt Rate 144 ml/min (>60); GFR (African American) 174 ML/MIN (>60); Glucose 87 mg/dl (74-100); Potassium 4.5 mmoL/L (3.5-5.1); Sodium 140 mmol/L (136-145); Total Protein,Serum 6.9 g/dl (6.3-8.2)
[2024-04-03 09:40] LABS: Albumin/Globulin Ratio 1.6 (1.1-1.8); Alkaline Phosphatase 46 U/L (38-126); Globulin 2.7 g/dL (1.3-3.2)
[2024-04-03 09:44] LABS: C-Reactive Protein 2.1 mg/L (0-4)
[2024-04-03 09:55] VITALS: BP 100/69; PULSE 87; RESP 16; O2SAT 98
[2024-04-03 10:15] VITALS: BP 108/62; PULSE 85; RESP 16; TEMP 36.6; O2SAT 99
== END 2024-04-03 23:59 | disposition home or self-care (01) ==
LOC: INF 08:55
PROVIDERS: PCP Internal Medicine Adolescent Medicine; Visit Provider Physician Assistant
DX: K50.90 Crohn's disease, unspecified, without complications (principal)
CPT/HCPCS: 80053; 85025; 86140; 96413; J3380

== ENCOUNTER 2024-04-17 09:00 | Outpatient (CLI) | payer BC, SELFPAY ==
[2024-04-17 09:08] VITALS: BMI 26.4
[2024-04-17 09:24] LABS: Basophils % 0.7 % (0.1-2.0); Eosinophils # 0.1 K/mm3 (0.0-0.4); Eosinophils % 2.4 % (0.1-12.0); Hemoglobin 11.6 g/dL (12.2-16.2); Lymphocytes # 1.9 K/mm3 (0.7-4.5); Lymphocytes % 42.3 % (10-50); Mean Corpuscular HGB Conc 31.4 g/dL (31.8-35.4); Mean Corpuscular Hemoglobin 23.5 pg (27.0-31.2); Mean Corpuscular Volume 75.1 fl (81-99); Mean Platelet Volume 11.3 fl (7.4-10.4); Monocytes # 0.2 K/mm3 (0.1-1.0); Neutrophils # 2.3 K/mm3 (1.8-7.8); Neutrophils % 49.6 % (37.0-80.0); Platelet Count 183 K/mm3 (142-424); Red Blood Count 4.93 M/mm3 (4.20-5.40); Red Cell Distribution Width 15.2 % (11.5-17.5); White Blood Count 4.6 K/mm3 (4.8-10.8)
[2024-04-17] MEDS: SODIUM CHLORIDE 0.9% 50ML BAG 50 ML IV (09:24)
[2024-04-17] MEDS: SODIUM CHLORIDE 0.9% 10ML FLUSH SYRINGE 10 ML IV (09:24)
[2024-04-17 09:25] VITALS: BP 100/60; PULSE 78; RESP 16; TEMP 37.1; O2SAT 100
[2024-04-17] MEDS: VEDOLIZUMAB 300 MG in 0.9 % SODIUM CHLORIDE 250 ML 500 MG IV (09:25)
[2024-04-17 09:39] LABS: Alanine Aminotransferase 15 U/L (12-78); Albumin Level 4.3 g/dl (3.5-5.0); Albumin/Globulin Ratio 1.7 (1.1-1.8); Alkaline Phosphatase 61 U/L (38-126); Anion Gap 10.8 mEq/L (5-15); Aspartate Amino Transferase 25 U/L (14-36); Bilirubin,Total 0.3 mg/dl (0.2-1.3); Blood Urea Nitrogen 14 mg/dl (7-17); Calcium 8.8 mg/dl (8.4-10.2); Carbon Dioxide 28 mmol/L (22.0-30.0); Chloride 104 mmol/L (98-107); Creatinine Clearance Estimated 136 mL/min (50-200); Estimated Glomerular Filt Rate 117 ml/min (>60); GFR (African American) 141 ML/MIN (>60); Globulin 2.6 g/dL (1.3-3.2); Glucose 83 mg/dl (74-100); Potassium 3.8 mmoL/L (3.5-5.1); Sodium 139 mmol/L (136-145); Total Protein,Serum 6.9 g/dl (6.3-8.2)
[2024-04-17 09:46] LABS: C-Reactive Protein < 0.3 mg/L (0-4)
[2024-04-17 10:05] VITALS: BP 106/65; PULSE 82; RESP 16; TEMP 36.9; O2SAT 100
== END 2024-04-17 10:05 | disposition home or self-care (01) ==
LOC: INF 09:01
PROVIDERS: PCP Internal Medicine Adolescent Medicine; Visit Provider Physician Assistant
DX: K50.00 Crohn's disease of small intestine without complications (principal)
CPT/HCPCS: 80053; 85025; 86140; 96413; J3380

== ENCOUNTER 2024-05-17 09:09 | Outpatient (CLI) | payer BC, SELFPAY ==
[2024-05-17 09:13] VITALS: BP 116/81; PULSE 103; RESP 18; TEMP 36.7; O2SAT 100; BMI 26.4
[2024-05-17] MEDS: SODIUM CHLORIDE 0.9% 50ML BAG 50 ML IV (09:28)
[2024-05-17] MEDS: VEDOLIZUMAB 300 MG in 0.9 % SODIUM CHLORIDE 250 ML 500 MG IV (09:29)
[2024-05-17 09:36] LABS: Albumin Level 4.6 g/dl (3.5-5.0); Chloride 103 mmol/L (98-107); Sodium 140 mmol/L (136-145)
[2024-05-17 09:37] LABS: Potassium 4.1 mmoL/L (3.5-5.1)
[2024-05-17 09:39] LABS: Alanine Aminotransferase 18 U/L (12-78); Anion Gap 12.1 mEq/L (5-15); Aspartate Amino Transferase 29 U/L (14-36); Blood Urea Nitrogen 14 mg/dl (7-17); Carbon Dioxide 29 mmol/L (22.0-30.0); Creatinine Clearance Estimated 136 mL/min (50-200); Estimated Glomerular Filt Rate 117 ml/min (>60); GFR (African American) 141 ML/MIN (>60)
[2024-05-17 09:40] LABS: Albumin/Globulin Ratio 1.5 (1.1-1.8); Alkaline Phosphatase 62 U/L (38-126); Bilirubin,Total 0.2 mg/dl (0.2-1.3); Calcium 8.7 mg/dl (8.4-10.2); Glucose 89 mg/dl (74-100); Total Protein,Serum 7.6 g/dl (6.3-8.2)
[2024-05-17 10:02] LABS: Basophils % 0.6 % (0.1-2.0); Eosinophils # 0.1 K/mm3 (0.0-0.4); Eosinophils % 1.7 % (0.1-12.0); Hematocrit 39.7 % (37.0-47.0); Hemoglobin 12.5 g/dL (12.2-16.2); Lymphocytes % 43.5 % (10-50); Mean Corpuscular HGB Conc 31.5 g/dL (31.8-35.4); Mean Corpuscular Hemoglobin 23.9 pg (27.0-31.2); Mean Corpuscular Volume 75.8 fl (81-99); Mean Platelet Volume 12.3 fl (7.4-10.4); Monocytes # 0.2 K/mm3 (0.1-1.0); Monocytes % 4.9 % (1.7-9.3); Neutrophils # 2.3 K/mm3 (1.8-7.8); Neutrophils % 49.3 % (37.0-80.0); Platelet Count 191 K/mm3 (142-424); Red Blood Count 5.24 M/mm3 (4.20-5.40); Red Cell Distribution Width 15.2 % (11.5-17.5); White Blood Count 4.7 K/mm3 (4.8-10.8)
[2024-05-17 10:15] VITALS: BP 110/64; PULSE 80; RESP 18; O2SAT 99
[2024-05-17 10:16] LABS: C-Reactive Protein < 0.3 mg/L (0-4)
== END 2024-05-17 10:15 | disposition home or self-care (01) ==
LOC: INF 09:10
PROVIDERS: PCP Internal Medicine Adolescent Medicine; Visit Provider Physician Assistant
DX: K50.90 Crohn's disease, unspecified, without complications (principal)
CPT/HCPCS: 80053; 85025; 86140; 96413; J3380

== ENCOUNTER 2024-07-12 09:08 | Outpatient (CLI) | payer BC, SELFPAY ==
[2024-07-12 09:13] VITALS: BMI 26.4
[2024-07-12 09:30] LABS: Basophils % 0.5 % (0.1-2.0); Eosinophils # 0.1 K/mm3 (0.0-0.4); Eosinophils % 2.1 % (0.1-12.0); Hematocrit 39.2 % (37.0-47.0); Hemoglobin 12.2 g/dL (12.2-16.2); Lymphocytes # 1.7 K/mm3 (0.7-4.5); Lymphocytes % 38.6 % (10-50); Mean Corpuscular HGB Conc 31.1 g/dL (31.8-35.4); Mean Platelet Volume 12.1 fl (7.4-10.4); Monocytes # 0.2 K/mm3 (0.1-1.0); Monocytes % 5.3 % (1.7-9.3); Neutrophils # 2.3 K/mm3 (1.8-7.8); Neutrophils % 53.3 % (37.0-80.0); Platelet Count 169 K/mm3 (142-424); Red Blood Count 5.09 M/mm3 (4.20-5.40); Red Cell Distribution Width 15.1 % (11.5-17.5); White Blood Count 4.3 K/mm3 (4.8-10.8)
[2024-07-12] MEDS: SODIUM CHLORIDE 0.9% 50ML BAG 50 ML IV (09:32)
[2024-07-12] MEDS: SODIUM CHLORIDE 0.9% 10ML FLUSH SYRINGE 10 ML IV (09:33)
[2024-07-12] MEDS: VEDOLIZUMAB 300 MG in 0.9 % SODIUM CHLORIDE 250 ML 500 MG IV (09:34)
[2024-07-12 09:38] VITALS: BP 107/65; PULSE 90; RESP 18; TEMP 36.4; O2SAT 98
[2024-07-12 09:38] LABS: Alanine Aminotransferase 15 U/L (12-78); Albumin Level 4.5 g/dl (3.5-5.0); Albumin/Globulin Ratio 1.7 (1.1-1.8); Alkaline Phosphatase 54 U/L (38-126); Anion Gap 12.9 mEq/L (5-15); Aspartate Amino Transferase 25 U/L (14-36); Bilirubin,Total 0.4 mg/dl (0.2-1.3); Blood Urea Nitrogen 17 mg/dl (7-17); Calcium 9.1 mg/dl (8.4-10.2); Carbon Dioxide 28 mmol/L (22.0-30.0); Chloride 103 mmol/L (98-107); Creatinine Clearance Estimated 136 mL/min (50-200); Estimated Glomerular Filt Rate 117 ml/min (>60); GFR (African American) 141 ML/MIN (>60); Globulin 2.7 g/dL (1.3-3.2); Glucose 88 mg/dl (74-100); Potassium 3.9 mmoL/L (3.5-5.1); Sodium 140 mmol/L (136-145); Total Protein,Serum 7.2 g/dl (6.3-8.2)
[2024-07-12 09:45] LABS: C-Reactive Protein 0.6 mg/L (0-4)
[2024-07-12 10:17] VITALS: BP 112/63; PULSE 85; RESP 18; O2SAT 98
== END 2024-07-12 10:17 | disposition home or self-care (01) ==
LOC: INF 09:09
PROVIDERS: PCP Internal Medicine Adolescent Medicine; Visit Provider Physician Assistant
DX: K50.90 Crohn's disease, unspecified, without complications (principal)
CPT/HCPCS: 80053; 85025; 86140; 96413; J3380

== ENCOUNTER 2024-09-06 09:38 | Outpatient (CLI) | payer OTHER, SELFPAY ==
--- OUTSIDE RECORDS SUMMARY | 2024-09-06 09:54 | XMS_ITS | Data Portability ---
Author Organization [facility] [place] & ARIC Guerrier ADMIN Address [address] [place] [id number] Care Team Providers Care Tester Regulator Name Role Phone BENNY DONAHUE Primary Care Provider [phone] Assessment No assessment recorded. Plan of Treatment Reminders Order Date Submit Date Provider Last Modified By Organization Details Last Modified Time Details Appointments None recorded. Lab None recorded. Referral None recorded. Procedures None recorded. Surgeries None recorded. Imaging MR, angiogram , head + neck, w/wo contrast 2023 024 [facility] Number, [address] [place] [address], [phone], 4 08:39:39 MR, venogram, brain, w/wo contrast 2023 024 [facility]fl[facility] [place] Number, [address] [place] [address], [phone], 4 16:17:27 Medication Orders None recorded. Patient TargetsNo targets recorded. Patient InstructionsNo instructions recorded. Reason for Referral None Reported. Results Created Date Observation Date Name Description Value Unit Range Abnormal Flag Note LastModifiedBy Organization Detail LastModifiedTime 10/15/1906/07/2023 US, neck, soft tissu e No observ ation record ed. [facility] Not Available 2023 15:12:39 10/15/19 24 05/14/2023 MRI, brain , w/wo contr ast No observ ation record ed. [facility] Not Available 2023 15:12:39 Result Notes None recorded. Procedures Surgical History Date Name Laterality Status Provider Name and Address Organization Details Recorded Time 10/13/19 24 Date of Last Colonoscopy completed Mellisa ROE - [facility] [place] 10/15/2023 14:14:09 04/19/19 24 Colonoscopy completed Mellisa LARA [facility] [place] 10/15/2023 14:17:58 04/19/19 21 Gastrointestinal Surgery completed Mellisaalexsandra LARA [facility] & [place] 10/15/2023 14:14:46 Imaging Results Imaging Date Name Status LastModified by Organiz ation Details LastModified Time 06/07/2023 US, neck, soft tissue completed [facility] Information not available 10/15/2023 15:12:39 05/14/2023 MRI, brain, w/wo contrast completed [facility] Information not available 10/15/2023 15:12:39 Procedure Notes None recorded. Medical Equipment None Reported. Allergies No known drug allergies Medications Name Sig Start Date Stop Date Status Note LastModified by Organization Details LastModified Time prednisone 20 mg tablet TAKE ONE TABLET BY MOUTH ONCE DAILY FOR 5 DAYS -- FINISH ALL MEDICINE -- --TAKE WITH FOOD-- 10/06 completed Not Available Not Available Not Available Sudogest 30 mg tablet TAKE ONE TABLET BY MOUTH THREE TIMES DAILY 10/06 completed Not Available Not Available Not Available amoxicillin 875 mg tablet TAKE ONE TABLET BY MOUTH EVERY TWELVE HOURS FOR 7 DAYS -- FINISH ALL MEDICINE -- 10/06 completed Not Available Not Available Not Available omeprazole 20 mg capsule,del ayed release TAKE ONE CAPSULE BY MOUTH EVERY DAY 30-60 minutes prior TO breakfast -SWALLOW WHOLE. DO NOT CRUSH OR CHEW- 10/14 completed Not Available Not Available Not Available montelukast 10 mg tablet TAKE ONE TABLET BY MOUTH EVERY DAY AT BEDTIME 10/06 completed Not Available Not Available Not Available azelastine 137 mcg (0.1 %) nasal spray INSTILL 2 SPRAYS IN EACH NOSTRIL TWICE DAILY FOR 3 WEEKS 10/06 completed Not Available Not Available Not Available phentermine 37.5 mg capsule TAKE ONE CAPSULE BY MOUTH EVERY DAY 10/06 completed Not Available Not Available Not Available mesalamine 1,000 mg rectal suppository unwrap AND INSERT ONE SUPPOSITO RY RECTALLY EVERY NIGHT. USE DIRECTED 10/06 completed Not Available Not Available Not Available ferrous gluconate 324 mg (38 mg iron) tablet TAKE ONE TABLET BY MOUTH EVERY DAY with breakfast 10/06 completed Not Available Not Available Not Available peg 3350-electr olytes 236 gram-22.74 gram-6.74 gram-5.86 gram solution MIX DIRECTED AND DRINK 240 ML (8 OUNCES) BY MOUTH EVERY 10 MINUTES UNTIL FECAL EFFLUENT IS CLEAR OR OTHERWISE DIRECTED DO NOT EXCEED TOTAL VOLUME OF 4000 ML 10/11 completed Not Available Not Available Not Available levocetiriz ine 5 mg tablet TAKE ONE TABLET BY MOUTH EVERY EVENING 10/06 completed Not Available Not Available Not Available Stelara 90 mg/mL subcutaneou s syringe Inject by subcutane ous route. active Not Available Not Available No t Available Vitals Date Recorded Body weight Body temperature Body mass index (BMI) Body height Provider Name and Address Organization Details Last Updated DateTime 10/15/2023 10528.15 g 98.9 [degF] 25.9 kg/m2 154.94 cm Mellisa Wahl [facility] [place] 10/15/2023 14:13:40 Social History Question Answer Notes LastModified by [employer] ion Details LastModified Time Tobacco Smoking Status Former Smoker Mellisa JYOTHI Gill [facility] & [place] 10/15/2023 14:14:38 Do You Have An Advance Directive? No Information not available 10/15/2023 Are You Blind Or Do You Have Difficulty Seeing? No Information not available 10/15/2023 Are You Passively Exposed To Smoke? No Information not available 10/15/2023 How Much Tobacco Do You Smoke? 0.25 PPD Information not available 10/15/2023 How Many Years Have You Smoked Tobacco? 7 Information not available 10/15/2023 Sex: Unknown Functional Status Question Answer Note LastModified by Organizat ion Details LastModified Time Do you use any illicit or recreational drugs? No Information not available 10/15/2023 What is your level of alcohol consumption? None Information not available 10/15/2023 Do you or have you ever used smokeless tobacco? 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 Occasional Information not available 10/15/2023 Mental Status Question Answer Note LastModified by Organization D etails LastModified Time Do you feel stressed (tense, restless, nervous, or anxious, or unable to sleep at night)? [id number] Information not available 10/15/2023 Family History Nothing Reported. Medical History Condition Response GI Problems Y Anemia Y Gynecological History Statement/Question Response Abnormal Pap N Flow Moderate Date of Last Colonoscopy 10/13/2023 Date of LMP 10/15/2023 Sexually Active? Y Menses Monthly Y Duration of Flow (days) 5 Current Control Method Tubal Ligat ion Age at Menarche 10 Obstetrics History GPAL:G 0 P 0 0 0 0 Past Encounters Encounter ID Performer Location Encounter Start Date Encounter Closed Date Diagnosis/Indication Diagnosis SNOMED-CT Code Diagnosis ICD10 Code Diagnosis Note [id number] Gisele Link MD [facility] - [address] [facility] [address] [place] [address] 10/15/2023 14:03:35 10/15/2023 15:02:36 Bilateral subjective pulsatile tinnitus of ears [id number] 531093 H93.A3 Explained to patient I would like her to have an MRA/MRV to rule out any venous malformati on or underlying condition. Will be in touch with those results when received, can see her back sooner if needed. Pain of temporomandibular joint [id number] M26.629 Health Concerns Section Related Observation LastModified by Organization Detai ls LastModified Time None Recorded Concern Status LastModified by Organization Details LastModified Time None Recorded Advance Directives Directive N: Payers Insurance Date Sequence Insurance Name Policy Number Policy Graves Covered Member ID Graves Member ID Guarantor Name 10/21/2023 1 [facility] [id number] Avis Mckinney [id number] Avis Mckinney Notes Date Note Type Note Provider Name and Address Organization Details Recorded Time 10/15/2023 text/html 10/15/23- patient is here for bilateral ear concerns. Patient states left ear has fluid on it all the time denies hearing loss; states sounds are muffled. Complains of a pulsating sound in her right ear. When she presses on her right sided neck the pulsating moves to the left side. States her symptoms have been present for about six months. she had a US of neck showed a cyst and an MRI done at [facility]. She saw ENT at [facility] and was told she had TMJ and to see dentist. She went to her dentist and because she has invisalign she is unable to wear a bite guard. Denies any family history of hearing loss. Gisele Link MD [address] [facility], [place], [address], [facility] [place] [facility] [place] & [place] 10/19/2023 16:24:09 OBGyn Episode No OBEpisode recorded.
[2024-09-06 09:57] VITALS: BMI 26.4
[2024-09-06] MEDS: VEDOLIZUMAB 300 MG in 0.9 % SODIUM CHLORIDE 250 ML 500 MG IV (10:26)
[2024-09-06] MEDS: SODIUM CHLORIDE 0.9% 50ML BAG 50 ML IV (10:26)
[2024-09-06 10:35] VITALS: BP 113/68; PULSE 87; RESP 17
[2024-09-06 10:41] LABS: Basophils % 0.2 % (0.1-2.0); Eosinophils # 0.1 Kmm3 (0.0-0.4); Eosinophils % 2.1 % (0.1-12.0); Hematocrit 38.8 % (37.0-47.0); Hemoglobin 12.3 g/dL (12.2-16.2); Immature Granulocytes # 0 10^3uL; Immature Granulocytes % 0 %; Lymphocytes # 1.7 K/mm3 (0.7-4.5); Lymphocytes % 38.5 % (10-50); Mean Corpuscular HGB Conc 31.7 g/dL (31.8-35.4); Mean Corpuscular Hemoglobin 25.1 pg (27.0-31.2); Mean Corpuscular Volume 79.2 fl (81-99); Mean Platelet Volume 11.9 fl (7.4-10.4); Monocytes # 0.2 K/mm3 (0.1-1.0); Monocytes % 4.6 % (1.7-9.3); Neutrophils # 2.4 K/mm3 (1.8-7.8); Neutrophils % 54.6 % (37.0-80.0); Nucleated Red Blood Cells # 0 10^3/uL; Nucleated Red Blood Cells % 0 %; Platelet Count 169 K/mm3 (142-424); Red Cell Distribution Width 14.5 % (11.5-17.5); Red Cell Distribution Width-SD 41.4 fL; White Blood Count 4.3 K/mm3 (4.8-10.8)
[2024-09-06 10:44] LABS: Alanine Aminotransferase 13 U/L (12-78); Albumin Level 4.4 g/dl (3.5-5.0); Albumin/Globulin Ratio 1.7 (1.1-1.8); Alkaline Phosphatase 56 U/L (38-126); Anion Gap 9.1 mEq/L (5-15); Aspartate Amino Transferase 20 U/L (14-36); Bilirubin,Total 0.4 mg/dl (0.2-1.3); Blood Urea Nitrogen 18 mg/dl (7-17); Calcium 8.7 mg/dl (8.4-10.2); Carbon Dioxide 30 mmol/L (22.0-30.0); Chloride 103 mmol/L (98-107); Creatinine Clearance Estimated 136 mL/min (50-200); Estimated Glomerular Filt Rate 117 ml/min (>60); GFR (African American) 141 ML/MIN (>60); Globulin 2.6 g/dL (1.3-3.2); Glucose 86 mg/dl (74-100); Potassium 4.1 mmoL/L (3.5-5.1); Sodium 138 mmol/L (136-145)
[2024-09-06 10:50] LABS: C-Reactive Protein 0.4 mg/L (0-4)
[2024-09-06 11:05] VITALS: BP 107/64; PULSE 82; RESP 16
== END 2024-09-06 11:15 | disposition home or self-care (01) ==
LOC: INF 09:53
PROVIDERS: PCP Internal Medicine Adolescent Medicine; Visit Provider Physician Assistant
DX: K50.114 Crohn's disease of large intestine with abscess (principal)
CPT/HCPCS: 36415; 80053; 85025; 86140; 96413; J3380

== ENCOUNTER 2024-11-01 09:12 | Outpatient (CLI) | payer OTHER, SELFPAY ==
--- OUTSIDE RECORDS SUMMARY | 2024-09-10 20:03 | XMS_ITS | Encounter Summary ---
Author Organization [facility] Address [address] [place] [address] Care Team Providers Care Buyer Liaison Name Role Phone Azeem Alegria MD Primary Care Provider [phone] Reason for Visit * Reason Comments Abdominal Pain Black or Bloody Stool Encounter Details Date Type Department Care Team (Latest Contact Info) Description 09/10/2024 8:03 PM EDT - 09/11/2024 12:10 AM EDT Emergency [facility] [address] [place] [address] Lenny Chapman MD [address] [place] [address] Crohn's disease with complication, unspecified gastrointestinal tract location (CMS/HCC) (Primary Dx) Discharge Disposition: Home or Self Care Social History Tobacco Use Types Packs/Day Years Used Date Smoking Tobacco: Never Passive Smoke Exposure: Past Smokeless Tobacco: Never Alcohol Use Standard Drinks/Week Comments Never 0 (1 standard drink = 0.6 oz pur e alcohol) PHQ-2 Answer Date Recorded Patient Health Questionnaire-2 Score 0 06/14/2024 PHQ-9 Answer Date Recorded Patient Health Questionnaire-9 Score 0 06/14/2024 PHQ-2A Answer Date Recorded Patient Health Questionnaire-2 Score 0 02/08/2023 Comments No Sex and Gender Information Value Date Recorded Sex Assigned at Female 09/10/2022 10:03 PM EDT Legal Sex Female 7:41 PM EDT Gender Identity Female 09/10/2022 10:03 PM EDT Sexual Orientation Not on file documented as of this encounter Last Filed Vital Signs Vital Sign Reading Time Taken Comments Blood Pressure 98/67 09/10/2024 11:51 PM EDT Pulse 84 09/10/2024 11:51 PM EDT Temperature 36.4 C (97.5 F) 09/10/2024 11:51 PM EDT Respiratory Rate 18 09/10/2024 11:51 PM EDT Oxygen Saturation 99% 09/10/2024 11:51 PM EDT Inhaled Oxygen Concentration - - Weight 68 kg (150 lb) 09/10/2024 7:35 PM EDT Height 154.9 cm (5' 1 ) 09/10/2024 7:35 PM EDT Body Mass Index 28.34 09/10/2024 7:35 PM EDT documented in this encounter Functional Status * Calculated C-SSRS Risk Score (Lifetime/Recent) Answer Date of Assessment Author No Risk Indicated 09/10/2024 8:34 PM EDT Romulo Saucedo, LI * Question Answer Date of Assessment Author 1. Wish to be (Past 1 Month) No 025 8:34 PM EDT Romulo Saucedo, LI 2. Non-Specific Active Suici jared Thoughts (Past 1 Month) No 09/10/2024 8:34 PM EDT Tae Saucedo RN 6. Suicidal Behavior (Lifetime) No 5 8:34 PM EDT Romulo Saucedo, RN documented as of this encounter Medications at Time of Discharge amoxicillin-clavula kathy (Augmentin) 875-125 MG tablet Take by mouth. dicyclomine (Bentyl) 10 MG capsuleIndications: Generalized abdominal pain Take 1 capsule (10 mg) by mouth 4 (four) times a day if needed (Abdominal pain). Take with meals and at bedtime 120 capsule 11 11/02/19 25 ferrous gluconate (Fergon) 324 (38 Fe) MG tabletIndications:L ow mean corpuscular volume (MCV) Take 1 tablet (324 mg) by mouth 1 (one) time each day with breakfast. 30 tablet 11 4 02/24/20 25 fluticasone (Flonase Allergy Relief) 50 MCG/ACT nasal spray Administer 2 sprays into each nostril daily. 4 phentermine (Adipex-P) 37.5 MG tablet Take 1 tablet (37.5 mg) by mouth 1 (one) time each day before breakfast. polyethylene glycol (Golytely) 236 g solution SEE PHARMACY NOTE FOR PT INSTRUCTIONS 4000 mL 4 Singulair 10 MG tablet Take 1 tablet (10 mg) by mouth every night. 3 vedolizumab (Entyvio) 300 MG injection Infuse 300mg (5ml) via IV catheter over 30 mins as directed 5 mL 5 4 ondansetron ODT (Zofran-ODT) 4 MG disintegrating tablet Dissolve 1 tablet on the tongue every 6 hours as needed for nausea or vomiting for up to 3 days. 12 tablet 5 09/14/19 25 oxyCODONE (Roxicodone) 5 MG immediate release tablet Take 1 tablet by mouth every 6 hours as needed for severe pain for up to 3 days. 12 tablet 5 09/14/19 25 documented as of this encounter Miscellaneous Notes * Eric Jj MD - 09/10/2024 11:54 PM EDT Images from the original note were not included. [id number] Crohn?s Disease Crohn?s disease is inflammation of the intestinal tract that comes and goes in flare-ups. This is achronic (long-term) illness. During a flare-up, intense abdominal (belly) pain and fever may be felt. Mucus, blood, or pus may appear in the stool. Between flare-ups, inflammation lessens and there usually are no symptoms. Crohn?s disease is a form of inflammatory bowel disease (IBD). Symptoms of Crohn's disease may include: ?? Abdominal cramps and pain ?? Diarrhea, sometimes bloody, occasionally alternating with constipation ?? Mucus in stools ?? Rectal bleeding ?? Rectal pain ?? Fever ?? Low energy ?? Decreased appetite and weight loss ?? Bloating or swollen abdomen ?? Nausea or vomiting ?? Joint aches ?? Sores in mouth ?? Red, painful eye problems ?? Rashes in anal area or other anal problems ?? Abscess (infection) or fistula (abnormal opening in the digestive tract) No one knows exactly what causes Crohn's disease, and there is no cure. The goal of treatment is tocontrol and relieve symptoms and prevent complications, so you can lead a full and active life. No single treatment works for everyone, but many things can be done to help. Diet Foods did not cause your Crohn's disease. But they can affect it. Unfortunately, there is no one diet that works for everyone. Keep a food log to figure out what you are sensitive to. Below are some things to try. ?? Eat more slowly and smaller amounts at a time, but more often. Remember, you can always eat moreif you are still hungry. But you can?t eat less once you?ve eaten too much. ?? High fiber foods are complicated. While they may help constipation and diarrhea, they can make the bloating, cramping, and gas worse. ?? If your Crohn's disease involves the small intestine, staying away from lactose-containing dairyproducts can help relieve some symptoms. ?? Try limiting spicy or fatty foods. Consume lean protein meats, such as fish and poultry. ?? Eat less sugar. ?? Bloating or passing excess gas may be controlled. Stay away from gassy foods, such as beans, cabbage, broccoli, and cauliflower. ?? Stay away from certain types of fruits and fruit juices, such as pear, peach, and prune. ?? Caffeine, alcohol, and stimulants may make symptoms worse. These include coffee, tea, sodas, energy drinks, and chocolate. Lifestyle Although stress does not cause Crohn's, it's often a factor in flare-ups. It can also affect how you feel about and cope with your health problem. ?? Look for things that seem to make your symptoms worse, such as stress and emotions. ?? Counseling can often help relieve stress. So can self-help measures, such as exercise, yoga, andmeditation. ?? Depression can be a part of this illness and antidepressants may be prescribed. This may actually help with diarrhea, constipation, and cramping, as well as depression. ?? Smoking doesn't cause Crohn's. But it can make the symptoms worse. It can also make the disease more severe and harder to control. It's very important to stop smoking if you have Crohn's disease. Medicines Your healthcare provider may prescribe medicines. If so, take them as directed. In Crohn's disease,long-term medicine is usually needed. This is because control of the disease is very important to prevent complications in the future. Control is called remission. The goal of treatment is remission.Complications can include continued inflammation, a blockage (obstruction), a communication betweendifferent organs (a fistula), a pocket of pus (abscess), and anal problems. This is why it's very important to follow your treatment plan carefully. For acute flare-ups, prescription medicine can be prescribed. Call your healthcare provider if you need this. ?? Ask your healthcare provider before taking any antidiarrheal medicines. ?? Medicines to control Crohn's disease include pills, intravenous infusions, and injections. Your healthcare provider can discuss the pros and cons of different medicines with you. ?? Don?t take anti-inflammatory medicines like ibuprofen or naproxen. ?? Consider nutritional supplements. This is especially true if the diarrhea is prolonged, or you aren't eating or are losing weight. If you need supplements, talk it over with your healthcare provider for the best recommendation. Stay away from herbal supplements. They are not evaluated by the FDA. Because of this, there is no wayto be certain of their safety and purity. Follow-up care Follow up with your healthcare provider, or as advised. If a stool sample was taken or cultures were done, you will be advised if your treatment plan needs to change. You may also need blood tests, procedures, or imaging studies. Call as directed for the results. Support Joining a support group for people with Crohn?s disease can be a source of useful information on how others are coping with this illness. They are available in person, on the phone, or on the Web. Contact the following resources for more information: ?? Crohn?s and Colitis [employer] [place] , www.ccfa.org ?? National Digestive Diseases Information Clearinghouse (NDDIC), www.digestive.niddk.nih.gov When to get medical advice Call your healthcare provider right away if any of the following occur: ?? Fever of 100.4??F (38??C) or higher, or as directed by your healthcare provider ?? Abdominal (belly) pain that doesn't get better when you take the usual measures ?? Mucus, pus, or small amounts of blood in the stool (dark or bright red) ?? Repeated vomiting ?? Abdominal swelling and pain that doesn?t go away after a few hours Call 911 Call 911 if any of the following occur: ?? Trouble breathing ?? Confusion ?? Extreme sleepiness or trouble waking up ?? Fainting or loss of consciousness ?? Rapid heart rate ?? Large amount of blood in the stool (dark or bright red) Last Reviewed Date: 2022 00:00:00 ?? [id number] The [employer]. All rights reserved. This information is not intended as a substitute for professional medical care. Always follow your healthcare professional's instructions. * ED Provider Notes - Eric Ko MD - 09/10/2024 7:31 PM EDT - HPI Chief Complaint Patient presents with Abdominal Pain Black or Bloody Stool PIT Note: Avis Mckinney is a 29 y.o. female with a h/o Chron's Disease who presents to the ED with Abdominal Pain. Pt complains of fire-like abdominal pain and bright red bloody stools since Wednesday. She also endorses new onset nausea that began while driving to the ED. She states that this does feellike her typical Chron's flair-up. Pt denies fever, chills, cough, chest pain, SOA. Patient History Medical History[1] Surgical History[2] Family History[3] Social History[4] Allergies: Allergies[5] Physical Exam ED Triage Vitals [09/10/24 1935] Temp Heart Rate Resp BP 37.1 ??C (98.8 ??F) 102 20 116/70 SpO2 Temp Source Heart Rate Source Patient Position 100 % Oral Monitor Sitting BP Location FiO2 (%) Right arm -- Physical Exam Constitutional: General: She is not in acute distress. HENT: Head: Normocephalic. Comments: No facial swelling Mouth/Throat: Mouth: Mucous membranes are moist. Pharynx: Oropharynx is clear. Cardiovascular: Rate and Rhythm: Normal rate. Pulmonary: Effort: Pulmonary effort is normal. No respiratory distress. Breath sounds: Normal air entry. Comments: Speaking full sentences. Symmetric chest rise Abdominal: General: There is no distension. Musculoskeletal: General: No deformity. Normal range of motion. Cervical back: Normal range of motion. Comments: Atraumatic, moves all extremities spontaneously Neurological: Mental Status: She is alert. Mental status is at baseline. Comments: Awake Psychiatric: Behavior: Behavior normal. Alexandra Coma Scale Score: 15 ED Course & MDM Assessment: 29 y.o. female presents to ED with complaint of abdominal pain. It should be noted that the chronicconditions includes crohn's, which currently is at goal therapy. This complicates the clinical picture because it Comorbidities: may be exacerbating symptoms Differential Diagnosis: flare, obstruction, gastroenteritis, kidney stone In order to fully explore the differential diagnosis the following treatments and tests were ordered: ED Course as of 09/11/24144 Sun September 10, 2024 2228 AST, Plasma: 14 [BP] ED Course User Index [BP] Eric Ko MD Clinical Impressions as of 09/11/24144 Crohn's disease with complication, unspecified gastrointestinal tract location (CMS/HCC) Social Determinates of Health Risks (including Economic Stability, Education and level of understanding, Healthcare access and quality and concerning social factors): None identified on this visit Ct with some general inflammation cw possible active crohn's anastomosis in place Cbc without leukocytosis or anemia Cmp without renal or hepatic dysfxn Crp negative Working dx is crohn's flare given absence of concern for torsion on ct ap with as well as some bloody stool and crampy abdominal pain with hx crohn's Patient able to tolerate po and felt comfortable going home with short course of pain meds with return precautions Ultimately, this patient was Was discharged Home (Discharge) The encounter diagnosis was Crohn's disease with complication, unspecified gastrointestinal tract location (CMS/HCC). . Patient was counseled on the diagnoses. Discharge medications if any are listed below. Listed medications are thought be either curative for listed diagnoses or will help control ongoing symptoms. Patient is requested to follow up with GI in order to obtain specialtycare. Instructions on follow up as well as precautions to return to the ER provided verbally by theEM provider, as well as written in patients discharge education packet. ED Prescriptions None - 09/10/2024, 7:41 PM Scribe Attestation: This note was dictated to me, Valdez Worthington, acting as a scribe for Dr. Armando Posada M.D. Attending Attestation: This documentation was recorded by Valdez Worthington acting as a scribe in my presence at the time of the encounter and accurately reflects the service I personally performed and thedecisions made by me. [1] Past Medical History: Diagnosis Date Anemia Conversions - Other Exposure to COVID-19 virus Conversions - Other History of COVID-19 Crohn's disease ([facility]/HCC) Encounter for sterilization Request for sterilization Maternal care for unspecified type scar from previous delivery Uterine scar from previous delivery, antepartum complication Other specified related conditions, unspecified trimester Rh negative status during PONV (postoperative nausea and vomiting) [2] Past Surgical History: Procedure Laterality Date SECTION, CLASSIC 12-17-2013, 01-18-2020 SECTION, LOW TRANSVERSE N/A section from [facility] [employer] [facility] COLON SURGERY N/A Colon surgery from [facility] COLOSTOMY ILEOSTOMY CLOSURE 01/27/2021 takedown of end ileostomy with ilealrectal anastomosis ORAL SURGERY N/A Oral Surgery Tooth Extraction from [facility] [facility] TOOTH EXTRACTION TUBAL LIGATION [3] Family History Problem Relation Name Age of Onset Other cancer Mother Donna Cancer Mother Donna [4] Tobacco Use Smoking status: Never Passive exposure: Past Smokeless tobacco: Never Vaping Use Vaping status: Never Used Substance Use Topics Alcohol use: Never Drug use: Never Comment: Drug use: No illicit drug use [5] No Known Allergies Eric Ko MD Resident 09/11/24 0149 Cosigned by Lenny Chapman MD at 09/15/2024 3:39 PM EDT Associated attestation - Lenny Chapman MD - 09/15/2024 3:39 PM EDT I saw and evaluated the patient with the resident/fellow. I discussed the case with the resident/fellow and agree with the findings and plan as documented. * ED Triage Notes - Becky Elena, RN - 09/10/2024 7:31 PM EDT Patient states she has crohns disease and has had bloody stool since Wednesday night. Also c/o abdominal pain it feels like my belly is on fire documented in this encounter Plan of Treatment Upcoming Encounters Date Type Department Care Team (Late st Contact Info) Description 11/08/2024 1:00 PM EDT Office Visit [facility] [address] [place] [id number] Yaritza Fernández, DO [address] [place] [address] 12/27/2024 8:40 AM EDT Office Visit [facility] [address] [place] [address] Yessica Rodgers, PA [address] [place] [address] documented as of this encounter Procedures Procedure Name Priority Date/Time Associated Diagnosis Comments CT ABDOMEN PELVIS W IV CONTRAST STAT 09/10/2024 9:42 PM EDT CBC WITH AUTO DIFFERENTIAL STAT 09/10/2024 7:54 PM EDT C-REACTIVE PROTEIN, PLASMA STAT 09/10/2024 7:54 PM EDT HCG, QUANTITATIVE STAT 09/10/2024 7:5 4 PM EDT COMPREHENSIVE METABOLIC PANEL, PLASMA STAT 09/10/2024 7:54 PM EDT documented in this encounter Results * CT Abdomen Pelvis w IV Contrast (09/10/2024 9:42 PM EDT) Anatomical Region Laterality Modality Abdomen, Pelvis Computed Tomogra phy Impressions 09/10/2024 10:28 PM EDT Postsurgical changes of prior partial colectomy with anastomosis. There are a few areas of small bowel wall thickening in the right upper quadrant. Additional mild wall thickening of the rectum. These findings could be related to underdistention, however active inflammatory bowel disease and/or colitis/enteritis is not excluded. New 3.3 cm left ovarian cyst. CRITICAL RESULT: No. COMMUNICATION: Per this written report. Preliminary report signed by Per Burciaga MD on 09/10/2024 10:13 PM By electronically signing this report, I, the attending physician, attest that I have personally reviewed the images/data for the above examination(s) and agree with the final edited report. Drafted by Per Burciaga MD on 09/10/2024 9:49 PM Final report signed by Clint Cordero MD on 09/10/2024 10:28 PM Narrative 09/10/2024 10:28 PM EDT CLINICAL INDICATION: Crohn's exacerbation TECHNIQUE: Imaging of the abdomen and pelvis was performed, from lung bases through pubic symphysis, using spiral technique, following administration of IV contrast, Omnipaque 300, 100 mL. Delayed (excretory phase) images were performed through the kidneys. Reformatted images in the coronal and sagittal planes were generated from the axial data set to facilitate diagnostic accuracy. Total DLP (Dose-Length Product): 528.02 mGy.cm. Please note: The reported value represents the total of one or more individual components during the CT acquisition on this date and at this time, and as such, the same value may appear in more than one CT report depending on the interpreting/reporting physicians. COMPARISON: CT abdomen pelvis 09/10/2022 FINDINGS: Lung Bases: The lung bases are clear. Liver/Gallbladder/Biliary system: The liver demonstrates homogeneous enhancement. Normal Gallbladder. No intra- or extra-hepatic biliary ductal dilatation. Spleen: The spleen enhances homogeneously. Pancreas: The pancreas enhances homogeneously. Adrenals: The adrenals are morphologically unremarkable. Kidneys: The kidneys demonstrate symmetric nephrogram and excretion. No renal or ureteral calculi. No hydronephrosis. Bowel/Mesentery: The small bowel loops are not dilated. Postsurgical changes of prior partial colectomy. No suspicious perianastomotic findings. There are a few areas of small bowel wall thickening in the right upper quadrant. Additional mild wall thickening of the rectum. No evidence of fistula formation. No abscess. Vessels/Lymph Nodes: The abdominal aorta is unremarkable. No lymphadenopathy within the abdomen or pelvis. 9 mm mesorectal lymph node previously 16 mm (series 3 image 202). Fluid Survey: No free fluid in the abdomen. No significant pelvic free fluid. Pelvis: The uterus is unremarkable. New 3.3 cm left ovarian cyst (series 3 image 206). Body Wall: Postsurgical changes of the ventral abdominal wall prior laparotomy and right ileostomy and closure. No acute findings. Bones: No acute fracture. Procedure Note Clint Cordero MD - 09/10/2024 CLINICAL INDICATION: Crohn's exacerbation TECHNIQUE: Imaging of the abdomen and pelvis was performed, from lung bases throughpubic symphysis, using spiral technique, following administration of IVcontrast, Omnipaque 300, 100 mL. Delayed (excretory phase) images wereperformed through the kidneys. Reformatted images in the coronal andsagittal planes were generated from the axial data set to facilitatediagnostic accuracy. Total DLP (Dose-Length Product): 528.02 mGy.cm. Please note: The reportedvalue represents the total of one or more individual components during theCT acquisition on this date and at this time, and as such, the same valuemay appear in more than one CT report depending on theinterpreting/reporting physicians. COMPARISON: CT abdomen pelvis 09/10/2022 FINDINGS: Lung Bases: The lung bases are clear. Liver/Gallbladder/Biliary system: The liver demonstrates homogeneousenhancement. Normal Gallbladder. No intra- or extra-hepatic biliary ductaldilatation. Spleen: The spleen enhances homogeneously. Pancreas: The pancreas enhances homogeneously. Adrenals: The adrenals are morphologically unremarkable. Kidneys: The kidneys demonstrate symmetric nephrogram and excretion. Norenal or ureteral calculi. No hydronephrosis. Bowel/Mesentery: The small bowel loops are not dilated. Postsurgicalchanges of prior partial colectomy. No suspicious perianastomoticfindings. There are a few areas of small bowel wall thickening in theright upper quadrant. Additional mild wall thickening of the rectum. Noevidence of fistula formation. No abscess. Vessels/Lymph Nodes: The abdominal aorta is unremarkable. Nolymphadenopathy within the abdomen or pelvis. 9 mm mesorectal lymph nodepreviously 16 mm (series 3 image 202). Fluid Survey: No free fluid in the abdomen. No significant pelvic freefluid. Pelvis: The uterus is unremarkable. New 3.3 cm left ovarian cyst (series 3image 206). Body Wall: Postsurgical changes of the ventral abdominal wall priorlaparotomy and right ileostomy and closure. No acute findings. Bones: No acute fracture. IMPRESSION: Postsurgical changes of prior partial colectomy with anastomosis. There are a few areas of small bowel wall thickening in the right upperquadrant. Additional mild wall thickening of the rectum. These findingscould be related to underdistention, however active inflammatory boweldisease and/or colitis/enteritis is not excluded. New 3.3 cm left ovarian cyst. CRITICAL RESULT: No. COMMUNICATION: Per this written report. Preliminary report signed by Per Burciaga MD on 09/10/2024 10:13 PM By electronically signing this report, I, the attending physician, attestthat I have personally reviewed the images/data for the aboveexamination(s) and agree with the final edited report. Drafted by Per Burciaga MD on 09/10/2024 9:49 PM Final report signed by Clint Cordero MD on 09/10/2024 10:28 PM us Armando Posada MD IMG CT PROCEDURES Final Result * hCG, Total Beta, Quantitative, Plasma (09/10/2024 7:54 PM EDT) hCG, Total Beta <1 <5 mIU/mL 8:45 PM EDT [facility] Blood Venous blood specimen / Unknown Venipuncture / Unknown 09/10/2024 7:54 PM EDT 09/10/2024 8:00 PM EDT Narrative [facility] - 09/10/2024 8:45 PM EDT Patients: Normal Range Premenopausal Female < 5 mIU/mL Male < 3 mIU/mL Postmenopausal Female < 8 mIU/mL The [employer] Elecsys hCG+beta assay is standardized to the 4th IS for Chorionic Gonadotropin. The combination of the specific monoclonal antibodies used in this assay recognizes the holo-hormone, nicked forms of hCG, the Beta-core Fragment and the free beta-subunit. Elevated hCG concentrations not associated with are found in patients with gestational trophoblastic disease and choriocarcinoma as well as germ cell, ovarian, bladder, pancreas, stomach, lung and liver tumors. Performed by the [employer] electrochemiluminescent immunoassay which is traceable to the 4th International Standard for hCG (NIBSC 75/589). Results obtained with different test methods or kits cannot be used interchangeably. us Armando Posada MD LAB BLOOD ORDERABLES Final Resul t Performing Organization Address [facility] Co de Phone Number [facility] [address] [place] [address] * C-Reactive protein (09/10/2024 7:54 PM EDT) Pathologist [facility] CRP, Plasma <3.0 <=8.0 mg/L 09/10/2024 8:45 PM EDT [facility] Blood Venous blood specimen / Unknown Venipuncture / Unknown 09/10/2024 7:54 PM EDT 09/10/2024 8:00 PM EDT Narrative [facility] - 09/10/2024 8:45 PM EDT This CRP test is appropriate for assessment of infection, systemic inflammation and/or tissue injury. To assess cardiovascular disease risk order high sensitivity CRP (CRPH). us Armando Posada MD LAB BLOOD ORDERABLES Final Resul t Performing Organization Address [facility] Co de Phone Number [facility] [address] [place] [address] * (ABNORMAL) CBC w/diff (09/10/2024 7:54 PM EDT) WBC Count 6.37 3.70 - 10.30 10*3/uL LAB HEMATOLOGY METHOD 09/10/2024 8:02 PM EDT [facility] RBC Count 4.70 3.90 - 5.20 10*6/uL LAB HEMATOLOGY METHOD 09/10/2024 8:02 PM EDT [facility] HGB 12.0 11.2 - 15.7 g/dL LAB HEMATOLOGY METHOD 09/10/2024 8:02 PM EDT [facility] HCT 36.8 34.0 - 45.0 % LAB HEMATOLOGY METHOD 09/10/2024 8:02 PM EDT [facility] Platelet Count 215 155 - 369 10*3/uL LAB HEMATOLOGY METHOD 09/10/2024 8:02 PM EDT [facility] MCV 78(L) 79 - 98 fL LAB HEMATOLOGY METHOD 09/10/2024 8:02 PM EDT [facility] MCH 25.5(L) 26.0 - 32.0 pg LAB HEMATOLOGY METHOD 09/10/2024 8:02 PM EDT [facility] MCHC 32.6 30.7 - 35.5 g/dL LAB HEMATOLOGY METHOD 09/10/2024 8:02 PM EDT [facility] RDW 14.4 11.5 - 14.5 % LAB HEMATOLOGY METHOD 09/10/2024 8:02 PM EDT [facility] MPV 12.3 8.8 - 12.5 fL LAB HEMATOLOGY METHOD 09/10/2024 8:02 PM EDT [facility] nRBC 0.0 <=0.0 per 100 WBCs LAB HEMATOLOGY METHOD 09/10/2024 8:02 PM EDT [facility] Differential Type Automated LAB HEMATOLOGY METHOD 09/10/2024 8:02 PM EDT [facility] Neutrophils % 57 % LAB HEMATOLOGY METHOD 09/10/2024 8:02 PM EDT [facility] Lymphocytes % 37 % LAB HEMATOLOGY METHOD 09/10/2024 8:02 PM EDT [facility] Monocytes % 5 % LAB HEMATOLOGY METHOD 09/10/2024 8:02 PM EDT [facility] Eosinophils % 1 % LAB HEMATOLOGY METHOD 09/10/2024 8:02 PM EDT [facility] Basophils % 0 % LAB HEMATOLOGY METHOD 09/10/2024 8:02 PM EDT [facility] Immature Granulocytes % 0 % LAB HEMATOLOGY METHOD 09/10/2024 8:02 PM EDT [facility] Neutrophils Absolute 3.59 1.60 - 6.10 10*3/uL LAB HEMATOLOGY METHOD 09/10/2024 8:02 PM EDT [facility] Lymphocytes Absolute 2.37 1.20 - 3.90 10*3/uL LAB HEMATOLOGY METHOD 09/10/2024 8:02 PM EDT [facility] Monocytes Absolute 0.29(L) 0.30 - 0.90 10*3/uL LAB HEMATOLOGY METHOD 09/10/2024 8:02 PM EDT [facility] Eosinophils Absolute 0.09 0.00 - 0.50 10*3/uL LAB HEMATOLOGY METHOD 09/10/2024 8:02 PM EDT [facility] Basophils Absolute 0.02 0.00 - 0.10 10*3/uL LAB HEMATOLOGY METHOD 09/10/2024 8:02 PM EDT [facility] Immature Granulocytes Absolute 0.01 0.00 - 0.06 10*3/uL LAB HEMATOLOGY METHOD 09/10/2024 8:02 PM EDT [facility] Blood Venous blood specimen / Unknown Venipuncture / Unknown 09/10/2024 7:54 PM EDT 09/10/2024 8:00 PM EDT Narrative [facility] - 09/10/2024 8:02 PM EDT Therapeutic decision making should be based on absolute values, rather than percentages. us Armando Posada MD LAB BLOOD ORDERABLES Final Resul t [facility] [address] [place] [address] * (ABNORMAL) CMP (09/10/2024 7:54 PM EDT) Glucose, Plasma 100(H) 74 - 99 mg/dL 09/10/2024 8:45 PM EDT [facility] BUN, Plasma 12 7 - 21 mg/dL 09/10/2024 8:45 PM EDT [facility] Creatinine, Plasma 0.53(L) 0.60 - 1.10 mg/dL 09/10/2024 8:45 PM EDT [facility] BUN/Creatinine Ratio 23 09/10/2024 8:45 PM EDT [facility] Sodium, Plasma 139 136 - 145 mmol/L 09/10/2024 8:45 PM EDT [facility] Potassium, Plasma 4.0 3.6 - 4.9 mmol/L 09/10/2024 8:45 PM EDT [facility] Chloride, Plasma 102 97 - 107 mmol/L 09/10/2024 8:45 PM EDT [facility] CO2, Plasma 23 22 - 29 mmol/L 09/10/2024 8:45 PM EDT [facility] Anion Gap 14 6 - 16 mmol/L 09/10/2024 8:45 PM EDT [facility] Total Calcium, Plasma 9.0 8.9 - 10.2 mg/dL 09/10/2024 8:45 PM EDT [facility] Total Protein 7.5 6.3 - 7.9 g/dL 09/10/2024 8:45 PM EDT [facility] Albumin, Plasma 4.6 3.5 - 5.2 g/dL 09/10/2024 8:45 PM EDT [facility] AST, Plasma 14 10 - 35 U/L 09/10/2024 8:45 PM EDT [facility] ALT, Plasma 11 10 - 35 U/L 09/10/2024 8:45 PM EDT [facility] Alkaline Phosphatase, Plasma 72 35 - 104 U/L 09/10/2024 8:45 PM EDT [facility] Total Bilirubin, Plasma <0.2(L) 0.2 - 1.1 mg/dL 09/10/2024 8:45 PM EDT [facility] eGFRcr 127.0 mL/min/1.7 3m*2 09/10/2024 8:45 PM EDT [facility] Comment:Reported eGFRcr in m L/min/1.73m2 is based the CKD-EPI 2020 equation that does not use a race coefficient. Blood Venous blood specimen / Unknown Venipuncture / Unknown 09/10/2024 7:54 PM EDT 09/10/2024 8:00 PM EDT us Armando Posada MD LAB BLOOD ORDERABLES Final Resul t [facility] [address] [place] [address] documented in this encounter Visit Diagnoses Diagnosis Crohn's disease with complication, unspecified gastrointestinal tract location (CMS/HCC)- Primary documented in this encounter Administered Medications Inactive Administered Medications - up to 3 most recent administrations Medication Order MAR Action Action Date Dose Rate Site iohexol (OMNIPaque) 300 MG/ML injection 100 mL 100 mL, Intravenous, Once in imaging, 1 dose, Starting on 09/10/24 at 2136, Until 09/10/24 at 2135, Routine, Imaging Protocol Orders Given 09/10/2024 9:36 PM EDT 100 mL lactated Ringer's infusion 1,000 mL 1,000 mL, Intravenous, Once, 1 dose, On 09/10/24 at 1940, STAT New Bag 09/10/2024 7:57 PM EDT 1,000 mL morphine PF 4 mg 4 mg, Intravenous, Once, 1 dose, On 09/10/24 at 1940, STAT Given 09/10/2024 7:58 PM EDT 4 mg morphine PF 4 mg 4 mg, Intravenous, Once, 1 dose, On 09/10/24 at 2230, STAT Given 09/10/2024 10:33 PM EDT 4 mg ondansetron (Zofran) injection 4 mg 4 mg, Intravenous, Once, 1 dose, On 09/10/24 at 1940, STAT Given 09/10/2024 7:58 PM EDT 4 mg ondansetron ODT (Zofran-ODT) disintegrating tablet 4 mg 4 mg, Oral, Once, 1 dose, On 09/10/24 at 2355, STAT Given 09/11/2024 12:01 AM EDT 4 mg documented in this encounter Active and Recently Administered Medications Times are shown in EDT. Scheduled Medication Order 09/09/2024 09/10/2024 09/11/2024 iohexol (OMNIPaque) 300 MG/ML injection 100 mL (COMPLETED) 100 mL, Intravenous, Once in imaging, 1 dose, Starting on 09/10/24 at 2136, Until 09/10/24 at 2135, Routine, Imaging Protocol Orders 2135 (Given - Provider: Mikhail Paredes) lactated Ringer's infusion 1,000 mL (COMPLETED) 1,000 mL, Intravenous, Once, 1 dose, On 09/10/24 at 1940, STAT 7 (New Bag - Provider: Dannielle Ramírez)2100 (Stopped - Provider: Romulo Saucedo RN) morphine PF 4 mg (COMPLETED) 4 mg, Intravenous, Once, 1 dose, On 09/10/24 at 1940, STAT 1957 (Given - Provider: Dannielle Ramírez) morphine PF 4 mg (COMPLETED) 4 mg, Intravenous, Once, 1 dose, On 09/10/24 at 2230, STAT 2233 (Given - Provider: Romulo Saucedo RN) ondansetron (Zofran) injection 4 mg (COMPLETED) 4 mg, Intravenous, Once, 1 dose, On 09/10/24 at 1940, STAT 1957 (Given - Provider: Dannielle Ramírez) ondansetron ODT (Zofran-ODT) disintegrating tablet 4 mg (COMPLETED) 4 mg, Oral, Once, 1 dose, On 09/10/24 at 2355, STAT 0001 (Given - Provid er: Romulo Saucedo RN) documented in this encounter Additional Health Concerns Assessment Noted Time PHQ-9 Depression Total Score: 0 06/14/19 8:02 AM EST A fall risk assessment has been complete d for the patient 06/14/2024 8:03 AM EST A Body Mass Index follow-up plan has been documented for the patient 06/14/2024 9:16 AM EST documented as of this encounter Care Teams Buyer Liaison Relationship Specialty Start Date End Date Azeem Alegria MD [address] [place] [address] [place] [id number] PCP - General Internal Medicine 01/25/23 documented as of this encounter
--- OUTSIDE RECORDS SUMMARY | 2024-09-25 08:40 | XMS_ITS | Encounter Summary ---
Author Organization [facility] Address [address] [place] [address] Care Team Providers Care Surface Supply Breathing Apparatus Name Role Phone Azeem Alegria MD Primary Care Provider + [phone] Reason for Referral * Consultation (Routine) - Authorized Specialty Diagnoses / Procedures Referred By Wyatt templeton Referred To Contact Diagnoses Crohn's disease of large intestine with abscess (CMS/HCC) Yessica Rodgers PA [address] [facility] [address] [place] [phone] Phone: tel: fax: Referral ID Status Reason Start Date Expiration Date V isits Requested Visits Authorized [id number] Authorized 09/25/2024 03/27/2026 1 1 * Imaging (Routine) - Authorized Specialty Diagnoses / Procedures Referred By Wyatt templeton Referred To Contact Gastroenterology Diagnoses Crohn's disease of large intestine with abscess (CMS/HCC) Procedures Flexible Sigmoidoscopy Yessica Rodgers PA [address] [facility] [address] [place] [address] Phone: tel: fax: [facility] ([address] [address] Phone: tel: Referral ID Status Reason Start Date Expiration Date Visits Requested Visits Authorized [id number] Authorized Specialty Services Required 09/25/2024 03/27/2026 1 1 Reason for Visit * Reason Comments Crohn's Disease Encounter Details Date Type Department Care Team (Late st Contact Info) Description 09/25/2024 8:40 AM EDT Office Visit [facility] Medicine Specialties [address] [place] [address] Yessica Rodgers PA [address] [place] [address] Crohn's disease of large intestine with abscess (CMS/HCC) (Primary Dx); Long-term current use of vedolizumab; H/O colectomy Social History Tobacco Use Types Packs/Day Years Used Date Smoking Tobacco: Never Passive Smoke Exposure: Past Smokeless Tobacco: Never Alcohol Use Standard Drinks/Week Comments Never 0 (1 standard drink = 0.6 oz pur e alcohol) PHQ-2 Answer Date Recorded Patient Health Questionnaire-2 Score 0 09/25/2024 PHQ-9 Answer Date Recorded Patient Health Questionnaire-9 Score 0 09/25/2024 PHQ-2A Answer Date Recorded Patient Health Questionnaire-2 Score 0 02/08/2023 Comments No Sex and Gender Information Value Date Recorded Sex Assigned at Female 09/10/2022 10:03 PM EDT Legal Sex Female 7:41 PM EDT Gender Identity Female 09/10/2022 10:03 PM EDT Sexual Orientation Not on file documented as of this encounter Last Filed Vital Signs Vital Sign Reading Time Taken Comments Blood Pressure - - Pulse - - Temperature - - Respiratory Rate - - Oxygen Saturation - - Inhaled Oxygen Concentration - - Weight 67.1 kg (148 lb) 09/25/2024 8:34 AM EDT Height 154.9 cm (5' 1 ) 09/25/2024 8:34 AM EDT Body Mass Index 27.96 09/25/2024 8:34 AM EDT documented in this encounter Functional Status * Over the past 2 weeks, how often have you been bothered by any of the following problems? Question Answer Date of Assessment Author Little interest or pleasure in doing things Not at all 09/25/2024 8:34 AM Maru Zavaleta Feeling down, depressed, or hopeless Not at all 09/25/2024 8:34 AM Maru Zavaleta Patient Health Questionnaire -2 Score 0 09/25/2024 8:34 AM Maru Zavaleta * Question Answer Date of Assessment Author Trouble falling or staying asleep, or sleeping too much Not at all 09/25/2024 8:34 AM Maru Zavaleta Feeling tired or having lisa le energy Not at all 09/25/2024 8:34 AM Maru Zavaleta Poor appetite or overeating Not at all 09/25/2024 8: 34 AM Maru Zavaleta Feeling bad about yourself - or that you are a failure or have let yourself or your family down Not at all 09/25/2024 8:34 AM EDT Maru Mc Trouble concentrating on thi ngs, such as reading the newspaper or watching television Not at all 09/25/2024 8:34 AM Maru Zavaleta Moving or speaking so slowly that other people could have noticed? Or the opposite - being so fidgety or restless that you have been moving around a lot more than usual. Not at all 09/25/2024 8:34 AM Maru Zavaleta Thoughts that you would be b sebastián off or hurting yourself in some way Not at all 09/25/2024 8:34 AM Maru Zavaleta Patient Health Questionnaire -9 Score 0 09/25/2024 8:34 AM Maru Zavaleta * If you checked off any problems on this questionnaire so far, Question Answer Date of Assessment Author How difficult have these problems made it for you to do your work, take care of things at home, or get along with other people? Not difficult at all 09/25/2024 8:34 AM Maru Zavaleta documented as of this encounter Miscellaneous Notes * Assessment & Plan Note - Yessica Rodgers PA - 09/25/2024 8:40 AM EDT Associated Problem(s): Crohn's disease of large intestine with abscess (CMS/HCC) - Diagnostic colonoscopy performed by Dr. Alejandro Wayne 06/21/2020 showed moderate to severe Crohn's colitis with rectal sparing. She was started on mesalamine and plan was to initiate biologic therapy;however, Ms. Mckinney unfortunately experienced colon perforation with pelvic abscess cavity and peritonitis. 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 Her post- operative coursewas complicated by recurrent pelvic abscess for which she had CT guided drain placement on 08/06/2020. She most recently underwent ileostomy closure 01/27/2021. - Symptoms overall improved with vedolizumab. However, given recent increase in abdominal pain and rectal bleeding starting two weeks prior to most recent infusion and leading to ED visit, we discussed option of shortening dosing interval of vedolizumab to every 4 weeks or changing to subcutaneous a dministration every 14 days. Avis's preference is to continue IV infusions as previous use of injectable medications was often delayed due to issues with her specialty pharmacy. - Routine monitoring labs are being completed and reviewed with each infusion to evaluate for potential leukopenia, anemia, thrombocytopenia, transaminitis, hypoalbuminemia, inflammation, and diseaseactivity. Most recent infusion labs from 09/06/2024 noted leukopenia raising concern for potential viral illness leading to Crohn's flare. Labs in ED on 09/10/2024 indicated resolution of leukopenia; mildly decreased MCV. Continue ferrous gluconate. - Most recent flexible sigmoidoscopy 10/13/2023 showed moderately active proctitis. Will plan to repeat to help assess response to veodlizumab. - Fecal calprotectin 08/2023 elevated at 1360 and then up-trending to 3180 as of 02/2024 after increasing dosing interval of ustekinumab. She has since changed treatment to vedolizumab which is offering symptom improvement. Encouraged her to complete repeat calprotectin as previously ordered to helpassess response to vedolizumab. - Follow-up in 3 months or sooner if needed. Orders: Calprotectin, Fecal by Immunoassay; Future Flexible Sigmoidoscopy; Future Follow Up GI; Future * Progress Notes - Yessica Rodgers PA - 09/25/2024 8:40 AM EDT Telehealth Visit Subjective Patient ID: Avis Mckinney is a 29 y.o. female. Chief Complaint Patient presents with Crohn's Disease HPI Ms. Mckinney is a very pleasant 29 year old female, who is seen via [facility] today for follow-up of penetrating Crohn's colitis. Avis reports undergoing colonoscopy with Dr. Alejandro Wayne 06/21/2020 after she developed symptoms of blood in stool and abdominal pain. The colonoscopy demonstrated moderate to severe Crohn's colitis with rectal sparing. She was started on oral mesalamine and she reports plan was to begin biologic therapy. Unfortunately, Avis experienced perforated colonwith pelvic abscess cavity and peritonitis resulting in open total colectomy with end ileostomy 07/06/20. Her post- operative course was complicated by intraabdominal abscess requiring drain placement07/19/2020. The drain was removed 07/31/2020 and she then experienced recurrent pelvic abscess requiring CT guided drain placement on 08/06/2020. Avis received ustekinumab induction infusion on 09/11/2020 and then 90 mg every 8 weeks. She underwent flexible sigmoidoscopy with Dr. Castillo 12/18/2020 which showed healthy appearing rectum with minimal evidence of Crohn's disease; biopsies showed active IBD. She then underwent closure of ileostomy 01/27/2021. Most recent flexible sigmoidoscopy 10/13/2023 showed moderately active proctitis. She then received re-induction ustekinumab infusion and then maintenance dosing every 4 weeks. Her calprotectin continued to up-trend, so treatment has since been changed to vedolizumab of which she is receiving 300 mg every 8 weeks. Today Avis reports feeling better. She reports about 2 weeks prior to most recent vedolizumabinfusion on 09/06/2024 she started feeling unwell. She reports initially feeling better following infusion but then developed acute onset rectal bleeding leading her to present to the ED on 09/10/2024.CT scan of A/P in ED showed A few areas of small bowel wall thickening in the right upper quadrant. Additional mild wall thickening of the rectum. These findings could be related to underdistention,however active inflammatory bowel disease and/or colitis/enteritis is not excluded. Today Avis states rectal bleeding has resolved. She is not experiencing any abdominal pain currently. Her bowel frequency has improved to 2-3 BM/day. She reports occasional nausea without emesis.She denies decreased appetite, unintentional weight loss, and fevers. Her energy level is low. She denies any family history of IBD or colon cancer. Avis is a non- smoker. The following portions of the chart were reviewed this encounter and updated as appropriate: Tobacco Allergies Meds Problems Med Hx Surg Hx Fam Hx Review of Systems Constitutional: Positive for fatigue. Negative for appetite change, chills, fever and unexpected weight change. Gastrointestinal: Positive for nausea. Negative for abdominal pain, blood in stool, constipation, diarrhea and vomiting. All other systems reviewed and are negative. Objective Physical Exam Vitals reviewed. Constitutional: Appearance: Normal appearance. She is normal weight. HENT: Head: Normocephalic. Nose: Nose normal. Pulmonary: Effort: Pulmonary effort is normal. Neurological: Mental Status: She is alert and oriented to person, place, and time. Psychiatric: Mood and Affect: Mood normal. Behavior: Behavior normal. Thought Content: Thought content normal. Judgment: Judgment normal. Lab Results Component Value Date/Time AST 14 09/10/20241953 ALT 11 09/10/20241953 CALPROTECTIN 1330 (H) 09/11/2022 1320 CRP <3.0 09/10/20241953 ALBUMIN 4.6 09/10/20241953 Lab Results Component Value Date/Time WBC 6.37 09/10/20241953 HGB 12.0 09/10/20241953 MCV 78 (L) 09/10/20241953 MCV 84 08/20/2020 1147 MCH 25.5 (L) 09/10/20241953 PLT 215 09/10/20241953 Lab Results Component Value Date/Time BUN 12 09/10/20241953 CREATININE 0.53 (L) 09/10/20241953 NA 139 09/10/20241953 K 4.0 09/10/20241953 CL 102 09/10/20241953 BILITOT <0.2 (L) 09/10/20241953 Assessment/Plan Assessment & Plan Crohn's disease of large intestine with abscess (CMS/HCC) - Diagnostic colonoscopy performed by Dr. Alejandro Wayne 06/21/2020 showed moderate to severe Crohn's colitis with rectal sparing. She was started on mesalamine and plan was to initiate biologic therapy;however, Ms. Mckinney unfortunately experienced colon perforation with pelvic abscess cavity and peritonitis. 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 Her post- operative coursewas complicated by recurrent pelvic abscess for which she had CT guided drain placement on 08/06/2020. She most recently underwent ileostomy closure 01/27/2021. - Symptoms overall improved with vedolizumab. However, given recent increase in abdominal pain and rectal bleeding starting two weeks prior to most recent infusion and leading to ED visit, we discussed option of shortening dosing interval of vedolizumab to every 4 weeks or changing to subcutaneous a dministration every 14 days. Avis's preference is to continue IV infusions as previous use of injectable medications was often delayed due to issues with her specialty pharmacy. - Routine monitoring labs are being completed and reviewed with each infusion to evaluate for potential leukopenia, anemia, thrombocytopenia, transaminitis, hypoalbuminemia, inflammation, and diseaseactivity. Most recent infusion labs from 09/06/2024 noted leukopenia raising concern for potential viral illness leading to Crohn's flare. Labs in ED on 09/10/2024 indicated resolution of leukopenia; mildly decreased MCV. Continue ferrous gluconate. - Most recent flexible sigmoidoscopy 10/13/2023 showed moderately active proctitis. Will plan to repeat to help assess response to veodlizumab. - Fecal calprotectin 08/2023 elevated at 1360 and then up-trending to 3180 as of 02/2024 after increasing dosing interval of ustekinumab. She has since changed treatment to vedolizumab which is offering symptom improvement. Encouraged her to complete repeat calprotectin as previously ordered to helpassess response to vedolizumab. - Follow-up in 3 months or sooner if needed. Orders: Calprotectin, Fecal by Immunoassay; Future Flexible Sigmoidoscopy; Future Follow Up GI; Future Long-term current use of vedolizumab - Annual TB screening is due, so will update with next set of infusion labs. - Recommended keeping all adult immunizations up-to-date. H/O colectomy Telehealth Statement Patient Verification Patient identity has been confirmed using name and date of ? Yes Authorizations and Agreements/Telemedicine Consent sent and consent confirmed? Yes Patient Location: Home/Other Home Patient confirms they are physically located in [place]? Yes If the patient is not physically located in [place], the provider has confirmed with Legal thatthe provider is authorized to provide services in patient's stated location? N/A Provider Location: home Audio and video or audio only? Audio and video Total visit time: A total of 40 minutes was spent discussing patient's symptoms and plan of care, reviewing records, entering orders, coordinating care, and documenting. documented in this encounter Plan of Treatment Upcoming Encounters Date Type Department Care Team (Late st Contact Info) Description 11/08/2024 1:00 PM EDT Office Visit [address] [phone] Yaritza Fernández L, DO [address] [place] [phone] 12/27/2024 8:40 AM EDT Office Visit [facility] Medicine Specialties [address] [place] [phone] Yessica Rodgers PA [address] [place] [address] Scheduled Orders Name Type Priority Associated Diagnoses Orde r Schedule Calprotectin, Fecal by Immunoassay Lab Routine Crohn's disease of large intestine with abscess (CMS/HCC) Expected: 09/25/2024 (Approximate), Expires: 03/27/2026 Flexible Sigmoidoscopy Endoscopy Routine Crohn's disease of large intestine with abscess (CMS/HCC) Expected: 09/25/2024, Expires: 03/29/2026 Scheduled Referrals Name Type Priority Associated Diagnoses Orde r Schedule Follow Up GI Outpatient Referral Routine Crohn's disease of large intestine with abscess (CMS/HCC) Expected: 12/26/2024, Expires: 10/25/2025 documented as of this encounter Visit Diagnoses Diagnosis Crohn's disease of large intestine with abscess (CMS/HCC)- Primary Long-term current use of vedolizumab H/O colectomy documented in this encounter Additional Health Concerns Assessment Noted Time PHQ-9 Depression Total Score: 0 09/26/19 25 8:34 AM EDT A fall risk assessment has been complete d for the patient 09/25/2024 8:34 AM EDT A Body Mass Index follow-up plan has been documented for the patient 09/25/2024 9:21 AM EDT documented as of this encounter Care Teams Surface Supply Breathing Apparatus Relationship Specialty Start Date End Date Azeem Alegria MD [address] [place] [address] PCP - General Internal Medicine 01/25/23 documented as of this encounter
--- OUTSIDE RECORDS SUMMARY | 2024-11-01 09:14 | XMS_ITS | Encounter Summary ---
Author Organization [facility] Address [address] [place] [address] Care Team Providers Care Manager Of Finance Name Role Phone Azeem Alegria MD Primary Care Provider + [phone] Reason for Visit * Reason Onset Date Comments Entyvio q4w 09/25/2024 Encounter Details Date Type Department Care Team (Late st Contact Info) Description 09/25/2024 Telephone [facility] [address] [place] [address] Yong Blanco, PharmD Entyvio q4w Social History Tobacco Use Types Packs/Day Years [...] on file documented as of this encounter Functional Status * Over the [...] down Not at all 09/25/2024 8:34 AM Maru Hernandez Trouble concentrating on thi ngs, such as [...] as of this encounter Miscellaneous Notes * Telephone Encounter - Kavita Luna RN - 10/18/2024 8:06 AM EDT Updated IBD Labwork Monitoring List * Telephone Encounter - Loly Jay PharmD - 10/17/2024 1:57 PM EDT Patient has been approved to receive infusion treatment at outside facility. [facility] will follow up with facility to make sure patient has been scheduled and received first dose. Specialty Medication: Entyvio Filling Pharmacy/SOC: [facility] * Telephone Encounter - Abigail Joya CPhT - 10/17/2024 12:05 PM EDT Infusion Authorization Information Specialty Medication: Entyvio J-Code: J3380 Quantity and Units of Measure Authorized: 300 mg every 28 days Day Supply: 112 Diagnosis Code: K50.114 Insurance Name: [employer] Insurance Type: Commercial Where did you submit request and how (portal/fax/phone number): Phone Authorization/Reference Number: [id number] Approval Dates: 10/11/24 - 01/31/25 Filling Pharmacy/SOC: [facility] * Telephone Encounter - Abigail Joya CPhT - 10/11/2024 8:35 AM EDT *FYI - PA was denied for SOC. Resubmitted for reconsideration since patient is ok with trying [facility]. PA submitted via phone to [facility] for Entyvio to be administered by [facility]. Clinicals faxed. Ref# [id number] Rep Name: Erica Marrero Fx: [phone] * Telephone Encounter - Kavita Luna RN - 09/26/2024 7:30 AM EDT Updated IBD Labwork Monitoring List * Telephone Encounter - Yong Blanco, PharmD - 09/25/2024 9:46 AM EDT ----- Message from IRIS Patel sent at 09/25/2024 9:06 AM EDT ----- Regarding: vedolizumab Can we please work on approval for vedolizumab infusions every 4 weeks? Also, can we please update TB screening with next infusion? Most recent infusion was 09/06/2024. Thank you! documented in this encounter Plan of Treatment Upcoming Encounters Date Type Department Care Team (Late st Contact Info) Description 11/08/2024 1:00 PM EDT Office Visit [facility] [address] [place] [phone] Yaritza Fernández DO [address] [place] [phone] 12/27/2024 8:40 AM EDT Office Visit [facility] [address] [place] [address] Yessica Rodgers PA [address] [place] [address] documented as of this encounter Visit Diagnoses Not on filedocumented in this encounter Additional Health Concerns Assessment Noted Time PHQ-9 Depression Total Score: 0 09/26/19 25 8:34 AM EDT A fall risk assessment has been complete d for the patient 09/25/2024 8:34 AM EDT A Body Mass Index follow-up plan has been documented for the patient 09/25/2024 9:21 AM EDT documented as of this encounter Care Teams Manager Of Finance Relationship Specialty Start Date End Date Azeem Alegria MD [address] [place] [address] PCP - General Internal Medicine 01/25/23 documented as of this encounter
--- OUTSIDE RECORDS SUMMARY | 2024-11-01 09:14 | XMS_ITS | Encounter Summary ---
Author Organization [facility] Address [address] [place] [address] Care Team Providers Care Work Study Student Name Role Phone Azeem Alegria MD Primary Care Provider [phone] Encounter Details Date Type Department Care Team (Late st Contact Info) Description 09/25/2024 Orders Only [facility] [address] [place] [address] Yessica Rodgers PA [address] [place] [address] Crohn's disease of large intestine with abscess (CMS/HCC) (Primary Dx) Social History Tobacco Use Types Packs/Day Years [...] Maru Zavaleta documented as of this encounter Plan of Treatment Upcoming Encounters Date Type Department Care Team (Late st Contact Info) Description 11/08/2024 1:00 PM EDT Office Visit [facility] [address] [place] [address] Yaritza Fernández, [address] [place] [phone] 12/27/2024 8:40 AM EDT Office Visit [facility] [address] [place] [address] Yessica Rodgers, PA [address] [place] [address] documented as of this encounter Visit Diagnoses Diagnosis Crohn's disease of large intestine with abscess (CMS/HCC)- Primary documented in this encounter Additional Health Concerns Assessment Noted Time PHQ-9 Depression Total Score: 0 09/26/19 25 8:34 AM EDT A fall risk assessment has been complete d for the patient 09/25/2024 8:34 AM EDT A Body Mass Index follow-up plan has been documented for the patient 09/25/2024 9:21 AM EDT documented as of this encounter Care Teams Work Study Student Relationship Specialty Start Date End Date Azeem Alegria MD [address] [place] [address] PCP - General Internal Medicine 01/25/23 documented as of this encounter
--- OUTSIDE RECORDS SUMMARY | 2024-11-01 09:14 | XMS_ITS | Encounter Summary ---
Author Organization [facility] Address [address] [place] [address] Care Team Providers Care Ignition Specialist Name Role Phone Azeem Alegria MD Primary Care Provider [phone] Encounter Details Date Type Department Care Team (Late st Contact Info) Description 09/20/2024 Results Follow-Up [facility] [address] [place] [address] Yessica Rodgers PA [address] [place] [address] Social History Tobacco Use Types Packs/Day Years [...] on file documented as of this encounter Plan of Treatment Upcoming Encounters Date Type Department Care Team (Late st Contact Info) Description 11/08/2024 1:00 PM EDT Office Visit [facility] [address] [place] [address] Yaritza Fernández, [address] [place] [phone] 12/27/2024 8:40 AM EDT Office Visit [facility] [address] [place] [address] Yessica Rodgers, IRIS [address] [place] [address] documented as of this encounter Visit Diagnoses Not on filedocumented in this encounter Additional Health Concerns Assessment Noted Time PHQ-9 Depression Total Score: 0 06/14/19 25 8:02 AM EST A fall risk assessment has been complete d for the patient 06/14/2024 8:03 AM EST A Body Mass Index follow-up plan has been documented for the patient 06/14/2024 9:16 AM EST documented as of this encounter Care Teams Ignition Specialist Relationship Specialty Start Date End Date Azeem Alegria MD [address] [place] [address] PCP - General Internal Medicine 01/25/23 documented as of this encounter
--- OUTSIDE RECORDS SUMMARY | 2024-11-01 09:14 | XMS_ITS | Clinical Summary ---
Author Organization [facility] Address [address] [place] [address] Care Team Providers Care Steamer Tender Name Role Phone Azeem Alegria MD Primary Care Provider + [phone] Allergies No known active allergies Medications amoxicillin-cla vulanate (Augmentin) 875-125 MG tablet Take by mouth. Activ e phentermine (Adipex-P) 37.5 MG tablet Take 1 tablet (37.5 mg) by mouth 1 (one) time each day before breakfast. Active fluticasone (Flonase Allergy Relief) 50 MCG/ACT nasal spray Administer 2 sprays into each nostril daily. 4 Active Singulair 10 MG tablet Take 1 tablet (10 mg) by mouth every night. 3 Active polyethylene glycol (Golytely) 236 g solution SEE PHARMACY NOTE FOR PT INSTRUCTIONS 4000 mL 4 Active Additional Information Patient not taking.Reported on 09/25/2024 dicyclomine (Bentyl) 10 MG capsuleIndicati ons:Generalized abdominal pain Take 1 capsule (10 mg) by mouth 4 (four) times a day if needed (Abdominal pain). Take with meals and at bedtime 120 capsule 4 11/02/19 25 Active ferrous gluconate (Fergon) 324 (38 Fe) MG tabletIndicatio ns:Low mean corpuscular volume (MCV) Take 1 tablet (324 mg) by mouth 1 (one) time each day with breakfast. 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 Alejandro Wayne 06/21/2020 showed moderate to severe Crohn's colitis with rectal sparing. She was started on mesalamine and plan was to initiate biologic therapy; however, Ms. Mckinney unfortunately experienced colon perforation with pelvic abscess cavity and peritonitis. 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 Her post- operative course was complicated by recurrent pelvic abscess for which [...] every 4 weeks or changing to subcutaneous administration every 14 days. Avis's preference is to continue IV infusions as previous use of injectable medications was often delayed due to issues with her specialty pharmacy. - Routine monitoring labs are being completed and reviewed with each infusion to evaluate for potential leukopenia, anemia, thrombocytopenia, transaminitis, hypoalbuminemia, inflammation, and disease activity. Most recent infusion labs from 09/06/2024 noted [...] complete repeat calprotectin as previously ordered to help assess response to vedolizumab. - Follow-up in 3 months or sooner if needed. Orders: Calprotectin, Fecal by Immunoassay; Future Flexible Sigmoidoscopy; Future Follow Up GI; Future Benign gestational thrombocytopenia 10/06/2019 Encounters Date Type Department Care Team Description 09/25/2024 8:40 AM EDT Office Visit [facility] [address], [address] [place] [address] [phone] Yessica Rodgers PA Crohn's disease of large intestine with abscess (CMS/HCC) (Primary Dx); Long-term current use of vedolizumab; H/O colectomy 09/25/2024 Telephone [facility] [address], [address] [place] [address] [phone] Yong Blanco, PharmD Cesar q4w 09/25/2024 Orders Only [facility] [address], [address] [place] [phone] Yessica Rodgers PA Crohn's disease of large intestine with abscess (CMS/HCC) (Primary Dx) 09/20/2024 Results Follow-Up [facility] [address], [address] [place] [phone] Yessica Rodgers PA 09/20/2024 Orders Only [facility] [address], [address] [place] [address] [phone] Yessica Rodgers PA 09/18/2024 Travel 09/12/2024 Telephone [facility] [address], [address] [place] [address] Yessica Rodgers PA HCN - Patient Message 09/10/2024 8:03 PM EDT - 09/11/2024 12:10 AM EDT Emergency [facility] [address] [place] [address] Lenny Chapman MD Crohn's disease with complication, unspecified gastrointestinal tract location (CMS/HCC) (Primary Dx) Discharge Disposition: Home or Self Care 09/10/2024 Travel from Last 3 Months Immunizations Immunization Administration Dates Next Due DTaP 07/20/1997, 5,1993,1993,1993 DTaP, Unspecified 07/20/1997, 5,1993,1993,1993 Hep A, Adult 02/08/2023,07/16/2022 Hep B, Adolescent or Pediatric 01/26/1994,1992,1993 HiB, unspecified 08/26/1994, 4,1993,1992 Hib (PRP-T) 08/26/1994,199 4,1993,1992 IPV 07/20/1997, 4,1993,1992 Influenza, injectable, quadr ivalent, preservative free 02/08/2023,01/27/2022,01/17/2021 Influenza, seasonal, injecta ble, preservative free 02/22/2024 MMR 07/20/1997,08/26/1994 OPV 07/20/1997, 4,1993,1992 TD (adult), 2 Lf tetanus tox oid, preservative free, adsorbed 09/28/2003 Td (adult) 09/28/2003 Tdap 11/10/2017 Varicella 05/04/2018,11/19/2017 Family History Medical History Relation Name Comments Cancer Mother Donna Other cancer Mother Donna Relation Name Status Comments Mother Donna Social History Tobacco Use Types Packs/Day Years [...] PM EDT Sexual Orientation Not on file Last Filed Vital Signs Vital Sign Reading Time Taken Comments Blood Pressure 98/67 09/10/2024 11:51 PM EDT Pulse 84 09/10/2024 11:51 PM EDT Temperature 36.4 C (97.5 F) 09/10/2024 11:51 PM EDT Respiratory Rate 18 09/10/2024 11:51 PM EDT Oxygen Saturation 99% 09/10/2024 11:51 PM EDT Inhaled Oxygen Concentration - - Weight 67.1 kg (148 lb) 09/25/2024 8:34 AM EDT Height 154.9 cm (5' 1 ) 09/25/2024 8:34 AM EDT Body Mass Index 27.96 09/25/2024 8:34 AM EDT Plan of Treatment Upcoming Encounters Date Type Department Care Team (Late st Contact Info) Description 11/08/2024 1:00 PM EDT Office Visit [facility] [address] [place] [address] Yaritza Fernández L, DO [address] [place] [phone] 12/27/2024 8:40 AM EDT Office Visit [facility] [address], [address] [place] [address] Yessica Rodgers, PA [address] [place] [address] Health Maintenance Due Date Last Done Comments [facility]-Infant/Child/Adol SDOH Screenings 1993 HPV Vaccines (1 - 3-dose series) 01/11/2008 [facility]- SDOH Screenings 2011 [facility]-Adult SDOH Screenings 2011 [facility]-Pap Smear 2014 [facility]-Cervical Cancer Screening 2023 [facility]-HPV/Cotest 2023 [id number] Vaccine ( season) 2023 04/27/2021, 10/29/2020, 10/08/2020 [facility]-Influenza Vaccine (#1) 12/18/202402/21, 02/08/2023, 01/27/2022, Additional history exists [facility]-Depression Screening 09/25/2025 025, 09/25/2024, 01/02/2021 [facility]-DTaP,Tdap,and Td Vaccines (7 - Td or Tdap) 11/11/2027 11/10/2017, 09/28/2003, 09/28/2003, Additional history exists [facility]-Zoster Vaccines (1 of 2) 2043 05/04/2018, 11/19/2017 [facility]-Hepatitis B Vaccines Completed 994, 1993, 1993 [facility]-HIB Vaccines Completed 08/26/1994, 01/1995, 1993, Additional history exists [facility]-IPV Vaccines Completed 07/20/1997, 06/1997, 1993, Additional history exists [facility]-Varicella Vaccines Completed 05/04/2018, 2017 [facility]-HIV Screening Completed 09/10/2022, , 06/15/2019 [facility]-Hepatitis C Screening Completed 2022, 07/05/2020, 06/15/2019 [facility]-Hepatitis A Vaccines Aged Out 02/08/2023, 06/19 No longer eligible based on patient's age to complete this topic [facility]-Obesity Intervention Completed 025, 06/14/2024, 02/11/2024, Additional history exists [facility]-Pneumococcal Vaccine: Pediatrics (0 to 5 Years) and At-Risk Patients (6 to 49 Years) Aged Out No longer eligible based on patient's age to complete this topic [facility]-Rotavirus Vaccines Aged Out No lo nger eligible based on patient's age to complete this topic Procedures Procedure Name Priority Date/Time Associated Diagnosis Comments CBC WITH AUTO DIFFERENTIAL Routine 09/20/2024 11:14 AM EDT COMPLETE METABOLIC PROFILE (CMP) Routine 09/20/2024 11:14 AM EDT C-REACTIVE PROTEIN, PLASMA Routine 09/20/2024 11:[address] ABDOMEN PELVIS W IV CONTRAST STAT 09/10/2024 9:42 PM EDT HCG, QUANTITATIVE STAT 09/10/2024 7:5 4 PM EDT C-REACTIVE PROTEIN, PLASMA STAT 09/10/2024 7:54 PM EDT CBC WITH AUTO DIFFERENTIAL STAT 09/10/2024 7:54 PM EDT COMPREHENSIVE METABOLIC PANEL, PLASMA STAT 09/10/2024 7:54 PM EDT HEPATITIS C ANTIBODY - ED W/REFLEX TO HCV QUANT PCR STAT 09/10/2022 10:15 PM EDT HIV 1/2 ANTIBODY/ANTIGEN SCREEN WITH REFLEX TO HIV I/II DIFFERENTIATION STAT 09/10/2022 10:15 PM EDT from Last 3 Months or Most Recently Relevant to Health Maintenance Results * COMPLETE METABOLIC PROFILE (CMP) (09/20/2024 11:14 AM EDT) us Yessica SIMMONS LAB BLOOD ORDERABLES Final Result * CBC and Differential (09/20/2024 11:14 AM EDT) Only the most recent of2 resultswithin the time period is included. Blood Venous blood specimen / Unknown Yessica B Stalyseelbe PA LAB BLOOD ORDERABLES Final Result * C-Reactive Protein, Plasma (09/20/2024 11:14 AM EDT) Only the most recent of2 resultswithin the time period is included. Blood Venous blood specimen / Unknown Yessica B Stuffelbeam PA LAB BLOOD ORDERABLES Final Result * CT Abdomen Pelvis w IV Contrast [...] Beta <1 <5 mIU/mL 8:45 PM EDT [facility] Blood Venous blood specimen / Unknown Venipuncture / Unknown 09/10/2024 7:54 PM EDT 09/10/2024 8:00 PM EDT Narrative [facility] - 09/10/2024 8:45 PM EDT [...] MD LAB BLOOD ORDERABLES Final Resul t [facility] [address] [place] [address] * (ABNORMAL) CMP (09/10/2024 7:54 PM EDT) Glucose, Plasma 100(H) 74 - 99 mg/dL 09/10/2024 8:45 PM EDT [facility] BUN, Plasma 12 7 - 21 mg/dL 09/10/2024 8:45 PM EDT [facility] Creatinine, Plasma 0.53(L) 0.60 - 1.10 mg/dL 09/10/2024 8:45 PM EDT [facility] BUN/Creatinine Ratio 23 09/10/2024 8:45 PM EDT [facility] Sodium, Plasma 139 136 - 145 mmol/L 09/10/2024 8:45 PM EDT [facility] Potassium, Plasma 4.0 3.6 - 4.9 mmol/L 09/10/2024 8:45 PM EDT [facility] Chloride, Plasma 102 97 - 107 mmol/L 09/10/2024 8:45 PM EDT [facility] CO2, Plasma 23 22 - 29 mmol/L 09/10/2024 8:45 PM EDT [facility] Anion Gap 14 6 - 16 mmol/L 09/10/2024 8:45 PM EDT [facility] Total Calcium, Plasma 9.0 8.9 - 10.2 mg/dL 09/10/2024 8:45 PM EDT [facility] Total Protein 7.5 6.3 - 7.9 g/dL 09/10/2024 8:45 PM EDT [facility] Albumin, Plasma 4.6 3.5 - 5.2 g/dL 09/10/2024 8:45 PM EDT [facility] AST, Plasma 14 10 - 35 U/L 09/10/2024 8:45 PM EDT [facility] ALT, Plasma 11 10 - 35 U/L 09/10/2024 8:45 PM EDT [facility] Alkaline Phosphatase, Plasma 72 35 - 104 U/L 09/10/2024 8:45 PM EDT [facility] Total Bilirubin, Plasma <0.2(L) 0.2 - 1.1 mg/dL 09/10/2024 8:45 PM EDT [facility] eGFRcr 127.0 mL/min/1.7 3m*2 09/10/2024 8:45 PM EDT [facility] Comment:Reported eGFRcr in m L/min/1.73m2 is based the CKD-EPI 2020 equation that does not use a race coefficient. Blood Venous blood specimen / Unknown Venipuncture / Unknown 09/10/2024 7:54 PM EDT 09/10/2024 8:00 PM EDT Armando Posada MD LAB BLOOD ORDERABLES Final Resul t Performing Organization Address City/[facility]/ZIP Co de Phone Number [facility] [address] [place] [address] * HIV 1 & 2 Antibody/Antigen Screen (09/10/2022 10:15 PM EDT) HIV 1 & 2 Antibody/Antigen Screen Non Reactive Non Reactive 09/10/2022 10:56 PM EDT [facility] Comment:Screening for HIV 1 & 2 antibodies, and P24 antigen is NONREACTIVE. No confirmatory testing is required. Blood Venous blood specimen / Unknown Venipuncture / Unknown 09/10/2022 10:15 PM EDT 09/10/2022 10:19 PM EDT Ginny Stallings MD LAB BLOOD ORDERABLES Final Resu lt Performing Organization Address City/[facility] Co de Phone Number [facility] [address] [place] [address] * Hepatitis C Antibody - ED (09/10/2022 10:15 PM EDT) Hepatitis C Antibody Negative Negative 09/10/2022 10:53 PM EDT [facility] Blood Venous blood specimen / Unknown Venipuncture / Unknown 09/10/2022 10:15 PM EDT 09/10/2022 10:19 PM EDT Ginny Stallings MD LAB BLOOD ORDERABLES Final Resu lt Performing Organization Address City/[facility] Co de Phone Number [facility] [address] [place] [address] from Last 3 Months or Most Recently Relevant to Health Maintenance Insurance ANTH Advance Directives * Full Code (Latest Code Status on File) Date Activated Date Inactivated Comments 01/27/2021 1:30 PM 02/02/2021 8:16 PM Question Answer Comments Patient has decision-making capacity? Yes Care Teams Steamer Tender Relationship Specialty Start Date End Date Azeem Alegria MD [address] [place] [address] PCP - General Internal Medicine 01/25/23
--- OUTSIDE RECORDS SUMMARY | 2024-11-01 09:14 | XMS_ITS | Encounter Summary ---
Author Organization [facility] Address [address] [place] [address] Care Team Providers Care Gas Pump Attendant Name Role Phone Azeem Alegria MD Primary Care Provider [phone] Encounter Details Date Type Department Care Team (Latest Contact Info) Description 09/18/2024 Travel Social History Tobacco Use Types Packs/Day Years [...] Description 11/08/2024 1:00 PM EDT Office Visit [facility] [address] [place] [phone] Yaritza Fernández, DO [address] [place] [phone] 12/27/2024 8:40 AM EDT Office Visit [facility] [address], [address] [place] [address] Yessica Rodgers PA [address] [place] [address] documented as of this encounter [...] documented as of this encounter Care Teams Gas Pump Attendant Relationship Specialty Start Date End Date Azeem Alegria MD [address] [place] [address] PCP - General Internal Medicine 01/25/23 documented as of this encounter
--- OUTSIDE RECORDS SUMMARY | 2024-11-01 09:15 | XMS_ITS | Encounter Summary ---
Author Organization Healthcare Address [address] [place] [address] Care Team Providers Care Anesthesia Director Name Role Phone Mikhail Ramos MD Primary Care Provider [phone] Azeem Alegria MD Primary Care Provider [phone] Reason for Visit * Reason Comments Med Refill Encounter Details Date Type Department Care Team (Late st Contact Info) Description 02/24/2022 Refill [facility] [address], [address] [place] [address] Yessica Rodgers PA [address] [place] [phone] Crohn's disease of large intestine with other complication (CMS/HCC) Social History Tobacco Use Types Packs/Day Years Used Date Smoking Tobacco: Never Smokeless Tobacco: Never Alcohol Use Standard Drinks/Week Comments No 0 (1 standard drink = 0.6 oz pur e alcohol) PHQ-2 Answer Date Recorded Patient Health Questionnaire-2 Score 0 11/05/2021 Comments No Sex and Gender Information Value Date Recorded Sex Assigned at Female 09/10/2022 10:03 PM EDT Legal Sex Female 7:41 PM EDT Gender Identity Female 09/10/2022 10:03 PM EDT Sexual Orientation Not on file documented as of this encounter Miscellaneous Notes * Telephone Encounter - Sid Figueredo - 02/24/2022 9:07 AM EST Per protocol, 1 medication(s), stelara, has been approved for 56 day supply with [facility] documented in this encounter Plan of Treatment Upcoming Encounters Date Type Department Care Team (Late st Contact Info) Description 11/08/2024 1:00 PM EDT Office Visit [facility] [address] [place] [phone] Yaritza Fernández, DO [address] [place] [address] 12/27/2024 8:40 AM EDT Office Visit [facility] [address], [address] [place] [address] Yessica Rodgers, PA [address] [place] [address] documented as of this encounter Visit Diagnoses Diagnosis Crohn's disease of large intestine with other complication (CMS/HCC) documented in this encounter Additional Health Concerns Infection Onset Date Last Indicated Resolved Time Gastrointestinal Rule-Out 09/10/2022 09/10/2022 2:23 PM EDT C. difficile Rule-Out 09/11/2022 09/11/20222022 3:19 PM EDT C. difficile Comment:Onset 09/11/2022 09/11/2022 09/11/2022 09/07/2023 7:05 AM EDT Assessment Noted Time A fall risk assessment has been complete d for the patient 11/05/2021 9:54 AM EDT documented as of this encounter Care Teams Anesthesia Director Relationship Specialty Start Date End Date Mikhail Ramos MD [address] [address] PCP - General 08/30/20 01/24/23 Azeem Alegria MD [address] [place] [address] PCP - General Internal Medicine 01/25/23 documented as of this encounter
--- OUTSIDE RECORDS SUMMARY | 2024-11-01 09:15 | XMS_ITS | Encounter Summary ---
Author Organization Healthcare Address [address] [place] [address] Care Team Providers Care Capping Machine Operator Name Role Phone Mikhail Ramos MD Primary Care Provider [phone] Azeem Alegria MD Primary Care Provider [phone] Reason for Visit * Reason Comments Med Refill Encounter Details Date Type Department Care Team (Late st Contact Info) Description 06/21/[address] [facility] [address], [address] [place] [address] Yessica Rodgers PA [address] [place] [address] Crohn's disease of large intestine with other complication (CMS/HCC) Social History Tobacco Use Types Packs/Day Years Used Date Smoking Tobacco: Former Cigarettes 0.3 0.5 Smokeless Tobacco: Never Alcohol Use Standard Drinks/Week Comments Never 0 (1 standard drink = 0.6 oz pur e alcohol) PHQ-2 Answer Date Recorded Patient Health Questionnaire-2 Score 0 05/11/2022 Comments No Sex and Gender Information Value Date Recorded Sex Assigned at Female 09/10/2022 10:03 PM EDT Legal Sex Female 7:41 PM EDT Gender Identity Female 09/10/2022 10:03 PM EDT Sexual Orientation Not on file COVID-19 Exposure Response Date Recorded In the last 10 days, have yo u been in contact with someone who was confirmed or suspected to have Coronavirus/COVID-19? No / Unsure 05/26/2022 12:37 PM EST documented as of this encounter Miscellaneous Notes * Telephone Encounter - Sid Figueredo - 06/22/2022 8:40 AM EST Per protocol, 1 medication(s), stelara, has been approved for 56 day supply with 2 [facility] documented in this encounter Plan of Treatment Upcoming Encounters Date Type Department Care Team (Late st Contact Info) Description 11/08/2024 1:00 PM EDT Office Visit [facility] [address] [place] [phone] Yaritza Fernández, DO [address] [place] [phone] 12/27/2024 8:40 AM EDT Office Visit [facility] Medicine [facility]ties [address], [address] [place] [address] Yessica Rodgers, IRIS [address] [place] [address] documented as of this encounter [...] has been complete d for the patient 05/11/2022 10:42 AM EST A Body Mass Index follow-up plan has been documented for the patient 05/11/2022 11:21 AM EST documented as of this encounter Care Teams Capping Machine Operator Relationship Specialty Start Date End Date Mikhail Ramos MD [address] [facility] [address] [place] [address] PCP - General 08/30/20 01/24/23 Azeem Alegria MD [address] [facility] [address] [place] [address] PCP - General Internal Medicine 01/25/23 documented as of this encounter
--- OUTSIDE RECORDS SUMMARY | 2024-11-01 09:15 | XMS_ITS | Encounter Summary ---
Author Organization [facility] Address [address] [place] [address] Care Team Providers Care Solutions Delivery Consultant Name Role Phone Azeem Alegria MD Primary Care Provider + [phone] Encounter Details Date Type Department Care Team (Late st Contact Info) Description 10/13/2023 Lab Requisition [facility] [address] [place] [address] Yaritza Fernández L, DO [address] [place] [address] Crohn's disease, unspecified, without complications (CMS/HCC) Social History Tobacco Use Types Packs/Day Years Used Date Smoking Tobacco: Former Cigarettes 0.3 0.5 Passive Smoke Exposure: Past Smokeless Tobacco: Never Alcohol Use Standard Drinks/Week Comments Never 0 (1 standard drink = 0.6 oz pur e alcohol) PHQ-2 Answer Date Recorded Patient Health Questionnaire-2 Score 0 08/11/2023 PHQ-2A Answer Date Recorded Patient Health Questionnaire-2 [...] Description 11/08/2024 1:00 PM EDT Office Visit [facility] [address] [place], [place] [address], [place] [phone] Yaritza Fernández DO [address] [place] [address] 12/27/2024 8:40 AM EDT Office Visit [facility] [address] [place] [address] Yessica Rodgers, IRIS [address] [place] [address] documented as of this encounter Procedures Procedure Name Priority Date/Time Associated Diagnosis Comments SURGICAL PATHOLOGY EXAM Routine 10/13/2023 Crohn's disease, unspecified, without complications ([facility]) documented in this encounter Results * Surgical Pathology Exam (10/13/2023) Case Report Surgical Pathology Case: [id number] Authorizing Provider: Yaritza Fernández DO Collected: 10/13/2023 Ordering Location: [facility] Lab Received: 10/13/2023 1042 Pathologist: Yobani Houston MD Specimen: Rectal, rectal biopsies 4 8:35 AM EDT [facility] Final Diagnosis RECTUM, BIOPSY: - 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 Proctitis. Inflammation was found from the anus to the rectum. This was moderate in severity, worsened compared to previous examinations. Biopsied. Normal taj-terminal ileum 4 8:35 AM EDT [facility] Special and Immunohistochemical Stains IHC: A1-2 CMV All controls show appropriate reactivity. All immunohistochemi stry, in situ hybridization, and histochemical tests were developed by and are performed at the [facility], [address] [facility] [facility], [facility], [place] [address]. All tests reported here, except those addressing HER2 (breast) and PD-L1 expression as predictive markers, have not been cleared by or approved by the US Food and Drug Administration (FDA). The FDA has determined that such clearance or approval is not necessary. The laboratory is regulated under CLIA as qualified to perform high-complexity testing. The tests are used for clinical purposes. They should not be regarded as investigational or for research. This assay has not been validated on decalcified tissues. Results should be interpreted with caution given the likelihood of false negativity on decalcified specimens. 8:35 AM EDT [facility] Gross Description A. RECTAL BIOPSIES Received in formalin labeled r ectal biopsies , are five perkins-brown soft tissue fragments measuring 0.1-0.3 cm in greatest dimension. Entirely submitted in cassette A1. Cold Time: 0 Sandra B Whitlock 8:35 AM EDT [facility] Tissue Specimen from rectum / Unknown 10/13/2023 10/13/2023 10:42 AM EDT Yaritza Fernández DO LAB PATHOLOGY ORDERABLES Fin al Result [facility] [address] [place] [address] documented in this encounter Visit Diagnoses Diagnosis Crohn's disease, unspecified, without complications (CMS/HCC) documented in this encounter Additional Health Concerns Assessment Noted Time A fall risk assessment has been complete d for the patient 08/11/2023 10:21 AM EDT A Body Mass Index follow-up plan has been documented for the patient 08/11/2023 1:50 PM EDT documented as of this encounter Care Teams Solutions Delivery Consultant Relationship Specialty Start Date End Date Azeem Alegria MD [address] [place] [address] PCP - General Internal Medicine 01/25/23 documented as of this encounter
--- OUTSIDE RECORDS SUMMARY | 2024-11-01 09:15 | XMS_ITS | Encounter Summary ---
Author Organization Healthcare Address [address] [place] [address] Care Team Providers Care Teacher Public Health Name Role Phone Mikhail Ramos MD Primary Care Provider [phone] Azeem Alegria MD Primary Care Provider [phone] Reason for Visit * Reason Onset Date Comments Med Refill 10/09/2021 Encounter Details Date Type Department Care Team (Late st Contact Info) Description 10/09/2021 Refill [facility] [address] [place] [address] Yessica Rodgers PA [address] [place] [address] Crohn's disease of large intestine with other complication (CMS/HCC) Social History Tobacco Use Types Packs/Day Years Used Date Smoking Tobacco: Never Smokeless Tobacco: Never Alcohol Use Standard Drinks/Week Comments No 0 (1 standard drink = 0.6 oz pur e alcohol) PHQ-2 Answer Date Recorded Patient Health Questionnaire-2 Score 0 05/07/2021 Comments No Sex and Gender Information Value Date Recorded Sex Assigned at Female 09/10/2022 10:03 PM EDT Legal Sex Female 7:41 PM EDT Gender Identity Female 09/10/2022 10:03 PM EDT Sexual Orientation Not on file documented as of this encounter Miscellaneous Notes * Telephone Encounter - Sid Figueredo - 10/09/2021 9:51 AM EDT Per protocol, 1 medication(s), stelara, has been approved for 56 day supply with 2 refill(s). The medication refill request(s) has been sent to [facility]. documented in this encounter Plan of Treatment Upcoming Encounters Date Type Department Care Team (Late st Contact Info) Description 11/08/2024 1:00 PM EDT Office Visit [facility] [address] [place] [phone] Yaritza Fernández, [address] [place] [address] 12/27/2024 8:40 AM EDT Office Visit [facility] [address] [place] [address] Yessica Rodgers, IRIS [address] [place] [address] documented as of this encounter [...] has been complete d for the patient 05/07/2021 10:05 AM EST documented as of this encounter Care Teams Teacher Public Health Relationship Specialty Start Date End Date Mikhail Ramos MD [address] [id number] PCP - General 08/30/20 01/24/23 Azeem Alegria MD [address] [place] [address] PCP - General Internal Medicine 01/25/23 documented as of this encounter
--- OUTSIDE RECORDS SUMMARY | 2024-11-01 09:15 | XMS_ITS | Encounter Summary ---
Author Organization Healthcare Address [address] [place] [address] Care Team Providers Care Event Designer Name Role Phone Azeem Alegria MD Primary Care Provider [phone] Encounter Details Date Type Department Care Team (Late st Contact Info) Description 07/14/2024 Results Follow-Up [facility] [address] [place] [address] Yessica Rodgers PA [address] [place] [address] Social History Tobacco Use Types [...] as of this encounter Functional Status * Calculated C-SSRS Risk Score (Lifetime/Recent) Answer Date of Assessment Author No Risk Indicated 09/10/2024 8:34 PM EDT Romulo Saucedo RN * Question Answer Date of Assessment Author 1. Wish to be (Past 1 Month) No 025 8:34 PM EDT Romulo Saucedo, LI 2. Non-Specific Active Suici jared Thoughts (Past 1 Month) No 09/10/2024 8:34 PM EDT Tae Saucedo RN 6. Suicidal Behavior (Lifetime) No 8:34 PM EDT Romulo Saucedo, LI documented as of this encounter Plan of Treatment Upcoming Encounters Date Type Department Care Team (Late st Contact Info) Description 11/08/2024 1:00 PM EDT Office Visit [facility] [address] [place] [address] Yaritza Fernández, [address] [place] [address] 12/27/2024 8:40 AM EDT Office Visit [facility] [address] [place] [address] Yessica Rodgers, PA [address] [place] [address] documented as of this encounter [...] documented as of this encounter Care Teams Event Designer Relationship Specialty Start Date End Date Azeem Alegria MD [address] [place] [address] PCP - General Internal Medicine 01/25/23 documented as of this encounter
--- OUTSIDE RECORDS SUMMARY | 2024-11-01 09:15 | XMS_ITS | Encounter Summary ---
Author Organization [facility] Address [address] [place] [address] Care Team Providers Care Budget Engineer Name Role Phone Azeem Alegria MD Primary Care Provider [phone] Encounter Details Date Type Department Care Team (Late st Contact Info) Description 09/20/2024 Orders Only [facility] [address] [place] [address] Yessica Rodgers PA [address] [place] [address] Social History Tobacco Use Types [...] Description 11/08/2024 1:00 PM EDT Office Visit [facility] [address] [place] [phone] Yaritza Fernández L, DO [address] [place] [address] 12/27/2024 8:40 AM EDT Office Visit [facility] [address] [place] [address] Yessica Rodgers PA [address] [place] [address] documented as of this encounter Procedures Procedure Name Priority Date/Time Associated Diagnosis Comments COMPLETE METABOLIC PROFILE (CMP) Routine 09/20/2024 11:14 AM EDT CBC WITH AUTO DIFFERENTIAL Routine 09/20/2024 11:14 AM EDT C-REACTIVE PROTEIN, PLASMA Routine 09/20/2024 11:14 AM EDT documented in this encounter Results * CBC and Differential (09/20/2024 11:14 AM EDT) Blood Venous blood specimen / Unknown us [facility] B[facility]OD ORDERABLES Final Result * COMPLETE METABOLIC PROFILE (CMP) (09/20/2024 11:14 AM EDT) us [facility] Final Result * C-Reactive Protein, Plasma (09/20/2024 11:14 AM EDT) Blood Venous blood specimen / Unknown us [facility] ORDER[facility]LES Final Result documented in this encounter Visit Diagnoses Not on filedocumented [...] documented as of this encounter Care Teams Budget Engineer Relationship Specialty Start Date End Date Azeem Alegria MD [address] [place] [address] PCP - General Internal Medicine 01/25/23 documented as of this encounter
--- OUTSIDE RECORDS SUMMARY | 2024-11-01 09:15 | XMS_ITS | Encounter Summary ---
Author Organization [facility] Address [address] [place] [address] Care Team Providers Care Sheet Finisher Name Role Phone Azeem Alegria MD Primary Care Provider + [phone] Encounter Details Date Type Department Care Team (Latest Contact Info) Description 09/10/2024 Travel Social History Tobacco Use Types Packs/Day [...] Indicated 09/10/2024 8:34 PM EDT Romulo Saucedo, RN * Question Answer Date of Assessment Author 1. Wish to be (Past 1 Month) No 025 8:34 PM EDT Romulo Saucedo, RN 2. Non-Specific Active Suici jared Thoughts (Past 1 Month) No 09/10/2024 8:34 PM EDT Tae Saucedo, RN 6. Suicidal Behavior (Lifetime) No 8:34 PM EDT Romulo Saucedo, RN documented as of this encounter Plan of Treatment Upcoming Encounters Date Type Department Care Team (Late st Contact Info) Description 11/08/2024 1:00 PM EDT Office Visit [facility] [address] [place] [address] Yaritza Fernández, DO [address] [place] [address] 12/27/2024 8:40 AM EDT Office Visit [place] [facility] [address] [place] [address] Yessica Rodgers, PA [address] [place] [address] documented as of this encounter [...] documented as of this encounter Care Teams Sheet Finisher Relationship Specialty Start Date End Date Azeem Alegria MD [address] [place] [address] PCP - General Internal Medicine 01/25/23 documented as of this encounter
--- OUTSIDE RECORDS SUMMARY | 2024-11-01 09:15 | XMS_ITS | Encounter Summary ---
Author Organization [facility] Address [address] [place] [address] Care Team Providers Care Oven Operator Name Role Phone Azeem Alegria MD Primary Care Provider [phone] Reason for Visit * Reason Onset Date Comments HCN - Patient Message 09/12/2024 Encounter Details Date Type Department Care Team (Late st Contact Info) Description 09/12/2024 Telephone [facility] [facility] [address] [place] [address] Yessica Rodgers, IRIS [address] [place] [address] HCN - Patient Message Social History Tobacco Use Types Packs/Day Years [...] encounter Miscellaneous Notes * Telephone Encounter - Janina Villasenor - 09/12/2024 8:24 AM EDT Same Day Appt/Overbook Request Reason for Call: Patient was seen in ED 09/10 for Crohn's flare up. Was instructed to call and beseen sooner than scheduled follow up. Best contact number: [phone] (mobile) Optimal time of day to reach caller: ANYTIME Additional comments/information from caller: Note: Please do not reply to this message. Follow-up communication and further actions as a result of this message need to be communicated with the patient directly, if the patient is not active onMyChart. If the patient is active on MyChart, they will receive notification of the communication/outcome via [employer]. documented in this encounter Plan of Treatment Upcoming Encounters Date Type Department Care Team (Late st Contact Info) Description 11/08/2024 1:00 PM EDT Office Visit [facility] [address] [place] [phone] Yaritza Fernández, [address] [place] [address] 12/27/2024 8:40 AM EDT Office Visit [facility] [facility] [address] [place] [address] Yessica Rodgers PA [address] [place] [address] documented as of this encounter Visit Diagnoses [...] documented as of this encounter Care Teams Oven Operator Relationship Specialty Start Date End Date Azeem Alegria MD [address] [place] [address] PCP - General Internal Medicine 01/25/23 documented as of this encounter
[2024-11-01] MEDS: VEDOLIZUMAB 300 MG in 0.9 % SODIUM CHLORIDE 250 ML 500 MG IV (09:27)
[2024-11-01] MEDS: SODIUM CHLORIDE 0.9% 10ML FLUSH SYRINGE 10 ML IV (09:30)
[2024-11-01 09:50] VITALS: BP 103/63; PULSE 72; RESP 18; TEMP 36.8; O2SAT 98
[2024-11-01 09:56] VITALS: BMI 26.4
[2024-11-01 10:20] LABS: Hematocrit 34.6 % (37.0-47.0); Hemoglobin 10.8 g/dL (12.2-16.2); Immature Granulocytes % 0.2 %; Mean Corpuscular HGB Conc 31.2 g/dL (31.8-35.4); Mean Corpuscular Hemoglobin 24.1 pg (27.0-31.2); Mean Corpuscular Volume 77.2 fl (81-99); Nucleated Red Blood Cells % 0 %; Platelet Count 199 K/mm3 (142-424); Red Blood Count 4.48 M/mm3 (4.20-5.40); Red Cell Distribution Width-SD 37.2 fL; White Blood Count 4.8 K/mm3 (4.8-10.8)
[2024-11-01 10:25] VITALS: BP 115/69; PULSE 70
[2024-11-01 10:26] LABS: Alanine Aminotransferase 10 U/L (12-78); Albumin Level 4.3 g/dl (3.5-5.0); Albumin/Globulin Ratio 1.6 (1.1-1.8); Alkaline Phosphatase 65 U/L (38-126); Anion Gap 15.9 mEq/L (5-15); Aspartate Amino Transferase 16 U/L (14-36); Bilirubin,Total 0.2 mg/dl (0.2-1.3); Blood Urea Nitrogen 7 mg/dl (7-17); Calcium 9.2 mg/dl (8.4-10.2); Carbon Dioxide 27 mmol/L (22.0-30.0); Chloride 102 mmol/L (98-107); Creatinine Clearance Estimated 136 mL/min (50-200); Creatinine,Serum 0.60 mg/dl (0.52-1.04); Estimated Glomerular Filt Rate 117 ml/min (>60); GFR (African American) 141 ML/MIN (>60); Globulin 2.7 g/dL (1.3-3.2); Glucose 94 mg/dl (74-100); Potassium 3.9 mmoL/L (3.5-5.1); Sodium 141 mmol/L (136-145); Total Protein,Serum 7.0 g/dl (6.3-8.2)
[2024-11-01 10:31] LABS: C-Reactive Protein 0.9 mg/L (0-4)
== END 2024-11-01 10:30 | disposition home or self-care (01) ==
LOC: INF 09:13
PROVIDERS: PCP Internal Medicine Adolescent Medicine; Visit Provider Physician Assistant
DX: K50.114 Crohn's disease of large intestine with abscess (principal)
CPT/HCPCS: 80053; 85025; 86140; 86480; 96413; J3380; J7050